=== PATIENT | male | born 1945 | race Caucasian/White ===

== ENCOUNTER 2017-02-20 13:55 | Inpatient (IN) | payer BC, OTHER ==
[2017-02-20] VITALS (11 sets, daily range): BP systolic 80–146; BP diastolic 59–88; PULSE 56–61; TEMP 36.8–37; O2SAT 94–99; Ht 177.8 cm; Wt 91.2 kg
[~2017-02-20] VITALS: Ht 177.8 cm; Wt 91.2 kg
[~2017-02-20 13:55] MED LIST: FISH OI1 OR; GLUC10007 PO; LISI-725 PO; METO25TA31 PO; MULT-506 PO; SIMV80TA5 OR
[2017-02-20] MEDS ORDERED: SODIUM CHLORIDE 0.9% 500ML 500 ML IV STA (14:03)
[2017-02-20] MEDS ORDERED: TICAGRELOR 90 MG TAB PO ONE (14:05)
[2017-02-20] MEDS ORDERED: FENTANYL CITRATE INJ 50 MCG/1 ML 2 ML VIAL ONE (14:07)
[2017-02-20] MEDS ORDERED: MIDAZOLAM HCL 1 MG/ML 2ML VIAL ONE (14:07)
[2017-02-20] MEDS ORDERED: HEPARIN SOD (PORCINE) 1000 UNIT/ML 10 ML VIAL ONE (14:08)
[2017-02-20] MEDS ORDERED: NURSING VERBAL MED ORDER STA (14:09)
[2017-02-20 14:17] LABS: BASO % 0.2 %; BASO ABS # 0.02 K/uL (0-0.2); COMPLETE YES; EOS % 0.9 %; HEMATOCRIT 49.4 % (42-52); IG% 0.1 %; LYMPH % 28.4 %; LYMPH ABS # 2.87 K/uL (1.2-3.4); MEAN CELL VOLUME 97.2 fL (80-100); MEAN CORPUSCULAR HEMOGLOBIN 34.1 pg (25-34); MEAN PLATELET VOLUME 10.9 fL (7.4-10.4); MONO % 9.7 %; NEUT % 60.7 %; PLATELET COUNT 201 K/uL (130-400); RED BLOOD COUNT 5.08 M/uL (4.7-6.1)
[2017-02-20 14:41] LABS: BLOOD UREA NITROGEN 15 mg/dl (7-18); BUN/CREATININE RATIO 13.3 (10-20); CALCIUM 8.9 mg/dl (8.5-10.1); CARBON DIOXIDE 29 mmol/L (21-32); CHLORIDE 105 mmol/L (98-107); GLUCOSE 220 mg/dl (70-99); POTASSIUM 3.8 mmol/L (3.5-5.1); SODIUM 139 mmol/L (136-145)
--- NOTE | 2017-02-20 14:41 | DIAGNOSTIC IMAGING REPORT ---
CHEST ONE VIEW PORTABLE CLINICAL HISTORY: Chest Pain COMPARISON STUDY: 12/28/2009 FINDINGS: There are postsurgical changes of midline sternotomy. Heart is mildly enlarged. There is mild central pulmonary vascular congestion. There is no focal pulmonary consolidation. There are no pleural effusions.[ IMPRESSION: Cardiomegaly and mild central pulmonary vascular congestion. No evidence of focal pulmonary consolidation Electronically signed by: Satish Newton M.D. 02/20/2017 2:39 PM Dictated Date/Time: 02/20/2017 2:39 PM
[2017-02-20] MEDS ORDERED: NiCARDipine HCL INJ 2.5 MG/ML 10 ML AMP ONE (14:51)
[2017-02-20] MEDS ORDERED: NITROGLYCERIN/D5W 100MCG/ML 20ML SYR ONE (14:52)
[2017-02-20 15:02] LABS: CKMB/CK RATIO 12.4 (0-3.0)
[2017-02-20] MEDS ORDERED: EPTIFIBATIDE 2 MG/ML 10 ML VIAL IV ONE (15:13)
[2017-02-20] MEDS ORDERED: EPTIFIBATIDE 0.75 MG/ML 75MG VIAL IV ONE (15:48)
[2017-02-20] MEDS ORDERED: NITROGLYCERIN OINT 2% 1GM PACKET ONE (15:58)
--- NOTE | 2017-02-20 16:01 | EMERGENCY ROOM VISIT NOTE ---
History Report prepared by Maggie: Jolynn Sosa Under the Supervision of: Tammy ToO. First contact with patient: 13:56 Chief Complaint: HEART ALERT Stated Complaint: HEART ALERT History of Present Illness The patient is a 71 year old male who presents to the Emergency Room with complaints of persistent left shoulder pain that began around 0400 this morning. The patient states that he has a history of a CABG 11 years ago. He states that over the last several days he has been doing increased strenuous work outside. The patient states that this morning at 0400 he developed left shoulder and left arm pain. He states that he went to the walk-in clinic for what he described as a muscle ache. The patient states that his muscle felt tight. He denies any nausea, shortness of breath, or vomiting. He denies being on any Plavix. The patient states that he takes Metoprolol daily. Source of History: patient Onset: 0400 this morning Position: shoulder (left) Quality: ache, other (tightness) Timing: other (persistent) Modifying Factors (Worsening): exertion Review of Systems See HPI for pertinent positives & negatives. A total of 10 systems reviewed and were otherwise negative. Past Medical & Surgical Medical Problems: (1) Heart disease (2) Hypertension Surgical Problems: (1) S/P CABG x 1 Family History Diabetes mellitus FH: heart disease Hypertension Social History Alcohol Use: none Marital Status: Housing Status: lives with significant other Occupation Status: employed Current/Historical Medications Scheduled , 1 OR DAILY Glucosamine Sulfate (Glucosamine), 1,000 MG PO DAILY Lisinopril (Zestril), 20 MG PO DAILY Metoprolol Tartrate (Metoprolol), 50 MG PO DAILY Multivitamin (Multivitamin), 1 TAB PO DAILY Simvastatin (Zocor), 80 MG OR HS Allergies Coded Allergies: Penicillins (Verified Allergy, Severe, ANAPHYLAXIS, 02/20/17) Physical Exam Vital Signs Date Time Temp Pulse Resp B/P Pulse Ox O2 Delivery O2 Flow Rate FiO2 02/20/17 14:01 95 Nasal Cannula 2.0 02/20/17 14:01 95 Nasal Cannula 2.0 02/20/17 14:01 93 18 173/96 95 Nasal Cannula 2.0 Physical Exam GENERAL: Sitting up in bed, alert, well appearing, well nourished, no distress, non-toxic EYE EXAM: normal conjunctiva. OROPHARYNX: no exudate, no erythema, lips, buccal mucosa, and tongue normal and mucous membranes are moist NECK: supple, no nuchal rigidity, no adenopathy, non-tender CHEST: Old midline incision in sternal region. LUNGS: Clear to auscultation. Normal chest wall mechanics HEART: no murmurs, S1 normal and S2 normal ABDOMEN: abdomen soft, non-tender, normo-active bowel sounds, no masses, no rebound or guarding. BACK: Back is symmetrical on inspection and there is no deformity, no midline tenderness, no CVA tenderness. SKIN: no rashes and no bruising UPPER EXTREMITIES: upper extremities are grossly normal. Radial pulses are equal bilaterally. LOWER EXTREMITIES: No pitting edema. Calves are equal bilaterally NEURO EXAM: Normal sensorium, cranial nerves II-XII grossly intact, normal speech, no gross weakness of arms, no gross weakness of legs. Medical Decision & Procedures ER Provider Diagnostic Interpretation: Radiology results as stated below per my review and the radiologist's interpretation: CHEST ONE VIEW PORTABLE CLINICAL HISTORY: Chest Pain COMPARISON STUDY: 12/28/2009 FINDINGS: There are postsurgical changes of midline sternotomy. Heart is mildly enlarged. There is mild central pulmonary vascular congestion. There is no focal pulmonary consolidation. There are no pleural effusions.[ IMPRESSION: Cardiomegaly and mild central pulmonary vascular congestion. No evidence of focal pulmonary consolidation Electronically signed by: Satish Newton M.D. 02/20/2017 2:39 PM Dictated Date/Time: 02/20/2017 2:39 PM Laboratory Results 02/20/17 14:05 Red Blood Count 5.08, Mean Corpuscular Volume 97.2, Mean Corpuscular Hemoglobin 34.1, Mean Corpuscular Hemoglobin Concent 35.0, Mean Platelet Volume 10.9, Neutrophils (%) (Auto) 60.7, Lymphocytes (%) (Auto) 28.4, Monocytes (%) (Auto) 9.7, Eosinophils (%) (Auto) 0.9, Basophils (%) (Auto) 0.2, Neutrophils # (Auto) 6.13, Lymphocytes # (Auto) 2.87, Monocytes # (Auto) 0.98, Eosinophils # (Auto) 0.09, Basophils # (Auto) 0.02 02/20/17 14:05 Test 02/20/17 14:05 White Blood Count 10.10 K/uL (4.8-10.8) Red Blood Count 5.08 M/uL (4.7-6.1) Hemoglobin 17.3 g/dL (14.0-18.0) Hematocrit 49.4 % (42-52) Mean Corpuscular Volume 97.2 fL (80-100) Mean Corpuscular Hemoglobin 34.1 pg (25-34) Mean Corpuscular Hemoglobin Concent 35.0 g/dl (32-36) Platelet Count 201 K/uL (130-400) Mean Platelet Volume 10.9 fL (7.4-10.4) Neutrophils (%) (Auto) 60.7 % Lymphocytes (%) (Auto) 28.4 % Monocytes (%) (Auto) 9.7 % Eosinophils (%) (Auto) 0.9 % Basophils (%) (Auto) 0.2 % Neutrophils # (Auto) 6.13 K/uL (1.4-6.5) Lymphocytes # (Auto) 2.87 K/uL (1.2-3.4) Monocytes # (Auto) 0.98 K/uL (0.11-0.59) Eosinophils # (Auto) 0.09 K/uL (0-0.5) Basophils # (Auto) 0.02 K/uL (0-0.2) RDW Standard Deviation 45.6 fL (36.4-46.3) RDW Coefficient of Variation 12.8 % (11.5-14.5) Immature Granulocyte % (Auto) 0.1 % Immature Granulocyte # (Auto) 0.01 K/uL (0.00-0.02) Anion Gap 5.0 mmol/L (3-11) Estimated GFR () 79.0 Estimated GFR (Non- 68.1 BUN/Creatinine Ratio 13.3 (10-20) Calcium Level 8.9 mg/dl (8.5-10.1) Total Creatine Kinase 401 U/L (39-308) Creatine Kinase MB 49.7 ng/ml (0.5-3.6) Creatine Kinase MB Ratio 12.4 (0-3.0) Troponin I 2.800 ng/ml (0-0.045) Laboratory results per my review. Medications Administered Medications (Trade) Dose Ordered Sig/Basia Route Start Time Stop Time Status Last Admin Dose Admin Sodium Chloride (Nss 500ml) 500 ml @ 999 mls/hr Q31M STAT IV 02/20/17 14:03 02/20/17 14:33 DC 02/20/17 14:03 999 MLS/HR Ticagrelor (Brilinta Cap) 180 mg STK-MED ONCE PO 02/20/17 14:05 02/20/17 14:06 DC 02/20/17 14:05 180 MG ECG Indication: chest pain, back/shoulder pain Rate (beats per minute): 91 Rhythm: sinus rhythm Findings: Q waves (Inferior), ST depression (Anterior), ST elevation (Inferior) , other (inferior STEMI) Comparison ECG Date: 12/28/09 Change: EKG Change: When compared to EKG on 12/28/09, ST elevations inferiorly are new, ST depressions anteriorly are new, Q waves inferiorly are old. ED Course ED COURSE: Vital signs were reviewed and showed hypertensive, tachycardic The patients medical record was reviewed The above diagnostic studies were performed and reviewed. ED treatments and interventions as stated above. 1356: The patient was evaluated in room B1. A complete history and physical examination was performed. 1357: Dr. Malave, Cardiology arrived at the patients bedside. 1403: Dr. Malave, Cardiology suggested to take the patient in for a cardiac catheterization. Ordered Sodium Chloride 500 ml @ 999 mls/hr IV. 1404: The patient has agreed to go to have a cardiac catheterization at this time. 1405: Ordered Ticagrelor 180 mg PO. 1407: Ordered Versed Inj 2 mg .route, Fentanyl Inj 100 mcg .route. 1408: Ordered Heparin Sod/Ns 2 units/DE 1000 unit .route, Heparin IV Bolus 10207 unit .route. 1415: The patient departed for the labor delivery specialist at this time. 1422: I discussed the patients case with Dr. Tam, [facility] [place]. He is going to evaluate the patient for further treatment after the cardiac catheterization. Medical Decision Differential diagnoses includes but is not limited to acute coronary syndrome, myocardial infarction, pericarditis, pulmonary embolus, aortic dissection, pneumonia, pneumothorax, musculoskeletal, shingles, esophageal. Patient is a 71-year-old male who presents to the ER transferred from the [facility] with midsternal chest tightness and arm tightness. This improved after a dose of aspirin. EMS was called and EKG was transmitted which showed an inferior STEMI with reciprocal changes. He does have a history of a previous CABG. Prior to presentation I activated a STEMI alert. EKG on presentation reconfirms an inferior STEMI. Patient was given antiplatelet along the ER by interventional cardiology. Patient was slightly tachycardic and hypertensive. He had are received aspirin. Blood work and IVs were obtained. He was placed on pacer pads. He was evaluated by interventional cardiology and taken directly to the Hospital Liaison for his inferior STEMI. Consults Time Called: 1420 Consulting Physician: LOUIS Calvillo Returned Call: 1422 I discussed the patients case with LOUIS Calvillo. He is going to evaluate the patient for further treatment after the cardiac catheterization. Impression Primary Impression: ST elevation myocardial infarction (STEMI) of inferior wall Critical Care I have personally spent 35 minutes of critical care time in the direct management of this patient. This includes bedside care, interpretation of diagnostic studies, and testing, discussion with consultants, patient, and family members, and other required patient management activities. This 35 minutes is in excess of all separately billable procedures. Scribe Attestation The scribe's documentation has been prepared under my direction and personally reviewed by me in its entirety. I confirm that the note above accurately reflects all work, treatment, procedures, and medical decision making performed by me. Departure Information Dispostion Being Evaluated By Hospitalist Ora Nicole M.D. (PCP)
[2017-02-20] MEDS ORDERED: LIDOCAINE/EPINEPHRINE 1% INJ 50 ML VIAL ONE (16:17)
[2017-02-20] MEDS ORDERED: ONDANSETRON INJ 2 MG/ML 2 ML VIAL IV PRN (17:00)
[2017-02-20] MEDS ORDERED: EPTIFIBATIDE BOLUS / DRIP IV ONE (17:00)
[2017-02-20] MEDS ORDERED: ACETAMINOPHEN 325 MG TAB PO PRN (17:00)
[2017-02-20] MEDS ORDERED: PATIENT'S HEIGHT AND/OR WEIGHT NEEDED SCH (17:30)
[2017-02-20] MEDS: SODIUM CHLORIDE 0.9% 1000ML 1,000 ML IV SCH ×2 (17:33→23:09)
--- NOTE | 2017-02-20 18:10 | History and Physical ---
History & Physical Date & Time of Service: February 20, 2017 at 17:56 Chief Complaint: St Elevation Myocardial Infarction Stemi Primary Care Physician: Ora Cabello M.D. History of Present Illness Source: patient, other 71 y/o M Hx CAD, HTN, HPL. Pt presented with CP - inferior elevations noted on initial EKG. Pt was transported directly to the manager lab and had a stent placed in an occluded OM graft. No complications were reported and he is CP- free, recovering in the ICU at the time of medical evaluation. He denies SOB, N /V or palpitations. 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 Smoking Status: Never Smoker Marital Status: Occupational Status: employed Multi-Drug Resistant Organisms History of MDRO: No Allergies Coded Allergies: Penicillins (Verified Allergy, Severe, ANAPHYLAXIS, 02/20/17) Home Medications Scheduled , 1 OR DAILY Glucosamine Sulfate (Glucosamine), 1,000 MG PO DAILY Lisinopril (Zestril), 20 MG PO DAILY Metoprolol Tartrate (Metoprolol), 50 MG PO DAILY Multivitamin (Multivitamin), 1 TAB PO DAILY Simvastatin (Zocor), 80 MG OR HS Review of Systems Constitutional: No chills, No fever, No sweats Eyes: No eye pain, No worsening of vision ENT: No hearing loss, No nasal symptoms, No unusual epistaxis Respiratory: + shortness of breath, No cough, No sputum, No wheezing Cardiovascular: + chest pain, No PND, No orthopnea Abdomen: No nausea, No pain, No vomiting Musculoskeletal: No joint pain, No muscle pain Genitourinary - Male: No dysuria, No hematuria, No urinary frequency, No urinary urgency Neurologic: No memory loss, No paralysis, No weakness Psychiatric: No depression symptoms Endocrine: No fatigue Hematologic / Lymphatic: No abnormal bleeding/bruising Integumentary: No rash Allergic / Immunologic: No environmental allergies Physical Exam Vital Signs Date Time Temp Pulse Resp B/P Pulse Ox O2 Delivery O2 Flow Rate FiO2 02/20/17 17:45 56 20 146/79 98 02/20/17 17:30 60 20 141/80 97 02/20/17 17:15 60 18 131/75 96 02/20/17 17:00 36.8 61 18 138/81 96 Room Air 02/20/17 17:00 36.8 61 18 138/81 96 Room Air 4.0 02/20/17 16:35 68 16 122/83 97 Room Air 02/20/17 16:20 73 16 144/88 99 Nasal Cannula 4 02/20/17 14:01 95 Nasal Cannula 2.0 02/20/17 14:01 95 Nasal Cannula 2.0 02/20/17 14:01 93 18 173/96 95 Nasal Cannula 2.0 General Appearance: WD/WN, no apparent distress Head: normocephalic, atraumatic Eyes: normal inspection, PERRL, EOMI ENT: normal ENT inspection, hearing grossly normal, TMs normal, pharynx normal Neck: supple, no JVD Respiratory/Chest: chest non-tender, lungs clear, normal breath sounds Cardiovascular: regular rate, rhythm, no edema, no gallop Abdomen/GI: normal bowel sounds, non tender, soft Back: normal inspection Extremities/Musculoskelatal: normal inspection, no calf tenderness, normal capillary refill Neurologic/Psych: enamel drier II-XII nml as tested, no motor/sensory deficits, alert, normal mood/affect, normal reflexes, oriented x 3 Skin: normal color, warm/dry, no rash Diagnostics Laboratory Results Results Past 24 Hours Test 02/20/17 14:05 02/20/17 15:17 02/20/17 15:40 Range/Units White Blood Count 10.10 4.8-10.8 K/uL Red Blood Count 5.08 4.7-6.1 M/uL Hemoglobin 17.3 14.0-18.0 g/dL Hematocrit 49.4 42-52 % Mean Corpuscular Volume 97.2 80-100 fL Mean Corpuscular Hemoglobin 34.1 25-34 pg Mean Corpuscular Hemoglobin Concent 35.0 32-36 g/dl Platelet Count 201 130-400 K/uL Mean Platelet Volume 10.9 7.4-10.4 fL Neutrophils (%) (Auto) 60.7 % Lymphocytes (%) (Auto) 28.4 % Monocytes (%) (Auto) 9.7 % Eosinophils (%) (Auto) 0.9 % Basophils (%) (Auto) 0.2 % Neutrophils # (Auto) 6.13 1.4-6.5 K/uL Lymphocytes # (Auto) 2.87 1.2-3.4 K/uL Monocytes # (Auto) 0.98 0.11-0.59 K/uL Eosinophils # (Auto) 0.09 0-0.5 K/uL Basophils # (Auto) 0.02 0-0.2 K/uL RDW Standard Deviation 45.6 36.4-46.3 fL RDW Coefficient of Variation 12.8 11.5-14.5 % Immature Granulocyte % (Auto) 0.1 % Immature Granulocyte # (Auto) 0.01 0.00-0.02 K/uL Sodium Level 139 136-145 mmol/L Potassium Level 3.8 3.5-5.1 mmol/L Chloride Level 105 98-107 mmol/L Carbon Dioxide Level 29 21-32 mmol/L Anion Gap 5.0 3-11 mmol/L Blood Urea Nitrogen 15 7-18 mg/dl Creatinine 1.10 0.60-1.40 mg/dl Estimated GFR () 79.0 Estimated GFR (Non- 68.1 BUN/Creatinine Ratio 13.3 10-20 Random Glucose 220 70-99 mg/dl Calcium Level 8.9 8.5-10.1 mg/dl Total Creatine Kinase 401 39-308 U/L Creatine Kinase MB 49.7 0.5-3.6 ng/ml Creatine Kinase MB Ratio 12.4 0-3.0 Troponin I 2.800 0-0.045 ng/ml Kaolin Activated Coagulation Time 183 255 94-140 SECONDS Microbiology Results 02/20/17 MRSA DNA Surveillance Screen, Received Pending EKG Initial EKG: Sinus rhythm - inferior segment ST elevations / STEMI Impression Assessment and Plan 71 y/o M Hx CAD, HTN, HPL. Pt presented with CP - inferior elevations noted on initial EKG. Pt was transported directly to the manager lab and had a stent placed in an occluded OM graft. No complications were reported and he is CP- free, recovering in the ICU at the time of medical evaluation. He denies SOB, N /V or palpitations. 1) CAD/HI - pt is post cath/stent as above - there was some concern of thrombus formation in the stented vessel so that per cardio he will remain on Integrilin overnight. Pt will continue his ASA, B sharmaine, Statin - likely will be D/Cd on Plavix as well. 2) HTN - Cont Toprol, Lisinopril 3) HPL - statin therapy continued - dose increased 4) Marginal EF on echo 2013 - no reported history of volume overload - monitor on telemetry - euvolemic at the time of evaluation Full code - Full dose Heparin Total time for this admit including review of labs, meds, EKG, records - discussion with pt and Optical Element Coater - including critical care time 37 min Level of Care Critical Care Advanced Directives Existing Living Will: Yes Existing Power of Molder Apprentice: Yes VTE Prophylaxis VTE Risk Assessment Done? Y/N: Yes Risk Level: Moderate Given or contraindicated: Other Anticoagulation
[2017-02-20] MEDS: EPTIFIBATIDE INJ 75 MG PREMIXED IV SCH ×2 (18:14→23:08)
--- NOTE | 2017-02-20 18:19 | Procedure Note ---
Pre-Mod Sedation Assessment General Date of Moderate Sedation: February 20, 2017. Vital Signs: Vital Signs Past 12 Hours Date Time Temp Pulse Resp B/P Pulse Ox O2 Delivery O2 Flow Rate FiO2 02/20/17 17:45 56 20 146/79 98 02/20/17 17:30 60 20 141/80 97 02/20/17 17:15 60 18 131/75 96 02/20/17 17:00 36.8 61 18 138/81 96 Room Air 02/20/17 17:00 36.8 61 18 138/81 96 Room Air 4.0 02/20/17 16:35 68 16 122/83 97 Room Air 02/20/17 16:20 73 16 144/88 99 Nasal Cannula 4 02/20/17 14:01 95 Nasal Cannula 2.0 02/20/17 14:01 95 Nasal Cannula 2.0 02/20/17 14:01 93 18 173/96 95 Nasal Cannula 2.0 Review Cardiovascular: regular rate, rhythm, no edema Abdomen: normal bowel sounds, non tender Lungs: chest non-tender, lungs clear Airway Class: II Pre-Sedation Airway Assessment Oral Cavity: Dental Abnormalities Able to Visualize Vocal Cords: No Short Thick Neck: Yes Hx of Sleep Apnea: No Smoking Status: Never Smoker Mallampati Classification: Class III ASA Classification: Class II Procedure Planning Contraindications-for Mod Sed: None Yes Notes The planned sedation has been discussed with the patient and consent obtained. I have identified the patient, determined the appropriateness of sedation and have assessed the patient immediately prior to the procedure. All medicine(s) and interventions are by my order.
--- NOTE | 2017-02-20 18:20 | Procedure Note ---
Post-Mod Sedation Assessment General Date of Moderate Sedation February 20, 2017. Vital Signs: Vital Signs Past 12 Hours Date Time Temp Pulse Resp B/P Pulse Ox O2 Delivery O2 Flow Rate FiO2 02/20/17 17:45 56 20 146/79 98 02/20/17 17:30 60 20 141/80 97 02/20/17 17:15 60 18 131/75 96 02/20/17 17:00 36.8 61 18 138/81 96 Room Air 02/20/17 17:00 36.8 61 18 138/81 96 Room Air 4.0 02/20/17 16:35 68 16 122/83 97 Room Air 02/20/17 16:20 73 16 144/88 99 Nasal Cannula 4 02/20/17 14:01 95 Nasal Cannula 2.0 02/20/17 14:01 95 Nasal Cannula 2.0 02/20/17 14:01 93 18 173/96 95 Nasal Cannula 2.0 Review - Discharge Criteria Vital Signs Stable: Yes Alert/Oriented/Conversant: Yes Returned to Baseline Mental St: Yes Nausea Absent/Minimal: Yes Pain/Discomfort/Absent/Minimal: Yes Normal/Baseline Respirations: Yes Active Bleeding?: N/A Pt Received D/C Instructions: N/A Prescriptions Given: None Specific Proced. D/C Criteria Distal Pulses Present (Cardiac: Yes Groin site assessed-Card Cath: N/A Voided Prior To Discharge: N/A Discharged Patients Adult Escort/Transportation: Yes
[2017-02-20] MEDS ORDERED: GLUCOSE 10 TABS/TUBE PO PRN (18:30)
[2017-02-20] MEDS ORDERED: GLUCOSE 40% GEL 15 GM TUBE PO PRN (18:30)
[2017-02-20] MEDS ORDERED: DEXTROSE 50% 50 ML SYR IV PRN (18:30)
[2017-02-20] MEDS ORDERED: GLUCAGON FOR INJ 1 MG VIAL SQ PRN (18:30)
--- NOTE | 2017-02-20 18:50 | Cardiac Catheterization ---
Procedure Note Procedure Date February 20, 2017. Pre-Procedure Diagnosis STEMI AUC Score 9 Post-Procedure Diagnosis Severe CAD, Successful PCI Procedure(s) Performed Coronary Angiography, Aspiration Thrombectomy, Drug Eluting Stent, Aortography, Femoral Artery Angiography Playground Supervisor Dr. Malave Mechanic/Welder(s) Estimated Blood Loss Medication(s) Fentanyl, Heparin, Integrilin, Nicardipine, Versed, Lidocaine 1% Ticagrelor Summary of Findings Indication: STEMI/Heart Alert Access: 6Fr Right Femoral Vein Catheters: JR4, JL4, PRESTON, LCB, pigtail, AR1; AR1 guide Findings: LM - Calcified, completely occluded proximally OLEARY - LAD - Widely patent, anastomosis with diagonal which retrofills small LAD. LAD and diagonal with luminal irregularities SVG - OM - Complete acute proximal occlusion with heavy thrombus burden RCA - Occluded in the mid segment. SVG - RCA - Widely patent to mid PDA. Distal PDA with mild to moderate diffuse disease. Flow from PDA retrofills PLBs with 90% ostial PDA stenosis. Aortography -- mild ascending aorta dilation. Unable to find reported SVG to diagonal -- suspect occluded. No AI. Suspect some degree of based on catheter whip. Patent CHAIRMAN CEO, high bifurcation, mild ostial SFA stenosis. Ok for external device closure. -- PCI -- Antithrombotic therapy: Heparin, Integrilin, Ticagrelor Procedure: SVG-OM cannulated with AR1 guide IC Integrilin administered down SVG Filter wire passed into distal vein graft but removed after aspiration catheter became stuck on kinked wire. Filter wire removed. BMW passed into OM 2 separate aspiration thrombectomy runs performed and 2nd bolus IC Integrilin administered to distal vein graft 4.0 x 28 Xience DESHAWN placed to mid vein graft. Stent post-dilated with 4.5 balloon. IC nicardipine administered for spasm. Post procedure MARIA D 3 flow, stent well expanded with minimal residual stenosis. Distal vein graft large, almost aneurysmal with questionable filling defect (? thrombus) vs poor filling. Started on IV integrilin drip. Arterial Closure: StarClose Summary: 1. Inferior STEMI/Acutely occluded SVG-OM 2. Severe chronic [place] coronary artery disease - Occluded left main - Occluded mid RCA 3. Patent OLEARY-LAD, SVG-PDA (90% ostial PDA stenosis prior to retrofilled PLBs) , suspected occlusion of SVG-diagonal 4. Successful PCI of SVG-OM with aspiration thrombectomy and 4.0 x 28 Xience stent placement to mid vein graft. Recommendations: Admit to ICU for continued monitoring Loaded with Ticagrelor in ED Continue dual-antiplatelet therapy with ASA/Ticagrelor; May switch to clopidogrel prior to discharge with plan for DAPT for 1 year Continue integrilin for 12 hrs IV fluids overnight Trend troponins until peak, Check Echo in AM Uptitrate beta-sharmaine/FELTON as BP allows High-dose statin Consult cardiac Rehab Medical management of ostial PDA disease unless significant symptoms as an outpatient Hemodynamics Rest Ao: 148/76/105 Final Ao: 130/67/92 LV: -- Recommendations PCI without planned CABG Specimens None Radiation Exposure (mGy) 5211 Contrast (mls) 335 Fluids (cc crystalloids) 240 Drains none Anesthesia moderate Procedural Complication(s) None Disposition ICU ACC Data Cardiac Status Clinical evaluation leading to the procedure CAD Presntation: STEMI STEMI or Non-STEMI: Symptom Onset Date/Time: 04:00 Thrombolytics: No Anginal Classification: CCS IV Heart Failure: No, NYHA Class: CCS I Cardiogenic Shock w/in 24Hrs: No Cardiac Arrest w/in 24Hrs: No Imaging studies past 6 months: No Stress studies past 6 months: No Standard Exercise Stress Test: No Stress Echocardiogram: No Stress Testing w/SPECT MPI: No Cardiac CTA: No Coronary Anatomy Dominant: Right Left Main (% Stenosis): Proximal (100) OM2 (% Stenosis): Normal (Distal to SVG anastomosis) R PDA (% Stenosis): Ostial (90), Distal (Distal to anastomosis) Grafts - LAD (%): Normal Grafts - Circumflex (%): Proximal (Acute) Grafts - RCA (%): Normal Diagnostic Physician's Name: Rojelio Malave MD Status: Emergency Closure Device Percutaneous Entry Location: Radial Closure Device: StarClose Recommendations: PCI without planned CABG PCI Indication: Immediate PCI for STEMI First Noted: First EKG Reason For Delay in PCI: Unkown graft anatomy. Difficulty finiding acutely occluded vein graft Lesion Segment Name: SVG-OM Culprit Artery: Yes Stenosis Prior to Rx (%): 100 Chronic Total Occlusion: No IVUS: No FFR: No Pre-Procedure MARIA D Flow: 0 Previously Treated Lesion: No Lesion Complexity: High/C Lesion Length (mm): 25 Thrombus Present: Yes Bifurcation Lesion: No Guidewire Across Lesion: Yes Guidewire: Stenosis Post-Procedure (%): 0 Post-Procedure MARIA D Flow: 3 Device(s) Deployed: Yes Intraprocedure Events Significant Dissection: No Perforation: No
[2017-02-20] MEDS: METOPROLOL TARTRATE 25 MG TAB PO SCH (20:54)
[2017-02-20] MEDS: INSULIN ASPART 100 UNITS/ML 3 ML PEN SC SCH (21:00)
--- NOTE | 2017-02-20 22:44 | CRITICAL CARE CONSULTATION ---
DATE OF CONSULTATION: 02/20/2017 CHIEF COMPLAINT: Shoulder pain. 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 He reports that he may have had pain around 4:00 a.m. when he thinks he woke up and his shoulders felt tight, but he went back to sleep. He believes it must have resolved, but when he was at his dentist's office today sitting in the chair, he felt tightness across his shoulder blades and down both arms. He denies chest pain, nausea or diaphoresis, but felt slightly short of breath. 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 He said he was not feeling very well and could not be more specific but decided to go to the walk-in clinic at [facility]. An EKG was done there and reportedly it showed inferior ST-segment elevations, so he was transported to [facility]. Somewhere along the line, he was given an aspirin and his EKG in the Emergency Department indeed revealed ST-segment elevations. He was also given ticagrelor 180 mg and normal saline 500 mL. He was bolused with heparin and was taken to the cardiac catheterization lab. I should note that he has a history of coronary artery disease and is status post coronary artery bypass grafting surgery x4 vessels 16 years ago. He reports that the pain he had today is not similar to what he had previously. In the cardiac catheterization lab, a right femoral approach was taken and he eventually received a drug-eluting stent to his SVG to OM graft. He is now in the intensive care unit and denies chest pain or shoulder pain. He also denies shortness of breath or nausea. PAST MEDICAL HISTORY: Coronary artery disease as previously described. His gaming manager is Dr. Matthew Crowell. Hypertension, now seeing Dr. Blevins. ALLERGIES: TO PENICILLIN. OUTPATIENT MEDICATIONS: Lisinopril, metoprolol, multivitamin, Zocor. All of these doses have been reviewed and are as documented on the chart. SOCIAL HISTORY: He is a lifelong nonsmoker and does not drink any alcohol. 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 FAMILY HISTORY: Significant for grandmother with diabetes mellitus, both parents dying from congestive heart failure, an uncle dying from heart failure at age 58 and hypertension. REVIEW OF SYSTEMS: He denies any recent chest pain, cough, fevers, chills, diarrhea, abdominal pain, weakness, numbness, tingling, falls, bleeding. He did have a crown break and he was at the dentist in order to have a temporary crown put back on after impressions were made. Additional review of systems are negative or noncontributory in 12-point system other than what are presented in the history of present illness. PHYSICAL EXAMINATION: VITAL SIGNS: Temperature 36.8, heart rate 60, respiratory rate 20, blood pressure 141/80, oxygen saturation 97% on room air. HEENT: Pupils are equally round and reactive to light. He wears glasses. Oral mucosa is slightly dry. There is a temporary crown on the left first molar and an area around the gum that may have a little bit of clot, but there is no bleeding. Posterior pharynx is clear. NECK: Veins are flat. LUNGS: Clear to auscultation bilaterally. No rales, rhonchi or wheezes. HEART: Regular rate and rhythm with a 2/6 murmur heard best at the left sternal border. ABDOMEN: Obese, soft, nondistended, nontender. Active bowel sounds. EXTREMITIES: Warm. No edema. The right groin dressing is clean, dry and intact. The thigh is soft. Dorsalis pedis pulse on the right is 2+. NEUROLOGIC: He is awake, alert, and easily able to carry on a conversation. LABORATORY DATA: White blood cell count 10, hemoglobin 17.3, hematocrit 49.4, platelets 201. Sodium 139, potassium 3.8, chloride 105, CO2 29, BUN 15, creatinine 1.1. Blood sugar 220. Troponin 2.8, total CPK 401. ACT at 1540 is 255. Portable chest x-ray was reviewed and shows cardiomegaly with mild central pulmonary vascular congestion. Post-cardiac catheterization EKG shows sinus bradycardia with inferior ST-segment elevations. IMPRESSION: 1. Status post acute inferior wall myocardial infarction. 2. Status post drug-eluting stent to the saphenous vein graft to obtuse marginal. Presently on Integrilin and he received heparin boluses before and during his cardiac catheterization. 3. History of coronary artery disease, status post coronary artery bypass grafting surgery x4 vessels in 2005. 4. Status post removal of broken crown on the left upper molar today. 5. History of hypertension. 6. Hyperglycemia, no history of diabetes mellitus. 7. Probable hypercholesterolemia. PLAN: 1. Continue aspirin, Integrilin, FELTON inhibitor. He is now on Brilinta as well. Metoprolol has been ordered but he is bordering on bradycardic presently. 2. Check a hemoglobin A1c and consider sliding scale insulin. 3. Trend troponins and await echocardiogram. 4. Allow a cardiac diet. 5. Continue normal saline at 100 mL per hour and check creatinine tomorrow given his above average dye load today. Thank you for asking me to see this nice gentleman. Please call me with any questions or concerns.
[2017-02-21] VITALS (11 sets, daily range): BP systolic 97–126; BP diastolic 58–77; PULSE 53–73; TEMP 36.9–37.3; O2SAT 92–97
[2017-02-21 06:28] LABS: BASO % 0.1 %; BASO ABS # 0.01 K/uL (0-0.2); COMPLETE YES; EOS % 0.8 %; HEMATOCRIT 44.8 % (42-52); IG% 0.2 %; LYMPH % 22.6 %; LYMPH ABS # 2.11 K/uL (1.2-3.4); MEAN CORPUSCULAR HEMOGLOBIN 33.3 pg (25-34); MEAN CORPUSCULAR HGB CONC 34.4 g/dl (32-36); MONO % 12.1 %; NEUT % 64.2 %; PLATELET COUNT 163 K/uL (130-400); RED BLOOD COUNT 4.62 M/uL (4.7-6.1); WHITE BLOOD COUNT 9.32 K/uL (4.8-10.8)
[2017-02-21] MEDS: INSULIN ASPART 100 UNITS/ML 3 ML PEN SC SCH ×4 (06:45→20:42)
[2017-02-21] MEDS ORDERED: Integrelin infusion --> STOP ORDER ONE (07:00)
[2017-02-21 07:03] LABS: ESTIMATED AVERAGE GLUCOSE 126 mg/dl; HA1C FLAG Normal (Normal)
[2017-02-21 07:12] LABS: BUN/CREATININE RATIO 13.2 (10-20); CREATININE 0.97 mg/dl (0.60-1.40); MAGNESIUM 2.1 mg/dl (1.8-2.4); POTASSIUM 4.4 mmol/L (3.5-5.1)
--- NOTE | 2017-02-21 07:46 | HISTORY & PHYSICAL EXAMINATION ---
DATE OF ADMISSION: 02/20/2017 CHIEF COMPLAINT: Chest tightness/heart alert. PRIMARY CARE PHYSICIAN: Ora Cabello MD HISTORY OF PRESENT ILLNESS: Mr. Costa is a 71-year-old male with a history of coronary artery disease status post 4-vessel CABG at [facility] by Dr. Alonzo in 2005, who presented today with acute onset of chest tightness and was found to have inferior ST elevation MO. The patient states that he had been doing well following his prior bypass surgery. Bypass surgery was done in the setting of inferior STEMI for which he initially presented to [facility] before being transferred to [facility] where he underwent urgent bypass after found to have significant multivessel ute mountain disease. 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 He has not seen a logging shovel operator though in more than 5 years. Today, he had been driving to [employer] to see his dentist and states that early this morning around 4:00 a.m. he noticed some initial chest tightness and then states that he was driving around town, he just felt like "crap". He states this exactly how he felt though when he has prior MO and as a result presented to urgent care with the [facility]. There, he had an EKG done which showed inferior ST elevations and as a result was transferred via EMS to the [facility] ED. In the ED, he was hemodynamically stable and was having minimal chest discomfort, but his EKG did again showed inferior ST elevations with some lateral ST depressions. A heart alert was activated and the patient was taken emergently to the cardiac catheterization lab. Cath revealed severe ute mountain disease with an occluded left main and occluded mid RCA with some difficulty, identified a vein graft to his PDA which was largely patent and OLEARY to the LAD and first diagonal which was also patent. Eventually, I was able to find a vein graft to OM which was acutely occluded. This vein graft was treated with IC Integrilin use of the filter wire and aspiration thrombectomy and eventually was stented with a 4.0 x 28 Xience drug-eluting stent. This was postdilated to 4.5 cm. Post-procedure, he had good distal flow, MARIA D 3. He was chest pain free. There was questionable thrombus in the most distal part of the vein graft. This also could though represent poor vessel filling as segment is aneurysmal enlarged that area. Regardless, the patient was started on Integrilin infusion to run overnight. PAST MEDICAL HISTORY: 1. Coronary artery disease status post 4-vessel CABG by Dr. Cheri vasquez at [facility] in February of 2006. 2. Hypertension. FAMILY HISTORY: Denies significant family history of premature coronary disease or sudden cardiac . SOCIAL HISTORY: Lifelong nonsmoker. Denies significant alcohol use. Lives with his , has 2 grown sons. MEDICATIONS: Include fish oil, glucosamine, lisinopril 20, metoprolol tartrate 50 mg daily, multivitamin, and simvastatin 80. ALLERGIES: PENICILLINS. REVIEW OF SYSTEMS: Not completed due to urgent emergent care. PHYSICAL EXAMINATION: VITAL SIGNS: Temperature 36.8, pulse 61, blood pressure 138/81, satting 96% on room air. GENERAL: The patient appears comfortable, no acute distress. HEENT: Sclerae are anicteric. Oropharynx is clear. NECK: Supple, no lymphadenopathy. LUNGS: Clear to auscultation bilaterally. HEART: Irregular rhythm with no murmurs, rubs, or gallops. ABDOMEN: Soft, nontender, nondistended with positive bowel sounds. EXTREMITIES: Warm with no significant lower extremity edema. He has intact 2+ radial pulses. Right femoral artery access site shows no significant ecchymosis or evidence of hematoma. LABORATORY DATA: White blood cell count 10.1, hemoglobin 17.3, platelets of 201. Chemistry: Sodium 139, potassium 3.8, BUN 15, creatinine of 1.1. Initial CK-MB of 49 and troponin of 2.8. IMAGING DATA: Chest x-ray showed no acute cardiopulmonary process. Initial EKG showed sinus rhythm at a ventricular rate of 91. There were inferior Q-waves as well as inferior ST elevations. There were lateral ST depressions in I, aVL, and V2 through V6. IMPRESSION AND PLAN: Mr. Costa is a 71-year-old male with a history of coronary artery disease status post 4-vessel coronary artery bypass grafting here with an inferior ST elevation myocardial infarction and anterolateral ST depressions on EKG found to have an occluded vein graft to obtuse marginal which was treated with primary percutaneous coronary intervention with aspiration thrombectomy and 1 drug-eluting stent to his vein graft. 1. Inferior ST elevation myocardial infarction: The patient is status post successful primary percutaneous coronary intervention with drug-eluting stent. We will plan to admit to ICU for monitoring overnight. In the setting of questionable thrombus in his distal vein graft, we will continue on Integrilin infusion. Was loaded with ticagrelor in the Emergency Department and we will continue on ticagrelor b.i.d. We will consider transition to clopidogrel on discharge. Continue aspirin. Continue high intensity statin and we will start on metoprolol and lisinopril. 2. Hypertension: As above, we will continue on metoprolol and lisinopril and titrate as needed. 3. Risk for contrast nephropathy: The patient received a significant amount of contrast for procedure. We will hydrate overnight and continue to monitor GFR. 4. Prophylaxis: On Integrilin, has received recent heparin. We will consider starting a pharmacologic deep venous thrombosis prophylaxis tomorrow post-completion of Integrilin. DISPOSITION: The patient to be discharged to home when chest pain free and tolerating a new drug regimen. Suspect 2-3 days. MTDD
[2017-02-21] MEDS: ATORVASTATIN 40 MG TAB PO SCH (08:31)
[2017-02-21] MEDS: ASPIRIN 81 MG ECTAB PO SCH (08:31)
[2017-02-21] MEDS: GLUCOSAMINE SULFATE 500 MG CAP PO SCH (08:32)
[2017-02-21] MEDS: METOPROLOL TARTRATE 25 MG TAB PO SCH ×3 (09:00→20:48)
[2017-02-21] MEDS: TICAGRELOR 90 MG TAB PO SCH ×2 (09:43→20:48)
[2017-02-21] MEDS: LISINOPRIL 20 MG TAB PO SCH (09:43)
--- NOTE | 2017-02-21 14:45 | ECHOCARDIOGRAM REPORT ---
*NOTICE TO RECEIVING [employer] This information is strictly Confidential and protected under [place] law. [place] law prohibits you from making any further disclosure of this information unless further disclosure is expressly permitted by the written consent of the person to whom it pertains or is authorized by law. A general authorization for the release of medical or other information is not sufficient for this purpose. Hospital accepts no responsibility if the information is made available to any other person, INCLUDING THE PATIENT. Interpretation Summary * Name: RADHA GONZALEZ Study Date: 02/21/2017 06:28 AM BP: 115/77 mmHg * [facility]1 HR: 67 * : 1945 (M/d/yyy) Gender: Male Height: 69 in * Age: 71 yrs Ethnicity: CA Weight: 214 lb * Ordering Physician: Rojelio Malave * Referring Physician: No Doctor, Assigned * Performed By: Jolynn Mcdowell RDCS * * Reason For Study: AMI * BSA: 2.1 m2 * -- Conclusions -- * The left ventricle is mildly dilated. * There is moderate concentric left ventricular hypertrophy. * Left ventricular systolic function is mildly reduced. * Diastolic dysfunction, Grade II, consistent with elevated left atrial pressure. * There are regional wall motion abnormalities as specified. * The left atrium is moderately dilated. * When compared directly to a study from 2013, the diastolic function is worse, but no other significant changes. Procedure Details * A contrast injection of Definity was performed to improve assessment of LV function. * Contrast was injected into an intravenous site in the left arm. * One vial of Definity ultrasound contrast was diluted in normal saline to a total volume of 10 ml. A total of '2' ml of solution was administered during imaging. * Lot # [id number] of Definity utilized for procedure. * Expiration date MAR 23. * The attending nurse who injected the contrast agent was KELLY TORRES. Left Ventricle * The left ventricle is mildly dilated. * There is moderate concentric left ventricular hypertrophy. * Ejection Fraction = 40-45%. * Left ventricular systolic function is mildly reduced. * Diastolic dysfunction, Grade II, consistent with elevated left atrial pressure. * There are regional wall motion abnormalities as specified. * Inferior basal hypokinesis is moderate with mild inferior apical hypokinesis Right Ventricle * The right ventricle is normal in size and function. Atria * The left atrium is moderately dilated. * Right atrial size is normal. Mitral Valve * The mitral valve is grossly normal. * Significant mitral regurgitation is absent. Tricuspid Valve * The tricuspid valve is not well visualized, but is grossly normal. Aortic Valve * Calcified aortic valve with reduced excursion * Transaortic velocity suggests no significant , however, 2-D images suggest at least mild * There is no significant aortic regurgitation. Great Vessels * The aortic root is normal size. Pericardium/Pleural * There is no pericardial effusion. Great Vessels * Normal inferior vena cava size and collapsability with sniff indicates a normal right atrial pressure of 3 mmHg MMode 2D Measurements and Calculations IVSd 1.7 cm IVSs 2.2 cm LVIDd 5.4 cm LVIDs 4.3 cm LVPWd 1.6 cm LVPWs 1.6 cm IVS/LVPW 1.1 FS 19.9 % EDV(Teich) 139.9 ml ESV(Teich) 83.3 ml EF(Teich) 40.5 % EDV(cubed) 155.5 ml ESV(cubed) 79.8 ml EF(cubed) 48.7 % % IVS thick 27.6 % % LVPW thick 2.2 % LV mass(C)d 424.2 grams LV mass(C)dI 199.5 grams/m\S\2 LV mass(C)s 388.4 grams LV mass(C)sI 182.7 grams/m\S\2 SV(Teich) 56.6 ml SI(Teich) 26.6 ml/m\S\2 SV(cubed) 75.6 ml SI(cubed) 35.6 ml/m\S\2 Ao root diam 3.3 cm Ao root area 8.6 cm\S\2 LA dimension 4.6 cm LA/Ao 1.4 LVAd ap4 48.6 cm\S\2 LVLd ap4 10.1 cm EDV(MOD-sp4) 188.0 ml EDV(sp4-el) 198.7 ml LVAs ap4 35.6 cm\S\2 LVLs ap4 8.8 cm ESV(MOD-sp4) 116.6 ml ESV(sp4-el) 121.8 ml EF(MOD-sp4) 38.0 % EF(sp4-el) 38.7 % LVAd ap2 45.5 cm\S\2 LVLd ap2 9.8 cm EDV(MOD-sp2) 174.4 ml EDV(sp2-el) 179.0 ml LVAs ap2 32.5 cm\S\2 LVLs ap2 9.0 cm ESV(MOD-sp2) 98.0 ml ESV(sp2-el) 99.0 ml EF(MOD-sp2) 43.8 % EF(sp2-el) 44.7 % LVLd %diff -2.55 % EDV(MOD-bp) 183.2 ml LVLs %diff 2.1 % ESV(MOD-bp) 106.9 ml EF(MOD-bp) 41.7 % SV(MOD-sp4) 71.4 ml SI(MOD-sp4) 33.6 ml/m\S\2 SV(MOD-sp2) 76.4 ml SI(MOD-sp2) 35.9 ml/m\S\2 SV(MOD-bp) 76.3 ml SI(MOD-bp) 35.9 ml/m\S\2 SV(sp4-el) 76.9 ml SI(sp4-el) 36.1 ml/m\S\2 SV(sp2-el) 80.0 ml SI(sp2-el) 37.6 ml/m\S\2 Doppler Measurements and Calculations MV E max qiana 96.0 cm/sec MV A max qiana 77.6 cm/sec MV E/A 1.2 MV dec time 0.21 sec Ao V2 max 205.1 cm/sec Ao max PG 16.8 mmHg Ao max PG (full) 14.2 mmHg LV V1 max PG 2.6 mmHg LV V1 max 81.0 cm/sec
--- NOTE | 2017-02-21 15:17 | CRITICAL CARE PROGRESS NOTE ---
DATE: 02/21/2017 SUBJECTIVE: There were no acute events overnight. The patient's care was discussed in detail on multidisciplinary rounds today. He denies chest pain and is eating well. He was out of bed to a chair when I was talking to him. He had one 13-beat run of ventricular tachycardia which was asymptomatic. He is off the Integrilin. OBJECTIVE: VITAL SIGNS: Temperature 37.2, heart rate 50s, respiratory rate 13-19, blood pressure 97-122/60-70s and oxygen saturation 96% on room air. GENERAL: He is awake, alert and in no distress. LUNGS: Clear to auscultation bilaterally. HEART: Bradycardic, regular. No murmurs. ABDOMEN: Deferred due to his seated position. EXTREMITIES: No edema. Right dorsalis pedis pulse 1+, good capillary refill. LABORATORY DATA: Sodium 142, potassium 4.4, chloride 110, CO2 25, BUN 13, creatinine 0.97. Peak troponin 84, most recent troponin 77.5. White blood cell count 9.32, hemoglobin 15.4, hematocrit 44.8 and platelets 163. MEDICATIONS: Acetaminophen, aspirin, Lipitor, insulin sliding scale, lisinopril, Lopressor, Zofran and Brilinta. IMPRESSION: 1. Status post acute inferior wall myocardial infarction and drug-eluting stent to his obtuse marginal graft yesterday. He is doing well and is off his Integrilin. He is on Brilinta, aspirin, statin and FELTON inhibitor. His metoprolol may be held secondary to bradycardia. 2. Sinus bradycardia. 3. Elevated blood sugar, resolved. Hemoglobin A1c of 6. 4. History of coronary artery disease status post coronary artery bypass grafting surgery x4 in 2005. PLAN: 1. Continue aspirin, FELTON inhibitor, Brilinta and metoprolol as he can tolerate it. 2. Continue sliding scale insulin. 3. Await the echocardiogram report. 4. His saline has been discontinued. 5. He is stable for transfer to the PCU. DYLAN
--- NOTE | 2017-02-21 15:18 | Cardiology Follow-Up ---
Subjective Subjective Date of Service: February 21, 2017. Pt evaluation today including: conversation w/ patient, physical exam, chart review, lab review, review of studies, review of inpatient medication list Additional Details: Feeling well. No chest pain overnight. No pain at right femoral access site. No other new complaints. Problem List Medical Problems: (1) ST elevation myocardial infarction (STEMI) of inferior wall Status: Acute Review of Systems Constitutional: No fever ENT: No hearing loss Respiratory: No cough Cardiac: No chest pain Abdomen: No pain Neurologic: No memory loss Heme: No abnormal bleeding/bruising Endo: No fatigue Skin: No rash Objective Vital Signs Last Vital Signs Documentation Date Time Temp Pulse Resp B/P Pulse Ox O2 Delivery O2 Flow Rate FiO2 02/21/17 12:00 Room Air 02/21/17 12:00 36.9 63 24 105/64 96 02/20/17 17:00 4.0 Physical Exam: General Appearance: no apparent distress ENT: hearing grossly normal Neck: no JVD Respiratory/Chest: chest non-tender, lungs clear Cardiovascular: regular rate, rhythm, no edema Abdomen: normal bowel sounds, non tender, soft Extremities: normal range of motion, non-tender, + pertinent finding (no ecchymosis, bruits at right femoral artery access site. ) Neurologic/Psychiatric: no motor/sensory deficits, alert Skin: normal color, warm/dry Assessment and Plan 1. Inferior STEMI/Acute SVG-OM occlusion -- s/p PCI with DESHAWN to mid SVG graft 2. Mild ischemic cardiomyopathy 3. Hypertension -- reasonably controlled 4. Mild-moderate -- unchanged on repeat echo Chest pain free. Troponin peaked. Hemodynamically stable. LV function unchanged on repeat echo. OK for transfer to telemetry today. Continue DAPT with ASA/plavix Continue current metoprolol, lisinopril and high-intensity statin. If stable, likely discharge to home tomorrow. Medications: Current Inpatient Medications Medications (Trade) Dose Ordered Sig/Basia Route Start Time Stop Time Status Last Admin Dose Admin Ondansetron HCl (Zofran Inj) 4 mg Q6H PRN IV 02/20/17 17:00 03/22/17 16:59 Aspirin (Ecotrin Tab) 81 mg QAM PO 02/21/17 09:00 03/23/17 08:59 02/21/17 08:31 81 MG Atorvastatin Calcium (Lipitor Tab) 80 mg QAM PO 02/21/17 09:00 03/23/17 08:59 02/21/17 08:31 80 MG Metoprolol Tartrate (Lopressor Tab) 25 mg Q12 PO 02/20/17 21:00 03/22/17 20:59 02/21/17 09:58 25 MG Acetaminophen (Tylenol Tab) 650 mg Q4H PRN PO 02/20/17 17:00 03/22/17 16:59 Lisinopril (Zestril Tab) 20 mg DAILY PO 02/21/17 09:00 03/23/17 08:59 02/21/17 09:43 20 MG Glucosamine Sulfate (Glucosamine Cap) 1,000 mg DAILY PO 02/21/17 09:00 03/23/17 08:59 02/21/17 08:32 1,000 MG Ticagrelor (Brilinta Cap) 90 mg BID PO 02/21/17 07:00 03/23/17 06:59 02/21/17 09:43 90 MG Insulin Aspart (novoLOG ASPART) SLIDING SCALE If C... ACHS SC 02/20/17 21:00 03/22/17 20:59 Glucose (Glucose 40% Gel) 15-30 GRAMS 15 GRAMS... UD PRN PO 02/20/17 18:30 03/22/17 18:29 Glucose (Glucose Chew Tab) 4-8 Tablets 4 Tabl... UD PRN PO 02/20/17 18:30 03/22/17 18:29 Dextrose (Dextrose 50% 50ML Syringe) 25-50ML OF 50% DW IV FOR... UD PRN IV 02/20/17 18:30 03/22/17 18:29 Glucagon (Glucagon Inj) 1 mg UD PRN SQ 02/20/17 18:30 03/22/17 18:29 Lab Results: 02/21/17 06:03 Red Blood Count 4.62, Mean Corpuscular Volume 97.0, Mean Corpuscular Hemoglobin 33.3, Mean Corpuscular Hemoglobin Concent 34.4, Mean Platelet Volume 11.0, Neutrophils (%) (Auto) 64.2, Lymphocytes (%) (Auto) 22.6, Monocytes (%) (Auto) 12.1, Eosinophils (%) (Auto) 0.8, Basophils (%) (Auto) 0.1, Neutrophils # (Auto ) 5.98, Lymphocytes # (Auto) 2.11, Monocytes # (Auto) 1.13, Eosinophils # (Auto ) 0.07, Basophils # (Auto) 0.01 02/21/17 06:03 Test 02/20/17 15:40 02/20/17 20:57 02/21/17 06:03 02/21/17 14:02 Kaolin Activated Coagulation Time 255 SECONDS (94-140) Bedside Glucose 123 mg/dl (70-99) White Blood Count 9.32 K/uL (4.8-10.8) Red Blood Count 4.62 M/uL (4.7-6.1) Hemoglobin 15.4 g/dL (14.0-18.0) Hematocrit 44.8 % (42-52) Mean Corpuscular Volume 97.0 fL (80-100) Mean Corpuscular Hemoglobin 33.3 pg (25-34) Mean Corpuscular Hemoglobin Concent 34.4 g/dl (32-36) Platelet Count 163 K/uL (130-400) Mean Platelet Volume 11.0 fL (7.4-10.4) Neutrophils (%) (Auto) 64.2 % Lymphocytes (%) (Auto) 22.6 % Monocytes (%) (Auto) 12.1 % Eosinophils (%) (Auto) 0.8 % Basophils (%) (Auto) 0.1 % Neutrophils # (Auto) 5.98 K/uL (1.4-6.5) Lymphocytes # (Auto) 2.11 K/uL (1.2-3.4) Monocytes # (Auto) 1.13 K/uL (0.11-0.59) Eosinophils # (Auto) 0.07 K/uL (0-0.5) Basophils # (Auto) 0.01 K/uL (0-0.2) RDW Standard Deviation 45.2 fL (36.4-46.3) RDW Coefficient of Variation 12.8 % (11.5-14.5) Immature Granulocyte % (Auto) 0.2 % Immature Granulocyte # (Auto) 0.02 K/uL (0.00-0.02) Anion Gap 7.0 mmol/L (3-11) Est Creatinine Clear Calc Drug Dose 82.5 ml/min Estimated GFR () 91.9 Estimated GFR (Non- 79.3 BUN/Creatinine Ratio 13.2 (10-20) Estimated Average Glucose 126 mg/dl Hemoglobin A1c 6.0 % (4.5-5.6) Calcium Level 8.0 mg/dl (8.5-10.1) Magnesium Level 2.1 mg/dl (1.8-2.4) Date/Time Source Procedure Growth Status 02/20/17 16:55 Nasal MRSA DNA Surveillance Screen - Final Specimen Negative for MRSA by DNA Probe Complete
[2017-02-22 03:52] VITALS: BP 128/74; PULSE 65; TEMP 36.9; O2SAT 97
[2017-02-22 06:55] LABS: BASO % 0.3 %; BASO ABS # 0.02 K/uL (0-0.2); COMPLETE YES; EOS % 3.3 %; HEMATOCRIT 48.2 % (42-52); IG% 0.3 %; LYMPH % 27.2 %; LYMPH ABS # 2.12 K/uL (1.2-3.4); MEAN CELL VOLUME 97.8 fL (80-100); MEAN CORPUSCULAR HEMOGLOBIN 33.7 pg (25-34); MEAN CORPUSCULAR HGB CONC 34.4 g/dl (32-36); MEAN PLATELET VOLUME 11.3 fL (7.4-10.4); MONO % 13.2 %; NEUT % 55.7 %; PLATELET COUNT 159 K/uL (130-400); RED BLOOD COUNT 4.93 M/uL (4.7-6.1)
[2017-02-22 07:28] LABS: BUN/CREATININE RATIO 14.8 (10-20); CALCIUM 8.3 mg/dl (8.5-10.1); POTASSIUM 4.2 mmol/L (3.5-5.1)
[2017-02-22 07:32] VITALS: BP 124/74; PULSE 63; TEMP 37; O2SAT 94
[2017-02-22] MEDS: INSULIN ASPART 100 UNITS/ML 3 ML PEN SC SCH (07:54)
[2017-02-22] MEDS ORDERED: PLV75 PO (08:14)
[2017-02-22] MEDS ORDERED: LPT40 PO (08:14)
[2017-02-22] MEDS ORDERED: METO-452 PO (08:14)
[2017-02-22] MEDS ORDERED: ASPEC81 PO (08:14)
--- NOTE | 2017-02-22 08:18 | Discharge Instructions ---
Discharge Instructions Date of Service February 22, 2017. Admission Reason for Admission: St Elevation Myocardial Infarction Stemi Discharge Discharge Diagnosis / Problem: Coronary artery disease post vein graft stenting Discharge Goals Goal(s): Decrease discomfort, Improve function Activity Recommendations Activity Limitations: per Instructions/Follow-up section Lifting Limitations: no more than 25 pounds Exercise/Sports Limitations: gradually increase as tolerated May Resume Sexual Activity: after one week Shower/Bathe: no limitations Driving or Machine Use: no limitations . Instructions / Follow-Up Instructions / Follow-Up Home Care: * Take your medications exactly as directed. Don't skip doses. * Remember that recovery after a heart attack takes time. Plan to rest for at lease 4-8 weeks while you recover. Then return to normal activity when your doctor says it's okay. * Ask your doctor about joining a heart rehabilitation program. * Tell your doctor if you are feeling depressed. Feelings of sadness are common after a heart attack, but it is important that you speak to someone if you are feeling overwhelmed by these feelings. * If you are having chest pain, call 911 for an ambulance. Do NOT drive yourself to the hospital. * Ask your family members to learn CPR. * Learn to take your own blood pressure and pulse. Keep a record of your results. Ask your doctor when you should seek emergency medical attention. He or she will tell you which blood pressure reading is dangerous. Lifestyle Changes: * Maintain a healthy weight. Get help to lose any extra pounds. * Cut back on salt. * Limit canned, dried, packaged, and fast foods. * Don't add salt to your food. * Season foods with herbs instead of salt when you cook. * Break the smoking habit. Enroll in a stop-smoking program to improve your chances of success. * Limit fatty foods. * Check your lipid levels regularly. (Your doctor can show you how to do this.) * Build up your activity according to your doctor's recommendation. * Ask your doctor when it's okay to resume sexual activity. * Tell your doctor about any erectile dysfunction (ED) medication you are taking. Some ED medications are not safe if you take certain heart medications. * Try to manage stress. ACTIVITY RECOMMENDATIONS: It is common to feel weak and fatigue for a few days. * Limit stair usage (2 or 3 trips a day only) for the next 2 days. * Do not lift anything heavier than 10 pounds for the next three days. * Do not engage in vigorous exercise or any sports for the next five days. * You may shower the day after your procedure, but do not immerse the area for three days. Cleanse the site gently with soap and water. SPECIAL CARE INSTRUCTIONS: * You may replace the pressure dressing or band-aid the morning after the procedure. * After your procedure, it is normal to have a small bruise or small lump at the site. Examine your site daily for any change in the bruise or lump, redness, swelling, drainage or numbness. Notify your doctor if any change. BLEEDING: * If there is a small amount of bleeding at the site, lie down and apply firm pressure with a clean cloth for ten minutes. When the bleeding stops, lie quietly keeping the procedure limb straight for six hours. Notify your doctor as soon as possible. * If the bleeding does not stop after ten minutes or if there is a large amount of bleeding or spurting, call 911 immediately. Continue to lie down and hold firm pressure until help arrives. SKIN IRRITATION: * You may experience some redness and/or swelling in the area where radiation was administered. If any skin irritation occurs, please contact your family physician. FOLLOW UP VISIT: Keep any scheduled doctor appointments. Current Hospital Diet Patient's current hospital diet: AHA Diet (Heart Healthy) Discharge Diet Recommended Diet: AHA Diet (Heart Healthy) Pending Studies Studies pending at discharge: no Laboratory Results Hemoglobin A1c Test 02/21/17 06:03 Range/Units Estimated Average Glucose 126 mg/dl Hemoglobin A1c 6.0 H 4.5-5.6 % Medical Emergencies . Who to Call and When: Medical Emergencies: If at any time you feel your situation is an emergency, please call 911 immediately. Call 911 immediately or go to your nearest Emergency Room if you experience any of the following: Warning Signs and Symptoms of a Heart Attack * Chest pain that is not relieved by medication * Shortness of breath . Non-Emergent Contact Non-Emergency issues call your: Primary Care Provider, [facility] . . "Provider Documentation" section prepared by Ryder Malave. . AMI Core Measures Reason no ASA as I/P: Treatment provided - N/A Reason no ASA at D/C: Treatment provided - N/A Reason no statin as I/P: Treatment provided - N/A Reason no statin at D/C: Treatment provided - N/A VTE Core Measure Inpt VTE Proph given/why not?: Other Anticoagulation
[2017-02-22] MEDS ORDERED: CLOPIDOGREL BISULFATE 300 MG TAB PO STA (08:19)
--- NOTE | 2017-02-22 09:11 | DISCHARGE SUMMARY ---
DATE OF DISCHARGE: 02/22/2017. ADMISSION PRINCIPAL DIAGNOSES: 1. Inferior ST elevation myocardial infarction. 2. Coronary artery disease status post 4-vessel coronary artery bypass graft. 3. Hypertension. 4. Mild to moderate aortic stenosis. PROCEDURES: Primary PCI to vein graft to OM with a single drug-eluting stent. HISTORY OF PRESENT ILLNESS: Mr. Costa is a very pleasant 71-year-old man with a history of coronary artery disease status post 4-vessel CABG in [address] [facility], hypertension previously followed by Dr. Crowell of cardiology who presented to acute care on the day of admission with chest tightness and general feeling unwell reminiscent of prior symptoms when he had his heart attack. At outpatient office he was noted to have inferior ST elevations and was taken emergently to the ED by EMS. Upon arrival, the patient had minimal chest discomfort but persistent ST elevations on presenting EKG inferiorly and ST depressions laterally. Decision was made to take the patient to the cardiac catheterization lab for urgent angiography. HOSPITAL COURSE: Cardiac catheterization showed severe quechan artery disease with occluded left main and occluded mid RCA. He had a patent vein graft to his PDA which back filled distal PLBs. Prior to back filling there was 90% ostial PDA stenosis. Other findings included a patent OLEARY to LAD and first diagonal and an acute occlusion of his vein graft to OM. PCI was undertaken to this vessel with aspiration thrombectomy and eventual stent placement to the mid graft with a 4.0 x 28 Xience postdilated to 4.5 mm. Post-procedure, the patient had MARIA D 3 flow. There was some question of possible residual thrombus in the dilated/aneurysmal part of the distal graft. As a result, the patient was kept on Integrilin overnight. He was admitted to the intensive care unit where he did well. He had no recurrent chest pain. His troponin peaked at 84. Followup echocardiogram showed mild LV dysfunction with moderate concentric LVH, EF was 40-45%. There was inferior basal hypokinesis and mid inferior hypokinesis largely unchanged from prior echo in 2014. He ws also noted to have mild to moderate aortic stenosis not significantly changed again from 2014. On hospital day 2, he was transferred out of the intensive care unit to telemetry, he had no further events, no recurrent chest pain. His right femoral artery access site was well healed. On hospital day 3, the patient was thought safe for discharge. He was discharged on aspirin and Plavix as well as high intensity statin, beta sharmaine and FELTON inhibitor. He will follow up with Dr. Crowell in 2-3 weeks. DISCHARGE MEDICATIONS: Aspirin 81 mg daily, atorvastatin 80 mg at bedtime, clopidogrel 75 mg daily, metoprolol succinate 50 mg daily, fish oil 1 tab daily, glucosamine 1000 mg p.o. daily, lisinopril 20 mg p.o. daily, multivitamin 1 tab daily. MTDD
[2017-02-22] MEDS: GLUCOSAMINE SULFATE 500 MG CAP PO SCH (09:33)
[2017-02-22] MEDS: ASPIRIN 81 MG ECTAB PO SCH (09:34)
[2017-02-22] MEDS: METOPROLOL TARTRATE 25 MG TAB PO SCH (09:34)
[2017-02-22] MEDS: ATORVASTATIN 40 MG TAB PO SCH (09:34)
[2017-02-22] MEDS: LISINOPRIL 20 MG TAB PO SCH (09:34)
== END 2017-02-22 11:30 | disposition home or self-care (01) | DRG 247 ==
LOC: ENRESERVTM → ENRESERVDT → EDBD 13:55 → C.EDB 13:56 → C.MSICU 17:02 → C.2T 02-21 18:33
PROVIDERS: ADMIT Internal Medicine Interventional Cardiology; ATTEND Internal Medicine Interventional Cardiology
PROC: 4A023N6 Measurement of Cardiac Sampling and Pressure, Right Heart, Percutaneous Approach (ICD-10-PCS; principal; 2017-02-20 14:40)
PROC: 02C03ZZ Extirpation of Matter from Coronary Artery, One Artery, Percutaneous Approach (ICD-10-PCS; principal; 2017-02-20 14:40)
PROC: 027034Z Dilation of Coronary Artery, One Artery with Drug-eluting Intraluminal Device, Percutaneous Approach (ICD-10-PCS; principal; 2017-02-20 14:40)
DX: I21.19 ST elevation (STEMI) myocardial infarction involving other coronary artery of inferior wall (principal); I25.10 Atherosclerotic heart disease of native coronary artery without angina pectoris; Z82.49 Family history of ischemic heart disease and other diseases of the circulatory system; Z83.3 Family history of diabetes mellitus; I10 Essential (primary) hypertension; E78.5 Hyperlipidemia, unspecified; Z95.1 Presence of aortocoronary bypass graft; I35.0 Nonrheumatic aortic (valve) stenosis; R00.1 Bradycardia, unspecified; R73.9 Hyperglycemia, unspecified; Z79.82 Long term (current) use of aspirin

== ENCOUNTER 2017-03-18 22:03 | Observation (INO) | payer BC, OTHER ==
[~2017-03-18] VITALS: Ht 177.8 cm; Wt 90.1 kg
[~2017-03-18 22:03] MED LIST changes: +ASPEC81 PO; +LPT40 PO; +METO-452 PO; -METO25TA31 PO; +PLV75 PO; -SIMV80TA5 OR
[2017-03-18] MEDS ORDERED: ACETAMINOPHEN 500 MG TAB PO STA (22:25)
[2017-03-18] MEDS ORDERED: SODIUM CHLORIDE 0.9% 1000ML 500 ML IV ONE (22:25)
[2017-03-18] MEDS ORDERED: CEFTRIAXONE SOD INJ 1 GM ADDVIAL IV STA (22:25)
--- NOTE | 2017-03-18 22:39 | EMERGENCY ROOM VISIT NOTE ---
History Report prepared by Maggie: Jolynn Sosa Under the Supervision of: Dr. Myles Molina M.D. First contact with patient: 22:19 Chief Complaint: SYNCOPE (NEAR SYNCOPE) Stated Complaint: ILLNESS Nursing Triage Summary: Syncopal episode per son. Patient states he has not been feeling well for two day and has not eaten anything and only drank three cans of aundrea cate in that time. Patient stated he did not pass out but son at bedside states patient passed out in his chair. History of Present Illness The patient is a 71 year old male who presents to the Emergency Room with complaints of a persistent illness that began two days ago. The patient reports over the last two days he has noticed general malaise and fatigue. He additionally notes a fever over the last two days of 102 degrees Fahrenheit. The patient states that he has taken Tylenol for his symptoms around 1600 today. He reports that over the last hour he developed rigors. The patient states that he has had a decrease in appetite and decrease in fluid intake, reporting 4 cans of aundrea-cate over the past two days. The patient's family reports that this evening he had a syncopal episode. They report that the patient said "I'm going down" and they lowered him to the ground. The family reports that the patient fully lost consciousness for a period of time. They note that the patient has a history of a vagal response. They report that the patient was diaphoretic. The patient states that on his way to the emergency department this evening he began vomiting. Today, he denies any shortness of breath, chest pain, dizziness, lightheadedness, abdominal pain, nausea, diarrhea , urinary symptoms, or recent sick contacts. The patient reports that he had a recent OH three weeks ago. He states that he noticed the top of his shoulders were sore after exertion and states that after evaluation at the walk-in clinic he was transferred to the emergency department via ALS. The patient states that he had 1 stent placed after his most recent OH. He states that 11 years ago he had a quadruple bypass, noting that the smallest bypass occluded and that is where the stent was placed. The patient reports a history of [place] Spotted Fever 20 years ago and Lyme Disease 5 years ago. He states that his symptoms today feel similar to symptoms he experienced with Lyme Disease. While in the emergency department his son noticed a tick to his left earlobe. Source of History: patient, family Onset: two days ago Position: other (global) Quality: other (illness ) Timing: other (persistent) Associated Symptoms: + LOC (syncope), + fevers, + chills (rigors), + diaphoresis, + vomiting, + fatigue (malaise), No chest pain, No SOB, No nausea, No abdominal pain, No diarrhea, No urinary symptoms Review of Systems See HPI for pertinent positives & negatives. A total of 10 systems reviewed and were otherwise negative. Past Medical & Surgical Medical Problems: (1) Heart disease (2) Hypertension Surgical Problems: (1) S/P CABG x 1 Family History Diabetes mellitus FH: heart disease Hypertension Social History Smoking Status: Never Smoker Alcohol Use: none Marital Status: Housing Status: lives with significant other Occupation Status: employed Current/Historical Medications Scheduled Aspirin (Aspirin EC Low Dose), 81 MG PO QAM Atorvastatin (Lipitor), 80 MG PO QPM Clopidogrel (Plavix), 75 MG PO QAM Glucosamine Sulfate (Glucosamine), 1,000 MG PO QAM Lisinopril (Zestril), 30 MG PO QAM Metoprolol Succinate (Toprol Xl), 50 MG PO DAILY Multivitamin (Multivitamin), 1 TAB PO DAILY [place]-3 Fatty Acids (Fish Oil), 1 CAP PO QAM Scheduled PRN Acetaminophen (Tylenol), 325 MG PO Q4 PRN for Pain Allergies Coded Allergies: Penicillins (Verified Allergy, Severe, ANAPHYLAXIS, 03/18/17) Physical Exam Vital Signs Date Time Temp Pulse Resp B/P (MAP) Pulse Ox O2 Delivery O2 Flow Rate FiO2 03/18/17 23:41 88 18 136/77 95 Room Air 03/18/17 22:19 92 Room Air 03/18/17 22:16 86 137/73 94 129/71 91 113/73 03/18/17 22:15 83 03/18/17 22:10 37.9 87 21 111/77 94 Room Air Physical Exam GENERAL: Patient is in no acute distress. HEENT: No acute trauma, normocephalic atraumatic, mucous membranes moist, no nasal congestion, no scleral icterus. NECK: No stridor, no adenopathy, no meningismus, trachea is midline. LUNGS: Clear to auscultation bilaterally, no wheeze, no rhonchi, breath sounds equal. HEART: 3/6 systolic murmur with a regular rate and rhythm. ABDOMEN: Soft, nontender, bowel sounds positive, no hernias, no peritonitis. EXTREMITIES: No cyanosis or edema, full range of motion of all the joints without pain or difficulty, no signs for acute trauma. NEUROLOGIC: Oriented x 3, no acute motor or sensory deficits, no focal weakness. SKIN: Small tick noted in the left pinna, no surrounding cellulitis or rash, removed with forceps without complication. Medical Decision & Procedures ER Provider Diagnostic Interpretation: Chest x-ray per my interpretation, pending radiology review: Hazy left base, but similar to previous x-rays, no obvious pneumonia, no CHF, no mediastinal widening. Laboratory Results 03/18/17 22:52 Red Blood Count 5.10, Mean Corpuscular Volume 96.5, Mean Corpuscular Hemoglobin 34.7, Mean Corpuscular Hemoglobin Concent 36.0, Mean Platelet Volume 11.9, Neutrophils (%) (Auto) 82.2, Lymphocytes (%) (Auto) 10.7, Monocytes (%) (Auto) 6.9, Eosinophils (%) (Auto) 0.0, Basophils (%) (Auto) 0.2, Neutrophils # (Auto) 3.83, Lymphocytes # (Auto) 0.50, Monocytes # (Auto) 0.32, Eosinophils # (Auto) 0.00, Basophils # (Auto) 0.01 03/18/17 22:52 Test 03/18/17 22:52 03/18/17 23:04 03/18/17 23:34 White Blood Count 4.66 K/uL (4.8-10.8) Red Blood Count 5.10 M/uL (4.7-6.1) Hemoglobin 17.7 g/dL (14.0-18.0) Hematocrit 49.2 % (42-52) Mean Corpuscular Volume 96.5 fL (80-100) Mean Corpuscular Hemoglobin 34.7 pg (25-34) Mean Corpuscular Hemoglobin Concent 36.0 g/dl (32-36) Platelet Count 116 K/uL (130-400) Mean Platelet Volume 11.9 fL (7.4-10.4) Neutrophils (%) (Auto) 82.2 % Lymphocytes (%) (Auto) 10.7 % Monocytes (%) (Auto) 6.9 % Eosinophils (%) (Auto) 0.0 % Basophils (%) (Auto) 0.2 % Neutrophils # (Auto) 3.83 K/uL (1.4-6.5) Lymphocytes # (Auto) 0.50 K/uL (1.2-3.4) Monocytes # (Auto) 0.32 K/uL (0.11-0.59) Eosinophils # (Auto) 0.00 K/uL (0-0.5) Basophils # (Auto) 0.01 K/uL (0-0.2) RDW Standard Deviation 45.0 fL (36.4-46.3) RDW Coefficient of Variation 12.7 % (11.5-14.5) Immature Granulocyte % (Auto) 0.0 % Immature Granulocyte # (Auto) 0.00 K/uL (0.00-0.02) Prothrombin Time 12.4 SECONDS (9.0-12.0) Prothromb Time International Ratio 1.2 (0.9-1.1) Activated Partial Thromboplast Time 28.0 SECONDS (21.0-31.0) Partial Thromboplastin Ratio 1.1 Anion Gap 14.0 mmol/L (3-11) Est Creatinine Clear Calc Drug Dose 64.5 ml/min Estimated GFR () 71.1 Estimated GFR (Non- 61.3 BUN/Creatinine Ratio 14.6 (10-20) Calcium Level 8.5 mg/dl (8.5-10.1) Total Bilirubin 1.3 mg/dl (0.2-1) Aspartate Amino Transf (AST/SGOT) 48 U/L (15-37) Alanine Aminotransferase (ALT/SGPT) 49 U/L (12-78) Alkaline Phosphatase 48 U/L (45-117) Troponin I 0.127 ng/ml (0-0.045) Total Protein 7.3 gm/dl (6.4-8.2) Albumin 3.5 gm/dl (3.4-5.0) Globulin 3.8 gm/dl (2.5-4.0) Albumin/Globulin Ratio 0.9 (0.9-2) Chemistry Specimen Hemolysis Lyme Disease IgG Antibody POS (NEG) Bedside Lactic Acid Venous 1.62 mmol/L (0.90-1.70) Urine Color DK YELLOW Urine Appearance CLEAR (CLEAR) Urine pH 5.0 (4.5-7.5) Urine Specific [place] 1.027 (1.000-1.030) Urine Protein 1+ (NEG) Urine Glucose (UA) NEG (NEG) Urine Ketones 3+ (NEG) Urine Occult Blood 1+ (NEG) Urine Nitrite NEG (NEG) Urine Bilirubin NEG (NEG) Urine Urobilinogen NEG (NEG) Urine Leukocyte Esterase NEG (NEG) Urine WBC (Auto) 1-5 /hpf (0-5) Urine RBC (Auto) 0-4 /hpf (0-4) Urine Hyaline Casts (Auto) 1-5 /lpf (0-5) Urine Epithelial Cells (Auto) 20-30 /lpf (0-5) Urine Bacteria (Auto) NEG (NEG) Urine Pathogenic Casts /lpf (0) Urine Mucus PRESENT (NONE PRSENT) Laboratory results reviewed by me. Medications Administered Medications (Trade) Dose Ordered Sig/Basia Route Start Time Stop Time Status Last Admin Dose Admin Sodium Chloride 500 ml @ 999 mls/hr Q31M ONCE IV 03/18/17 22:25 03/18/17 22:55 DC 03/18/17 23:20 999 MLS/HR Acetaminophen (Tylenol Tab) 1,000 mg NOW STAT PO 03/18/17 22:25 03/18/17 22:30 DC 03/18/17 23:20 1,000 MG Ceftriaxone Sodium (Rocephin Inj) 1 gm NOW STAT IV 03/18/17 22:25 03/18/17 22:30 DC 03/18/17 23:20 1 GM ECG Indication: syncope Rate (beats per minute): 81 Rhythm: sinus rhythm Findings: RBBB (incomplete), other (old inferior infarct, nonspecific T wave change) Comparison ECG Date: 02/20/17 Change: EKG Change: When compared to EKG done no 02/20/17, Incomplete right bundle block is new, otherwise EKG has improved from previous. ED Course 2219: The patient was evaluated in room B5. A complete history and physical exam was performed. 2224: Ordered Rocephin Inj 1 gm IV, Tylenol Tab 1000 mg PO, Sodium Chloride 500 ml @ 999 mls/hr IV. 0020: I did speak with the on-call hospitalist, the patient will be brought in under the [facility] medical group. Medical Decision The patient is a 71 year old male who presents to the ED with complaints of an illness. Differential diagnoses considered include lyme disease, viral illness , pneumonia, bacteremia, sepsis, dehydration UTI, dysrhythmia, OH. There is no leukocytosis or concerning the anemia. No significant electrolyte abnormality or kidney failure. There was no hepatitis. EKG shows a sinus rhythm with some chronic findings, no acute ischemic changes noted. Cardiac troponin was somewhat elevated although, the value is far less than the value recorded a few weeks ago with his OH. Chest x-ray shows some cardiomegaly, there is apparent chronic congestion in the left lower lung. There was no obvious pneumonia, no CHF or pneumothorax. Blood cultures are pending. Urinalysis does not show infection but dehydration was suggested. The patient was orthostatic by our testing, his blood pressure dropped with standing. Lyme disease testing is presently pending. Lactic acid level is not elevated making severe sepsis less likely. The patient received IV saline, oral Tylenol and IV ceftriaxone, he is resting comfortably. Given the syncope, given the troponin elevation, given his orthostasis and dehydration, admission/observation is warranted. The cause for the fever is unclear, certainly, he may have Lyme disease as he did have a tick on the left earlobe that was removed by me during his ER visit. I did speak to the patient and to case management. The on-call hospitalist was consulted. Medication Reconciliation: I attest that I have personally reviewed the patient' s current medication list. Blood Pressure Screening: Patient was found to have normal blood pressure on screening and does not require follow-up. Impression Primary Impression: Syncope Additional Impressions: Orthostasis Fever Elevated troponin Scribe Attestation The scribe's documentation has been prepared under my direction and personally reviewed by me in its entirety. I confirm that the note above accurately reflects all work, treatment, procedures, and medical decision making performed by me. Departure Information Dispostion Being Evaluated By Hospitalist Referrals Ora Cabello M.D. (PCP) Patient Instructions My [facility] Problem Qualifiers
[2017-03-18] MEDS ORDERED: ATOR-26 PO (22:54)
[2017-03-18] MEDS ORDERED: CLOP1TAB15 PO (22:54)
[2017-03-18] MEDS ORDERED: OMEG1CAP81 PO (22:54)
[2017-03-18] MEDS ORDERED: LSNP/30 PO (22:54)
[2017-03-18] MEDS ORDERED: ACET-1311 PO (22:54)
[2017-03-18 23:15] LABS: BASO % 0.2 %; BASO ABS # 0.01 K/uL (0-0.2); COMPLETE YES; HEMATOCRIT 49.2 % (42-52); LYMPH % 10.7 %; MEAN CELL VOLUME 96.5 fL (80-100); MEAN CORPUSCULAR HEMOGLOBIN 34.7 pg (25-34); MEAN PLATELET VOLUME 11.9 fL (7.4-10.4); MONO % 6.9 %; NEUT % 82.2 %; PLATELET COUNT 116 K/uL (130-400); WHITE BLOOD COUNT 4.66 K/uL (4.8-10.8)
[2017-03-18 23:31] LABS: INR 1.2 (0.9-1.1); PARTIAL THROMBOPLASTIN RATIO 1.1; PROTHROMBIN TIME (PATIENT) 12.4 SECONDS (9.0-12.0)
[2017-03-18 23:49] LABS: ALB/GLOB RATIO 0.9 (0.9-2); BUN/CREATININE RATIO 14.6 (10-20); CALCIUM 8.5 mg/dl (8.5-10.1); CREATININE 1.2 mg/dl (0.60-1.40); POTASSIUM 4.1 mmol/L (3.5-5.1)
[2017-03-18 23:52] LABS: URINE APPEARANCE CLEAR (CLEAR); URINE COLOR DK YELLOW; URINE EPITHELIAL CELL AUTO 20-30 /lpf (0-5); URINE NITRITE NEG (NEG); URINE SPECIFIC GRAVITY 1.027 (1.000-1.030); UROBILINOGEN NEG (NEG); ZZUR CULT IF INDIC CLEAN CATCH NO
[2017-03-19] LABS: MANUAL MICROSCOPIC REQUIRED? NO; REVIEW REQ? YES; URINE BILIRUBIN NEG (NEG)
[2017-03-19 00:01] LABS: URINE MUCUS PRESENT (NONE PRSENT)
[2017-03-19 00:16] LABS: LYME DISEASE AB IGG POS (NEG); LYME DISEASE AB IGM POS (NEG)
[2017-03-19] MEDS ORDERED: POLYETHYLENE (MIRALAX) 17 GM PACK PO PRN (01:15)
[2017-03-19] MEDS ORDERED: ACETAMINOPHEN 325 MG TAB PO PRN (01:15)
[2017-03-19] MEDS ORDERED: ONDANSETRON INJ 2 MG/ML 2 ML VIAL IV PRN (01:15)
--- NOTE | 2017-03-19 01:58 | History and Physical ---
History & Physical Date & Time of Service: Mar 19, 2017 at 01:58 Chief Complaint: Illness Primary Care Physician: Ora Cabello M.D. History of Present Illness Source: patient, spouse 71-year-old male with past medical history of hypertension, coronary artery disease status post cardiac catheterization 3 weeks ago presented to the ER with complaints of fever/chills, fatigue which started about 2 days ago. He recorded a temperature of 102 Fahrenheit. He also complains of sore joints diffusely in his knees, elbows and hip, complains of decreased by mouth intake and had only been consuming aundrea cate over the last 2 days. This evening he had a syncopal episode and was unconscious for a brief period of time. Denies any chest pain, shortness of breath, palpitations. Denies any dysuria, frequency, hematuria. Denies any coughing. Denies any headache, nausea, vomiting, diarrhea. Denies any recent tick bites or rashes but has a history of Lyme disease and [place] spotted fever. While in the ER, he had a tick removed from his left earlobe. Past Medical/Surgical History Medical Problems: (1) Heart disease Status: Chronic (2) Hypertension Status: Chronic Surgical Problems: (1) S/P CABG x 1 Status: Resolved Family History Diabetes mellitus FH: heart disease Hypertension Social History Smoking Status: Never Smoker Marital Status: Occupational Status: employed Multi-Drug Resistant Organisms History of MDRO: No Allergies Coded Allergies: Penicillins (Verified Allergy, Severe, ANAPHYLAXIS, 03/18/17) Home Medications Scheduled Aspirin (Aspirin EC Low Dose), 81 MG PO QAM Atorvastatin (Lipitor), 80 MG PO QPM Clopidogrel (Plavix), 75 MG PO QAM Doxycycline Monohydrate (Monodox), 100 MG PO BID Glucosamine Sulfate (Glucosamine), 1,000 MG PO QAM Lisinopril (Zestril), 30 MG PO QAM Metoprolol Succinate (Toprol Xl), 50 MG PO DAILY Multivitamin (Multivitamin), 1 TAB PO DAILY [place]-3 Fatty Acids (Fish Oil), 1 CAP PO QAM Scheduled PRN Acetaminophen (Tylenol), 325 MG PO Q4 PRN for Pain Review of Systems Constitutional: + fever, + chills, + sweats, + weakness Eyes: No worsening of vision ENT: No hearing loss Respiratory: No cough, No sputum, No shortness of breath Cardiovascular: + problem reported (syncopal episode), No chest pain, No orthopnea Musculoskeletal: + joint pain (diffuse) Genitourinary - Male: No hematuria, No dysuria Neurologic: No memory loss, No paralysis Psychiatric: No depression symptoms Endocrine: No fatigue Hematologic / Lymphatic: No abnormal bleeding/bruising Integumentary: No rash Allergic / Immunologic: No environmental allergies Physical Exam Vital Signs Date Time Temp Pulse Resp B/P (MAP) Pulse Ox O2 Delivery O2 Flow Rate FiO2 03/19/17 01:52 37.2 78 18 122/62 97 03/19/17 01:18 37.2 78 18 122/62 97 Room Air 03/18/17 23:41 88 18 136/77 95 Room Air 03/18/17 22:19 92 Room Air 03/18/17 22:16 86 137/73 94 129/71 91 113/73 03/18/17 22:15 83 03/18/17 22:10 37.9 87 21 111/77 94 Room Air General Appearance: WD/WN, no apparent distress Eyes: normal inspection ENT: normal ENT inspection, hearing grossly normal Neck: supple Respiratory/Chest: chest non-tender, lungs clear, normal breath sounds, no respiratory distress, no accessory muscle use Cardiovascular: regular rate, rhythm Abdomen/GI: normal bowel sounds, non tender, soft Extremities/Musculoskelatal: no pedal edema, normal range of motion Neurologic/Psych: alert, normal mood/affect, oriented x 3 Skin: normal color Diagnostics Laboratory Results Results Past 24 Hours Test 03/18/17 22:52 03/18/17 23:04 03/18/17 23:34 Range/Units White Blood Count 4.66 4.8-10.8 K/uL Red Blood Count 5.10 4.7-6.1 M/uL Hemoglobin 17.7 14.0-18.0 g/dL Hematocrit 49.2 42-52 % Mean Corpuscular Volume 96.5 80-100 fL Mean Corpuscular Hemoglobin 34.7 25-34 pg Mean Corpuscular Hemoglobin Concent 36.0 32-36 g/dl Platelet Count 116 130-400 K/uL Mean Platelet Volume 11.9 7.4-10.4 fL Neutrophils (%) (Auto) 82.2 % Lymphocytes (%) (Auto) 10.7 % Monocytes (%) (Auto) 6.9 % Eosinophils (%) (Auto) 0.0 % Basophils (%) (Auto) 0.2 % Neutrophils # (Auto) 3.83 1.4-6.5 K/uL Lymphocytes # (Auto) 0.50 1.2-3.4 K/uL Monocytes # (Auto) 0.32 0.11-0.59 K/uL Eosinophils # (Auto) 0.00 0-0.5 K/uL Basophils # (Auto) 0.01 0-0.2 K/uL RDW Standard Deviation 45.0 36.4-46.3 fL RDW Coefficient of Variation 12.7 11.5-14.5 % Immature Granulocyte % (Auto) 0.0 % Immature Granulocyte # (Auto) 0.00 0.00-0.02 K/uL Nucleated RBC Absolute Count (auto) 0.00 0-0 K/uL Nucleated Red Blood Cells % 0.0 % Prothrombin Time 12.4 9.0-12.0 SECONDS Prothromb Time International Ratio 1.2 0.9-1.1 Activated Partial Thromboplast Time 28.0 21.0-31.0 SECONDS Partial Thromboplastin Ratio 1.1 Sodium Level 138 136-145 mmol/L Potassium Level 4.1 3.5-5.1 mmol/L Chloride Level 102 98-107 mmol/L Carbon Dioxide Level 22 21-32 mmol/L Anion Gap 14.0 3-11 mmol/L Blood Urea Nitrogen 18 7-18 mg/dl Creatinine 1.20 0.60-1.40 mg/dl Est Creatinine Clear Calc Drug Dose 64.5 ml/min Estimated GFR () 71.1 Estimated GFR (Non- 61.3 BUN/Creatinine Ratio 14.6 10-20 Random Glucose 147 70-99 mg/dl Calcium Level 8.5 8.5-10.1 mg/dl Total Bilirubin 1.3 0.2-1 mg/dl Aspartate Amino Transf (AST/SGOT) 48 15-37 U/L Alanine Aminotransferase (ALT/SGPT) 49 12-78 U/L Alkaline Phosphatase 48 45-117 U/L Troponin I 0.127 0-0.045 ng/ml Total Protein 7.3 6.4-8.2 gm/dl Albumin 3.5 3.4-5.0 gm/dl Globulin 3.8 2.5-4.0 gm/dl Albumin/Globulin Ratio 0.9 0.9-2 Chemistry Specimen Hemolysis Lyme Disease IgG Antibody POS NEG Lyme Disease IgM Antibody POS NEG Bedside Lactic Acid Venous 1.62 0.90-1.70 mmol/L Urine Color DK YELLOW Urine Appearance CLEAR CLEAR Urine pH 5.0 4.5-7.5 Urine Specific Stacy 1.027 1.000-1.030 Urine Protein 1+ NEG Urine Glucose (UA) NEG NEG Urine Ketones 3+ NEG Urine Occult Blood 1+ NEG Urine Nitrite NEG NEG Urine Bilirubin NEG NEG Urine Urobilinogen NEG NEG Urine Leukocyte Esterase NEG NEG Urine WBC (Auto) 1-5 0-5 /hpf Urine RBC (Auto) 0-4 0-4 /hpf Urine Hyaline Casts (Auto) 1-5 0-5 /lpf Urine Epithelial Cells (Auto) 20-30 0-5 /lpf Urine Bacteria (Auto) NEG NEG Urine Pathogenic Casts 0 /lpf Urine Mucus PRESENT NONE PRSENT Microbiology Results 03/18/17 Blood Culture, Received Pending 03/18/17 Blood Culture, Marlin Batch Pending EKG EKG Change: When compared to EKG done no 02/20/17, Incomplete right bundle block is new, otherwise EKG has improved from previous. Impression Assessment and Plan 71-year-old male with past medical history of hypertension, coronary artery disease status post cardiac catheterization 3 weeks ago presented to the ER with complaints of fever/chills, fatigue which started about 2 days ago. Also had a syncopal episode this evening and decreased by mouth intake for the last 2 days. Fever: - Chest x-ray unremarkable - UA positive for ketones but otherwise negative - Lyme serology positive for IgM and IgG, Western blot for confirmation pending - Serology for ehrlichiosis sent - Blood cultures pending - Tylenol when necessary for fever - Continue Rocephin daily Thrombocytopenia: Platelets at 116, baseline more than 150 - Peripheral smear pending [place] artery disease: - Continue aspirin, Plavix, Zestril, Toprol, statin -Initial troponin 0.127 , troponins trended every 8 hours Full code DVT prophylaxis: SCDs Disposition: Admitted to telemetry Level of Care Telemetry Resuscitation Status FULL RESUSCITATION VTE Prophylaxis VTE Risk Assessment Done? Y/N: Yes Risk Level: Moderate Given or contraindicated: SCD's Resident Tracking Resident Involvement: Resident Care Provided Care Provided: [facility] Medicine Assessment and Plan Attending Addendum: I have physically seen and examined this patient, have directed their medical care, have supervised the medical residents activities, and agree with the H&P as noted above, with the following changes: NONE
[2017-03-19] MEDS ORDERED: IV FLUIDS COMPLETED PRN (02:30)
[2017-03-19 02:38] VITALS: BP 113/65; PULSE 71; TEMP 36.9; O2SAT 92; Ht 177.8 cm; Wt 90.1 kg
[2017-03-19 04:00] VITALS: O2SAT 97
--- NOTE | 2017-03-19 06:42 | DIAGNOSTIC IMAGING REPORT ---
CHEST ONE VIEW PORTABLE CLINICAL HISTORY: Sepsis COMPARISON STUDY: Chest radiograph February 20, 2017. FINDINGS: There are median sternotomy wires and clips from bypass grafting. There is no pneumothorax. There is no pleural effusion. Apparent hazy left basilar opacity is probably artifactual. Moderate cardiomegaly is unchanged. There is no evidence of pulmonary edema. IMPRESSION: No acute cardiopulmonary findings. Apparent hazy left basilar opacity is likely artifactual or reflects atelectasis. Electronically signed by: Anthony Capone M.D. 03/19/2017 6:40 AM Dictated Date/Time: 03/19/2017 6:39 AM
[2017-03-19] MEDS ORDERED: SODIUM CHLORIDE 0.9% 1000ML 1,000 ML IV SCH (06:45)
[2017-03-19 07:57] VITALS: BP 126/70; PULSE 62; TEMP 36.7; O2SAT 95
[2017-03-19 08:00] VITALS: O2SAT 95
[2017-03-19] MEDS ORDERED: LISINOPRIL 10 MG TAB PO SCH (09:00)
[2017-03-19] MEDS ORDERED: ASPIRIN 81 MG ECTAB PO SCH (09:00)
[2017-03-19] MEDS ORDERED: CLOPIDOGREL BISULFATE 75 MG TAB PO SCH (09:00)
[2017-03-19] MEDS ORDERED: METOPROLOL SUCC 50MG EXT REL TAB PO SCH (09:00)
[2017-03-19] MEDS ORDERED: DOXY100C76 PO (10:08)
--- NOTE | 2017-03-19 10:09 | Discharge Instructions ---
Discharge Instructions Date of Service Mar 19, 2017. Admission Reason for Admission: Fever,Orthostatic Hyoptension Discharge Discharge Diagnosis / Problem: Tick borne illness Discharge Goals Goal(s): Improve disease control Activity Recommendations Activity Limitations: as noted below Lifting Limitations: none Exercise/Sports Limitations: none May Resume Sexual Activity: when tolerated Shower/Bathe: no limitations Driving or Machine Use: no limitations Check yourself daily for tick bites - this will be the best prevention from this occurring again Take lots of water with the doxycycline - DO NOT stop the course until the 2 weeks is over If you notice your symptoms return, please see your PCP right away. . Instructions / Follow-Up Instructions / Follow-Up Follow up with PCP within 1 - 2 days. Current Hospital Diet Patient's current hospital diet: AHA Diet (Heart Healthy) Discharge Diet Recommended Diet: AHA Diet (Heart Healthy) Pending Studies Studies pending at discharge: no Laboratory Results Hemoglobin A1c Test 02/21/17 06:03 Range/Units Estimated Average Glucose 126 mg/dl Hemoglobin A1c 6.0 H 4.5-5.6 % Medical Emergencies . Who to Call and When: Medical Emergencies: If at any time you feel your situation is an emergency, please call 911 immediately. . Non-Emergent Contact Non-Emergency issues call your: Primary Care Provider . . "Provider Documentation" section prepared by Nadege Craft. . VTE Core Measure Inpt VTE Proph given/why not?: SCD's
--- NOTE | 2017-03-19 10:10 | Discharge Summary ---
Discharge Summary Date of Service Mar 19, 2017. (Nadege Craft MD) Discharge Summary Admission Date: Mar 19, 2017 at 01:19 Discharge Date: Mar 19, 2017 Discharge Disposition: Home Principal Diagnosis: Tick-borne illness Procedures: CXR FINDINGS: There are median sternotomy wires and clips from bypass grafting. There is no pneumothorax. There is no pleural effusion. Apparent hazy left basilar opacity is probably artifactual. Moderate cardiomegaly is unchanged. There is no evidence of pulmonary edema. IMPRESSION: No acute cardiopulmonary findings. Apparent hazy left basilar opacity is likely artifactual or reflects atelectasis. (Nadege Craft MD) Medication Reconciliation New Medications: Doxycycline Monohydrate (Monodox) 100 Mg Cap 100 MG PO BID for 14 Days, #28 CAP Take with large glass of water. Use sun protection while on doxycycline. Continued Medications: Acetaminophen (Tylenol) 325 Mg Tab 325 MG PO Q4 PRN for Pain, TAB Aspirin (Aspirin EC Low Dose) 81 Mg Ectab 81 MG PO QAM for 30 Days, #30 TAB 6 Refills Atorvastatin (Lipitor) 80 Mg Tab 80 MG PO QPM, TAB Clopidogrel (Plavix) 75 Mg Tab 75 MG PO QAM, TAB Glucosamine Sulfate (Glucosamine) 1,000 Mg Tab 1000 MG PO QAM Lisinopril (Zestril) 30 Mg Tab 30 MG PO QAM, TAB Metoprolol Succinate (Toprol Xl) 50 Mg Tab 50 MG PO DAILY, #30 TAB 6 Refills Multivitamin (Multivitamin) Tab 1 TAB PO DAILY, 0 Refills [place]-3 Fatty Acids (Fish Oil) 1 Cap Cap 1 CAP PO QAM Discharge Exam Review of Systems: Constitutional: No fever, No chills, No sweats, No weight loss Eyes: No worsening of vision ENT: No hearing loss Respiratory: No cough, No sputum, No wheezing, No shortness of breath Cardiovascular: No chest pain Abdomen: No pain, No nausea, No vomiting Musculoskeletal: No joint pain Genitourinary - Male: No hematuria, No dysuria Neurologic: No memory loss Psychiatric: No depression symptoms Endocrine: No fatigue Hematologic / Lymphatic: No abnormal bleeding/bruising Integumentary: No rash Physical Exam: General Appearance: WD/WN, no apparent distress Eyes: normal inspection, PERRL ENT: hearing grossly normal Neck: supple, no JVD Respiratory/Chest: chest non-tender, lungs clear, normal breath sounds, no respiratory distress Cardiovascular: regular rate, rhythm, no murmur, normal peripheral pulses Abdomen / GI: normal bowel sounds, non tender, soft Extremities: normal inspection, no pedal edema Neurologic/Psychiatric: alert, normal mood/affect, normal reflexes, oriented x 3 Skin: no rash (Nadege Craft MD) Hospital Course HPI: 71-year-old male with past medical history of hypertension, coronary artery disease status post cardiac catheterization 3 weeks ago presented to the ER with complaints of fever/chills, fatigue which started about 2 days ago. He recorded a temperature of 102 Fahrenheit. He also complains of sore joints diffusely in his knees, elbows and hip, complains of decreased by mouth intake and had only been consuming aundrea cate over the last 2 days. This evening he had a syncopal episode and was unconscious for a brief period of time. Denies any chest pain, shortness of breath, palpitations. Denies any dysuria, frequency, hematuria. Denies any coughing. Denies any headache, nausea, vomiting, diarrhea. Denies any recent tick bites or rashes but has a history of Lyme disease and [place] spotted fever. While in the ER, he had a tick removed from his left earlobe. ASSESSMENT: 71-year-old male with past medical history of hypertension, coronary artery disease status post cardiac catheterization 3 weeks ago presented to the ER with complaints of fever/chills, fatigue which started about 2 days ago. Also had a syncopal episode this evening and decreased by mouth intake for the last 2 days. HOSPITAL COURSE: - Has a positive Lyme IgG and IgM, Western Blot pending - Secretary remarkably better after dose of Rocephin Tick-borne illness Will start pt on doxycycline 100mg BID for 2 weeks Discussed extensively using GI protection and sunscreen Follow up Western Blot in clinic Fever Afebrile since dose of Rocephin Thrombocytopenia: Platelets at 116, baseline more than 150 - Peripheral smear pending - Could recheck as Outpatient Coronary artery disease: - Continue aspirin, Plavix, Zestril, Toprol, statin - Initial troponin 0.127 , then was 0.116 Full code DVT prophylaxis: SCDs Disposition: Admitted to telemetry Total Time Spent: Greater than 30 minutes This includes examination of the patient, discharge planning, medication reconciliation, and communication with other providers. (Nadege Craft MD) Resident Physician Supervision Note: I interviewed and examined the patient. Discussed with Dr. Craft and agree with findings and plan as documented in the note. Any exceptions or clarifications are listed here: None Documented By: Khanh Griffin feeling MUCH better. wants to go home. discussed high prob tick borne, discussed doxy as treatment of choice, discussed risks/sun protection/etc. discussed daily tick checks to cut down on probability of future events, and low index of suspicion given severely endemic area to suspect tick borne if febrile illness in spring/summer. ROS otherwise negative except for as above vitals noted nad breathing unlabored no pallor or icterus febrile illness - almost certainly tick borne, improving, safe/stable for home 2wks doxy, sun protection, tick checks, outpt f/u Total Time Spent: Less than 30 minutes (Khanh Griffin, D.O.) Discharge Instructions Please refer to the electronic Patient Visit Report (Discharge Instructions) for additional information. (Nadege Craft MD) Follow-Up Within 1-2 weeks (Nadeeg Craft MD) Additional Copies To Ora Cabello M.D. Resident Tracking Resident Involvement: Resident Care Provided Care Provided: Adult Hospital Medicine (Nadege Craft MD)
[2017-03-19 11:03] VITALS: BP 126/70; PULSE 62; O2SAT 95
[2017-03-19 12:39] VITALS: TEMP 37.5
[2017-03-19] MEDS ORDERED: ATORVASTATIN 40 MG TAB PO SCH (21:00)
[2017-03-19] MEDS ORDERED: CEFTRIAXONE SOD INJ 1 GM in DEXTROSE 5% ADD-VANTAGE 50ML 50 ML IV SCH (23:00)
[2017-03-22 03:29] LABS: 18KDIGG BAND REACTIVE (NONREACTIVE); 23KDIGG BAND NONREACTIVE (NONREACTIVE); 23KDIGM BAND REACTIVE (NONREACTIVE); 28KDIGG BAND REACTIVE (NONREACTIVE); 30KDIGG BAND NONREACTIVE (NONREACTIVE); 39KDIGG BAND REACTIVE (NONREACTIVE); 39KDIGM BAND NONREACTIVE (NONREACTIVE); 41KDIGG BAND REACTIVE (NONREACTIVE); 41KDIGM BAND REACTIVE (NONREACTIVE); 45KDIGG BAND REACTIVE (NONREACTIVE); 58KDIGG BAND REACTIVE (NONREACTIVE); 66KDIGG BAND REACTIVE (NONREACTIVE); 93KDIGG BAND NONREACTIVE (NONREACTIVE)
[2017-03-25 00:40] LABS: EHRLICHIA CHAFF IGG AB <1:64 (<1:64); EHRLICHIA CHAFF IGM AB <1:20 (<1:20)
== END 2017-03-19 13:07 | disposition home or self-care (01) ==
LOC: EDBD 22:03 → C.EDB 22:05 → C.2T 03-19 01:19 → ENRESERV 03-19 01:41
PROVIDERS: ADMIT Family Medicine; ATTEND Hospitalist
DX: A93.8 Other specified arthropod-borne viral fevers (principal); R55 Syncope and collapse; I95.1 Orthostatic hypotension; I10 Essential (primary) hypertension; I25.10 Atherosclerotic heart disease of native coronary artery without angina pectoris; Z95.1 Presence of aortocoronary bypass graft; Z83.3 Family history of diabetes mellitus; Z82.49 Family history of ischemic heart disease and other diseases of the circulatory system; Z79.82 Long term (current) use of aspirin; Z79.02 Long term (current) use of antithrombotics/antiplatelets; Z79.899 Other long term (current) drug therapy; R50.9 Fever, unspecified; D69.6 Thrombocytopenia, unspecified

== ENCOUNTER 2019-10-25 11:25 | Observation (INO) ==
--- OUTSIDE RECORDS SUMMARY | 2019-10-25 11:28 | External Medical Summary | Continuity of Care Document ---
:1945 Author Name Ad Jackson Address Unavailable Unavailable , Care Team Providers Name Role Phone Ananda Jackson Unavailable [email or web address], [email or web address] Unavailable Unavailable Problems Active medical history not documented Allergies and Adverse Reactions Allergy history not documented Medications Medications not documented Procedures Procedures not documented Immunizations Immunizations not documented Plan of Treatment Planned Observations Planned Goals not documented Results No Known Results Results not documented
--- OUTSIDE RECORDS SUMMARY | 2019-10-25 11:29 | External Medical Summary | Continuity of Care Document ---
:1945 Author Name Ad Jackson Address Unavailable Unavailable , Care Team Providers Name Role Phone Ananda Jackson Unavailable [email or web address] [email or web address], [email or web address] Unavailable Unavailable Problems Active medical history not documented Allergies and Adverse Reactions Allergy history not documented Medications Medications not documented Procedures Procedures not documented Immunizations Immunizations not documented Plan of Treatment Planned Observations Planned Goals not documented Results No Known Results Results not documented
--- NOTE | 2019-10-25 12:37 | Emergency Department Note ---
Entered by Hallie Salinas acting as a scribe for History of Present Illness General Chief complaint: Neuro Symptoms/Deficit Stated complaint: CANT WALK NORMAL Time Seen by Provider: 10/25/19 12:11 Source: patient Mode of arrival: ambulatory Limitations: no limitations History of Present Illness Provider complaint: Ambulatory dysfunction Onset (ago): day(s) 2 Location: upper extremity (bilteral legs) Pain Consistency: + constant Quality: + other (ambulatory dysfunction) Associated symptoms: + weakness and + other (Additional symptoms: dizziness (now resolved). Denies: vision problems) Treatments prior to arrival: none The patient is a 74 year old male with a history of a heart murmur, hypertension, Lyme disease, STEMI, subdural hematoma, multiple concussions, heart artery stent, and CABG x 1 who presents to the Emergency Room with complaints of constant ambulatory dysfunction starting 2 days ago. The patient reports that he walked outside 2 days ago and looked up at the top of the tree for a few minutes to determine if it was or not. He states that he then tilted his head down and could not seem to walk straight. He also complained of dizziness and weakness at this time. 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 When he got home, his family reports that they got the patient seated in a chair and assisted him to the recliner 10 minutes later. They state that the patient stayed in the recliner for most of the day and required assistance to ambulate to the bathroom. They note that the patient's dizziness resolved the next morning but explains that he was still unable to control his feet. The patient denies any vision problems. Per family, the patient was evaluated by Mariaa COFFMAN, [facility] at the [facility] office earlier today and was subsequently referred to the ED. The patient recalls that he had cut wood all day 3 and 4 days ago and likely became dehydrated from the physical work. He adds that he forgot to take his daily doses of 81 mg aspirin and 80 mg Lipitor for 2 consecutive nights. He states that his other regular medications include Met oprolol and Lisinopril. He notes that he is right handed and does not smoke. Home Medications Home Medications Medication Instructions Recorded Confirmed Type aspirin 81 mg PO HS 10/25/19 10/25/19 History atorvastatin 80 mg PO HS 10/25/19 10/25/19 History lisinopril 30 mg PO QAM 10/25/19 10/25/19 History metoprolol succinate 50 mg PO QAM 10/25/19 10/25/19 History multivitamin 1 tab PO QAM 10/25/19 10/25/19 History omega 7-vec-bew-fish oil [Pal[place]-3] 1 cap PO QAM 10/25/19 10/25/19 History Allergies Allergy/AdvReac Type Severity Reaction Status Date / Time Penicillins Allergy Severe ANAPHYLAXIS Verified 10/25/19 13:18 Past Med/Surg History Medical History H/O multiple concussions Heart disease (Chronic) Heart murmur Hypertension (Chronic) Lyme disease ST elevation myocardial infarction (STEMI) of inferior wall (Inactive) Subdural hematoma (Inactive) Surgical History History of heart artery stent (Resolved) S/P CABG x 1 (Resolved) Social History Preferred Language: Mexican marital status: Current Living Situation: Family current occupational status: retired 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 and A total of 10 systems reviewed and were otherwise negative Physical Exam Vital Signs Vital Signs - 24 hr 10/25/19 11:35 10/25/19 14:00 Temperature 36.9 C 37 C Temperature Source Oral Oral Pulse Rate 64 Pulse Rhythm Regular Pulse Strength Normal Respiratory Rate 16 18 Respiratory Effort / Characteristics Non-Labored Non-Labored Spontaneous Respiratory Depth Normal Normal Respiratory Pattern Regular Regular Blood Pressure 170/97 H Blood Pressure [Right Arm] 148/92 H Blood Pressure Mean 121 Blood Pressure Mean [Right Arm] 110 Blood Pressure Position Sitting Blood Pressure Position [Right Arm] Lying Pulse Oximetry 96 98 Oxygen Delivery Method Room Air Room Air Sepsis Recent Fever Within 48 Hours No Sepsis Action Taken by Nursing No Action Required VITAL SIGNS: were reviewed as above. GENERAL:Non-toxic in appearance. SKIN: Warm dry and pink. HEAD: Normocephalic and atraumatic. OROPHARYNX: Is clear and moist NECK: Supple without lymphadenopathy or meningismus. LUNGS: clear. HEART: Regular rate and rhythm. ABDOMEN: Soft and nontender. EXTREMITIES: Warm and well perfused. NEUROLOGICALLY: Awake alert and oriented without focal deficit. Cranial nerves 2-12 are intact. There is no pronator drift. There is no nystagmus. There is no facial droop. Speech is clear. Vision is grossly normal. Ejuynw-cr-zald testing on right arm was abnormal. Cerebellar testing is otherwise within normal limits MUSCULOSKELETAL: Good muscle tone. No evidence of trauma. Course Course 1214: The patient was evaluated in room A2, and a complete history and physical examination were performed. 1505: I reviewed the patient's case with Jazmin Rebolledo PA-C, Vascular Surgery. 1522: I reviewed the patient's case with Dr. Mack Talamantes. Dr. Giron will evaluate the patient for further management. Consultations Consultation #1: I reviewed the patient's case with Jazmin Rebolledo PA-C, Vascular Surgery. Time: 15:05 Consultation #2: I reviewed the patient's case with Dr. Mack Talamantes. Dr. Giron will evaluate the patient for further management. Time: 15:22 Administered Medications Ioversol (Optiray 320 125ml) 115 ml IV ONCE PRN PRN Reason: Interaction Checking Stop: 10/29/19 14:31 Last Admin: 10/25/19 14:35 Dose: 115 ml Documented by: [id number] Medical Decision Making Differential Diagnosis Differential includes acute coronary syndrome, myocardial infarction, CVA, TIA, anemia, infection, pneumonia, UTI, pyelonephritis, poor nutrition, dehydration, electrolyte disturbance,hypoglycemia. Medical Records Attestation: I reviewed the patient's medical records. Home Medications Current Medication List: was personally reviewed by me Laboratory Data Attestation: I reviewed the patient's lab results. Result diagrams: 10/25/19 12:47 10/25/19 12:47 Lab Results 10/25/19 10/25/19 10/25/19 Range/Units 12:47 12:47 12:47 WBC 6.93 (4.8-10.8) K/uL RBC 5.19 (4.7-6.1) M/uL Hgb 18.4 H (14.0-18.0) g/dL Hct 51.3 (42-52) % MCV 98.8 (80-100) fL MCH 35.5 H (25-34) pg MCHC 35.9 (32-36) g/dL RDW Std Deviation 45.1 (36.4-46.3) fL RDW Coeff of Jose Manuel 12.4 (11.5-14.5) % Plt Count 182 (130-400) K/uL MPV 10.8 H (7.4-10.4) fL Immature Gran % (Auto) 0.1 % Neut % (Auto) 55.5 % Lymph % (Auto) 31.6 % [place] % (Auto) 12.0 % Eos % (Auto) 0.7 % Baso % (Auto) 0.1 % Immature Gran # (Auto) 0.01 (0.00-0.02) K/uL Neut # (Auto) 3.84 (1.4-6.5) K/uL Lymph # (Auto) 2.19 (1.2-3.4) K/uL Hampton # (Auto) 0.83 H (0.11-0.59) K/uL Eos # (Auto) 0.05 (0-0.5) K/uL Baso # (Auto) 0.01 (0-0.2) K/uL PT 11.0 (9.0-12.0) Seconds INR 1.1 (0.9-1.1) Sodium 138 (136-145) mmol/L Potassium 4.1 (3.5-5.1) mmol/L Chloride 106 (98-107) mmol/L Carbon Dioxide 28 (21-32) mmol/L Anion Gap 4.0 (3-11) BUN 13 (7-18) mg/dl Creatinine 1.11 (0.6-1.4) mg/dl Est Cr Clr Drug Dosing 67.2 ml/min Est GFR ( Amer) 76.5 Est GFR (Non-Af Amer) 66.0 BUN/Creatinine Ratio 11.9 (10-20) Glucose 95 (70-99) mg/dl POC Glucose (70-99) mg/dl Calcium 9.3 (8.5-10.1) mg/dl Total Bilirubin 1.2 H (0.2-1) mg/dl AST 21 (15-37) U/L ALT 37 (12-78) U/L Alkaline Phosphatase 62 (45-117) U/L Troponin I < 0.015 (0-0.045) ng/ml Total Protein 7.6 (6.4-8.2) gm/dl Albumin 3.7 (3.4-5.0) gm/dl Globulin 3.9 (2.5-4.0) gm/dl Albumin/Globulin Ratio 0.9 (0.9-2) TSH 3.100 (0.300-4.500) uIu/ml 10/25/19 Range/Units 13:11 WBC (4.8-10.8) K/uL RBC (4.7-6.1) M/uL Hgb (14.0-18.0) g/dL Hct (42-52) % MCV (80-100) fL MCH (25-34) pg MCHC (32-36) g/dL RDW Std Deviation (36.4-46.3) fL RDW Coeff of Jose Manuel (11.5-14.5) % Plt Count (130-400) K/uL MPV (7.4-10.4) fL Immature Gran % (Auto) % Neut % (Auto) % Lymph % (Auto) % [place] % (Auto) % Eos % (Auto) % Baso % (Auto) % Immature Gran # (Auto) (0.00-0.02) K/uL Neut # (Auto) (1.4-6.5) K/uL Lymph # (Auto) (1.2-3.4) K/uL Hampton # (Auto) (0.11-0.59) K/uL Eos # (Auto) (0-0.5) K/uL Baso # (Auto) (0-0.2) K/uL PT (9.0-12.0) Seconds INR (0.9-1.1) Sodium (136-145) mmol/L Potassium (3.5-5.1) mmol/L Chloride (98-107) mmol/L Carbon Dioxide (21-32) mmol/L Anion Gap (3-11) BUN (7-18) mg/dl Creatinine (0.6-1.4) mg/dl Est Cr Clr Drug Dosing ml/min Est GFR ( Amer) Est GFR (Non-Af Amer) BUN/Creatinine Ratio (10-20) Glucose (70-99) mg/dl POC Glucose 85 (70-99) mg/dl Calcium (8.5-10.1) mg/dl Total Bilirubin (0.2-1) mg/dl AST (15-37) U/L ALT (12-78) U/L Alkaline Phosphatase (45-117) U/L Troponin I (0-0.045) ng/ml Total Protein (6.4-8.2) gm/dl Albumin (3.4-5.0) gm/dl Globulin (2.5-4.0) gm/dl Albumin/Globulin Ratio (0.9-2) TSH (0.300-4.500) uIu/ml Imaging Data Radiologist's Impression: Radiology results as stated below per my review and the radiologist's interpretation: XR chest 1V portable CLINICAL HISTORY: 74 years-old Male presenting with weakness. TECHNIQUE: Portable upright AP view of the chest was obtained. COMPARISON: 09/21/2019. FINDINGS: Median sternotomy wires and mediastinal surgical clips. Coronary artery stent suspected. Atherosclerosis of the aortic arch. Cardiac silhouette mildly enlarged. No focal opacity. No large effusion or pneumothorax. Degenerative changes of the thoracic spine. Upper abdomen normal. IMPRESSION: 1. Cardiomegaly. No other convincing evidence of acute cardiopulmonary disease. ACT 112: Negative or not required by law. Electronically signed by: Hammad Renee M.D. 10/25/2019 1:[address] angio head wo/w CLINICAL HISTORY: 74 years-old Male presenting with difficulty walking, history of subdural hematoma, subarachnoid hemorrhage, and bifrontal contusions. TECHNIQUE: Multidetector CT angiography of the head was performed before and after the administration of intravenous contrast. 3-D volumetric and/or maximum intensity projection (MIP) images were subsequently reconstructed for review. IV contrast: 115 mL of Optiray 320. One or more dose lowering techniques were used consistent with the principles of ALARA (as low as reasonably achievable), including automatic exposure control, mA or kV adjustment to individual patient size, and/or use of iterative reconstruction. COMPARISON: Noncontrast CT head from 09/21/2018. CT DOSE (mGy.cm): The estimated cumulative dose is 1215.48 mGy.cm. FINDINGS: Spiritual Minister topogram: Median sternotomy wires. Noncontrast CT head: Proportional ventricular and sulcal prominence, likely age-related parenchymal volume loss. No hemorrhage. Periventricular and subcortical white matter hypoattenuation, nonspecific but likely indicative of chronic small vessel ischemic change. No acute territorial infarct. No mass effect or midline shift. No extra-axial fluid collection. Resolution of the prior extra-axial hematoma. Possible arachnoid cyst at the vertex, unchanged. Paranasal sinuses and mastoid air cells clear. Calvarium intact. Intracranial atherosclerosis noted. CTA HEAD: Anterior circulation: Atherosclerosis of the cavernous segments of the internal carotid arteries. Intracranial portions of the internal carotid arteries patent to the level of the termini. Anterior cerebral arteries patent. Middle cerebral arteries patent though with atherosclerotic plaque. This does not result in significant stenosis.. Anterior communicating artery patent. Posterior circulation: Codominant vertebral arteries. Atherosclerosis of the intradural portions of the vertebral arteries. Posterior inferior cerebellar arteries patent. Basilar artery patent. Anterior inferior cerebellar arteries poorly visualized. Superior cerebellar arteries patent. Posterior cerebral arteries patent. Right posterior communicating artery (P-comm) patent. Left P- comm hypoplastic or aplastic. Dural venous sinuses: Patent. Other: Allowing for the phase of contrast, brain parenchyma within normal limits. Calvarium intact. IMPRESSION: 1. Chronic small vessel ischemic change. No acute intracranial abnormality. 2. Multifocal atherosclerotic plaque without significant stenosis. No evidence of aneurysm or focal vessel occlusion of the intracranial arteries. ACT 112: Negative or not required by law. Electronically signed by: Hammad Renee M.D. 10/25/2019 2:51 PM NECK CTA HISTORY: can't walk straight after looking up TECHNIQUE: Multiaxial CT images of the neck were performed following the intravenous administration of contrast to evaluate the major cervical vessels. Maximum intensity projection images were also obtained. All measurements were calculated based on NASCET criteria. A dose lowering technique was utilized adhering to the principles of ALARA. COMPARISON STUDY: None. FINDINGS: The aortic arch and proximal great vessels are widely patent. Moderate calcified plaque within the right carotid bifurcation mild calcified plaque within the left carotid bifurcation. Approximately 60-70% stenosis at the takeoff of the right internal carotid artery. The remaining segments of the right internal carotid artery are widely patent. No significant stenosis within the left internal carotid artery. Dense calcified plaque with occlusion of the origin of the left vertebral artery. No contrast identified within the left vertebral artery at the C2-C3 level which could represent an additional site of occlusion. Trace contrast identified within the residual portions of the mid to distal vertebral artery which could be due to collateral flow. Faint contrast within the distal left vertebral artery may be due to retrograde flow from the basilar artery. IMPRESSION: 1. Approximately 60-70% stenosis within the origin of the right internal carotid artery. 2. Dense calcified plaque with occlusion at the origin of the left vertebral artery. No contrast identified within the left vertebral artery at the C2-C3 level which could represent an additional site of occlusion. Trace contrast identified within the residual portions of the mid to distal vertebral artery which could be due to collateral flow. Faint contrast within the distal left vertebral artery may be due to retrograde flow from the basilar artery. 3. No significant stenosis within the left carotid arteries. ACT 112: Negative or not required by law. Electronically signed by: Camilo Pagan M.D. 10/25/2019 2:52 PM ECG Data Attestation: I personally reviewed and interpreted this ECG as follows: Indication: + other (neurological symptoms) Rate (beats per minute): 62 Rhythm: + sinus rhythm ECG Intervals/blocks: + Normal QT-c ECG ST segments: + ST elevation (J point elevation in anterior leads) ECG Findings: + PACs Blood Pressure Blood Pressure Findings: Elevated blood pressure Blood Pressure Disposition: further management by hospitalist ESTEVAN Macias This is a 74-year-old male who presents to the ED with a chief complaint of difficulty walking. The patient states that 3 and 4 days ago the patient was cutting wood for most of the day. He states that he did not take his aspirin or lisinopril those 2 nights. He states that he feels like he may have dehydrated himself at that time. 2 days ago, the patient reports that he was walking outside looking up with a tree for a minute or 2. He states that when he looked down, he felt like he could not walk straight. 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 He arrived in the h ouse and he could not navigate to his chair so he needed the assistance of his . He sat in the chair for most of the day on Friday. On Friday, he did not feel dizzy any longer but states that he could not walk straight still. His symptoms improved slightly today but he still cannot walk correctly. He was brought into the ED after being seen by the PCPs office. The patient is on blood pressure medication as well as cholesterol medication and aspirin daily. Denies any history of stroke. His initial blood pressure was 170/97. His physical exam was unremarkable with exception of a systolic ejection murmur. His neuro exam reveals some abnormalities with regards to cerebellar testing and yimrka-hb-oqzh touch on the right arm. His other cerebellar testing including the fpjn-uk-zkhu seem to be symmetric. There was no nystagmus and his exam was otherwise unremarkable. A CBC and chemistry panel was unremarkable. Troponin is negative, TSH was normal and a chest x-ray was negative for acute disease. CT scan of the brain as well as CT angiogram of the brain and neck reveals that there is a 60 to 70% stenosis of the right internal carotid artery and occlusion of the left vertebral artery. The vertebral artery occlusion is consistent with the patient's cerebellar symptoms. 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 The patient had the symptoms onset about 48 hours or so ago. For this reason, he was not a candidate for thrombolytics or stroke alert. I spoke with Dr. Patel's PA, Jazmin Sen, about the patient. She states that they would consult with the patient and did not see a reason for the patient be transferred at this time. I spoke with the hospitalist about the patient. She will see the patient in the ED for further evaluation and care. Impression & Plan Cerebellar ataxia, Dizziness, Internal carotid artery stenosis, Occlusion of left vertebral artery Discharge Plan Visit Data Chief Complaint: Neuro Symptoms/Deficit Stated Complaint: CANT WALK NORMAL ED Provider: Khoa Hopkins Discharge Problem: Cerebellar ataxia, Dizziness, Internal carotid artery stenosis, Occlusion of left vertebral artery Patient Disposition: Admitted As Inpatient Forms Stand Alone Forms: My [facility] Prescriptions Prescriptions: No Action multivitamin Tablet 1 tab PO QAM RF: 0 atorvastatin 80 mg tablet 80 mg PO HS RF: 0 metoprolol succinate 50 mg tablet extended release 24 hr 50 mg PO QAM RF: 0 aspirin 81 mg Tablet,Delayed Release (Dr/Ec) 81 mg PO HS RF: 0 lisinopril 30 mg tablet 30 mg PO QAM RF: 0 [place]-3 350 mg-235 mg- 90 mg-597 mg Capsule,Delayed Release(Dr/Ec) 1 cap PO QAM RF: 0 Referrals Referrals: Ora Cabello MD [Primary Care Provider] - Discharge Problem: Internal carotid artery stenosis Qualifiers: Laterality: right Qualified Code(s): I65.21 - Occlusion and stenosis of right carotid artery The scribe's documentation has been prepared under my direction and personally reviewed by me in its entirety. I confirm that the note above accurately reflects all work, treatment, procedures, and medical decision making performed by me.
[2019-10-25 13:02] LABS: Basophils # (auto) 0.01 K/uL (0-0.2); Basophils % (auto) 0.1 %; Eosinophils # (auto) 0.05 K/uL (0-0.5); Eosinophils % (auto) 0.7 %; Hematocrit (blood only) 51.3 % (42-52); Hemoglobin 18.4 g/dL (14.0-18.0); Immature Granulocytes # (auto) 0.01 K/uL (0.00-0.02); Immature Granulocytes % (auto) 0.1 %; Lymphocytes # (auto) 2.19 K/uL (1.2-3.4); Lymphocytes % (auto) 31.6 %; Mean Corpuscular Hemoglobin 35.5 pg (25-34); Mean Corpuscular Hgb Conc 35.9 g/dL (32-36); Mean Corpuscular Volume 98.8 fL (80-100); Mean Platelet Volume 10.8 fL (7.4-10.4); Monocytes # (auto) 0.83 K/uL (0.11-0.59); Neutrophils # (auto) 3.84 K/uL (1.4-6.5); Neutrophils % (auto) 55.5 %; Platelet Count 182 K/uL (130-400); RDW Coefficient of Variation 12.4 % (11.5-14.5); RDW Standard Deviation 45.1 fL (36.4-46.3); Red Blood Count 5.19 M/uL (4.7-6.1); White Blood Count 6.93 K/uL (4.8-10.8)
--- NOTE | 2019-10-25 13:14 | XRay Report ---
XR chest 1V portable CLINICAL HISTORY: 74 years-old Male presenting with weakness. TECHNIQUE: Portable upright AP view of the chest was obtained. COMPARISON: 09/21/2019. FINDINGS: Median sternotomy wires and mediastinal surgical clips. Coronary artery stent suspected. Atherosclero sis of the aortic arch. Cardiac silhouette mildly enlarged. No focal opacity. No large effusion or pn eumothorax. Degenerative changes of the thoracic spine. Upper abdomen normal. IMPRESSION: 1. Cardiomegaly. No other convincing evidence of acute cardiopulmonary disease. ACT 112: Negative or not required by law. Electronically signed by: Hammad Renee M.D. 10/25/2019 1:13 PM
[2019-10-25 13:19] LABS: Alanine Aminotransferase 37 U/L (12-78); Albumin Level 3.7 gm/dl (3.4-5.0); Aspartate Aminotransferase 21 U/L (15-37); BUN Creatinine Ratio 11.9 (10-20); Blood Urea Nitrogen 13 mg/dl (7-18); Calcium 9.3 mg/dl (8.5-10.1); Carbon Dioxide 28 mmol/L (21-32); Chloride 106 mmol/L (98-107); Creatinine Clr Calc Pharmacy 67.2 ml/min; Est GFR (African American) 76.5; Glucose 95 mg/dl (70-99); Potassium 4.1 mmol/L (3.5-5.1); Sodium 138 mmol/L (136-145)
[2019-10-25 13:26] LABS: INR 1.1 (0.9-1.1)
[2019-10-25 13:29] LABS: Albumin Globulin Ratio 0.9 (0.9-2); Alkaline Phosphatase 62 U/L (45-117); Bilirubin,Total 1.2 mg/dl (0.2-1); Globulin 3.9 gm/dl (2.5-4.0); Total Protein 7.6 gm/dl (6.4-8.2); Troponin I < 0.015 ng/ml (0-0.045)
[2019-10-25] MEDS ORDERED: OPTIRAY 320 125ml IV PRN (14:32)
--- NOTE | 2019-10-25 14:53 | CT Scan Report ---
CT angio head wo/w CLINICAL HISTORY: 74 years-old Male presenting with difficulty walking, history of subdural hematoma, subarachnoid hemorrhage, and bifrontal contusions. TECHNIQUE: Multidetector CT angiography of the head was performed before and after the administration of intravenous contrast. 3-D volumetric and/or maximum intensity projection (MIP) images were subseq uently reconstructed for review. IV contrast: 115 mL of Optiray 320. One or more dose lowering techni ques were used consistent with the principles of ALARA (as low as reasonably achievable), including a utomatic exposure control, mA or kV adjustment to individual patient size, and/or use of iterative re construction. COMPARISON: Noncontrast CT head from 09/21/2018. CT DOSE (mGy.cm): The estimated cumulative dose is 1215.48 mGy.cm. FINDINGS: Print Graphic Designer topogram: Median sternotomy wires. Noncontrast CT head: Proportional ventricular and sulcal prominence, likely age-related parenchymal volume loss. No hemorr cherrie. Periventricular and subcortical white matter hypoattenuation, nonspecific but likely indicative of chronic small vessel ischemic change. No acute territorial infarct. No mass effect or midline paul ft. No extra-axial fluid collection. Resolution of the prior extra-axial hematoma. Possible arachnoid cyst at the vertex, unchanged. Paranasal sinuses and mastoid air cells clear. Calvarium intact. Intr acranial atherosclerosis noted. CTA HEAD: Anterior circulation: Atherosclerosis of the cavernous segments of the internal carotid arteries. Int racranial portions of the internal carotid arteries patent to the level of the termini. Anterior cere bral arteries patent. Middle cerebral arteries patent though with atherosclerotic plaque. This does n ot result in significant stenosis.. Anterior communicating artery patent. Posterior circulation: Codominant vertebral arteries. Atherosclerosis of the intradural portions of t he vertebral arteries. Posterior inferior cerebellar arteries patent. Basilar artery patent. Anterior inferior cerebellar arteries poorly visualized. Superior cerebellar arteries patent. Posterior cereb ral arteries patent. Right posterior communicating artery (P-comm) patent. Left P-comm hypoplastic or aplastic. Dural venous sinuses: Patent. Other: Allowing for the phase of contrast, brain parenchyma within normal limits. Calvarium intact. IMPRESSION: 1. Chronic small vessel ischemic change. No acute intracranial abnormality. 2. Multifocal atherosclerotic plaque without significant stenosis. No evidence of aneurysm or focal vessel occlusion of the intracranial arteries. ACT 112: Negative or not required by law. Electronically signed by: Hammad Renee M.D. 10/25/2019 2:51 PM
--- NOTE | 2019-10-25 14:54 | CT Scan Report ---
NECK CTA HISTORY: can't walk straight after looking up TECHNIQUE: Multiaxial CT images of the neck were performed following the intravenous administration o f contrast to evaluate the major cervical vessels. Maximum intensity projection images were also obta ined. All measurements were calculated based on NASCET criteria. A dose lowering technique was utili zed adhering to the principles of ALARA. COMPARISON STUDY: None. FINDINGS: The aortic arch and proximal great vessels are widely patent. Moderate calcified plaque wi thin the right carotid bifurcation mild calcified plaque within the left carotid bifurcation. Approxi mately 60-70% stenosis at the takeoff of the right internal carotid artery. The remaining segments of the right internal carotid artery are widely patent. No significant stenosis within the left interna l carotid artery. Dense calcified plaque with occlusion of the origin of the left vertebral artery. N o contrast identified within the left vertebral artery at the C2-C3 level which could represent an ad ditional site of occlusion. Trace contrast identified within the residual portions of the mid to dist al vertebral artery which could be due to collateral flow. Faint contrast within the distal left ivan tebral artery may be due to retrograde flow from the basilar artery. IMPRESSION: 1. Approximately 60-70% stenosis within the origin of the right internal carotid artery. 2. Dense calcified plaque with occlusion at the origin of the left vertebral artery. No contrast iden tified within the left vertebral artery at the C2-C3 level which could represent an additional site o f occlusion. Trace contrast identified within the residual portions of the mid to distal vertebral ar benny which could be due to collateral flow. Faint contrast within the distal left vertebral artery m ay be due to retrograde flow from the basilar artery. 3. No significant stenosis within the left carotid arteries. ACT 112: Negative or not required by law. Electronically signed by: Camilo Pagan M.D. 10/25/2019 2:52 PM
--- NOTE | 2019-10-25 16:59 | History & Physical Report ---
Date of Service October 25, 2019 Assessment & Plan (1) Acute ischemic stroke: Admit to PCU on telemetry Vital signs every 4 hours Started stroke protocol without TPA since patient is outside of the window. The case discussed with neurologist from tele-stroke at [facility] who recommended to check fasting lipid panel, continue atorvastatin 80 mg nightly, continue aspirin 81 with a loading dose of Plavix 300 mg x 1 and 75 mg thereafter for 1 months. Continue blood pressure control with lisinopril 30 mg p.o. every morning, metoprolol 50 mg p.o. every morning. Continue omega 3 fish oils. TTE pending Consult neurology Consult vascular surgery for right carotid artery stenosis and left vertebral artery occlusion. DVT prophylaxis SCDs and teds Physical and Occupational Therapy for cerebellar ataxia. Full code Present on Admission?: Yes (2) Cerebellar ataxia: As the above Present on Admission?: Yes (3) Dizziness: As the above Present on Admission?: Yes (4) Internal carotid artery stenosis: Consult vascular surgery Dr. Patel. Present on Admission?: Yes (5) Occlusion of left vertebral artery: Consult vascular surgery Dr. Patel. Management as discussed above Present on Admission?: Yes (6) Hypertension: Blood pressure is mostly stable. Continue home medicine aspirin 81 mg p.o. nightly, lisinopril 30 mg p.o. every morning, metoprolol succinate 50 mg p.o. every morning. Present on Admission?: Yes (7) Coronary artery disease: Continue home medicine: Aspirin 81 mg p.o. nightly, atorvastatin 80 mg p.o. nightly, lisinopril 830 mg p.o. every morning, metoprolol succinate 50 mg p.o. every morning, Aztec 3 fish oil 1 capsule p.o. every morning. Present on Admission?: Yes (8) Hyperlipidemia: Fasting lipid panel pending. Continue atorvastatin 80 mg p.o. nightly. Present on Admission?: Yes History of Present Illness Chief Complaint: Ambulatory dysfunction, unsteady gait Primary Care Provider: Ora Cabello MD The patient is a 74 years old male with a history of hypertension, STEMI, subdural hematoma, multiple concussions, coronary artery disease, CABG in 2006 and cardiac stent placement in 2017, Lyme disease who presents to the emergency room with a complaint of ambulatory dysfunction for 2 days. Patient reports that he was walking outside 2 days ago and he looked up at the top of the tree for a few minutes , when he started to tilt his head down he could not seem to walk straight. Patient was also complaining of dizziness and weakness at that time. Patient said that condition improved in the past 24 hours. Patient reports that his gait is now improving. Patient reports that dizziness and weakness is somewhat still persistent. Patient denies fever, chills, vision problem, near syncope or syncope. Patient reports having an incident of injury resulting in subdural hematoma 13 months ago. Patient reports that he was on Plavix at that time and because of that injury he was taking off of it. Patient was first evaluated by Mariaa COFFMAN at [facility] at the [facility] office earlier today and subsequently referred to the emergency room. Patient reports that he forgot to take his daily dose of aspirin 81 and 80 mg of Lipitor for 2 consecutive nights. Patient regularly takes metoprolol and lisinopril. Patient reports that he does not have deficit in any of his extremities. His vision is normal. EKG shows normal sinus rhythm with a premature atrial complexes with aberrant conduction. Left ventricular hypertrophy with QRS wi dening and repolarization abnormalities. Possible inferior infarct. Labs WBC 6.93, hemoglobin 18.4, hematocrit 51.3, platelets 182. PT 11. INR 1.1. CT of the head: Chronic small vessel ischemic changes. No acute intracranial abnormality. Multifocal atherosclerotic plaque within a significant stenosis. No evidence of aneurysm focal vessel occlusion or intracranial arteries. Neck CTA shows approximately 60 to 70% stenosis within the origin of the right internal carotid artery. Dense calcified plaque with occlusion at the origin of the left vertebral artery. No contrast identified within the left cerebral artery at the C2-C3 level which could represent an additional side occlusion. Trace contrast identified within the residual portion of the mid to distal vertebral artery which could be due to collateral flow. Faint contrast within the distal left vertebral artery may be due to the retrograde flow from the basilar artery. No significant stenosis within the left carotid arteries. Brain MRI shows small acute focal infarct medial right cerebellum. Age-related atrophy and considerable chronic small vessel changes. No abnormal past contrast enhancement. Chest x-ray show cardiomegaly. No other convincing evidence of acute cardiopulmonary disease. Decision was made to admit patient to PCU on telemetry for evaluation of possible acute versus subacute stroke. Allergies Allergy/AdvReac Type Severity Reaction Status Date / Time Penicillins Allergy Severe ANAPHYLAXIS Verified 10/25/19 13:18 Home Medications Home Medications Medication Instructions Recorded Confirmed Type aspirin 81 mg PO HS 10/25/19 10/25/19 History atorvastatin 80 mg PO HS 10/25/19 10/25/19 History lisinopril 30 mg PO QAM 10/25/19 10/25/19 History metoprolol succinate 50 mg PO QAM 10/25/19 10/25/19 History multivitamin 1 tab PO QAM 10/25/19 10/25/19 History omega 3-omg-tbo-fish oil [Aztec-3] 1 cap PO QAM 10/25/19 10/25/19 History Past Med/Surg History Medical History H/O multiple concussions Heart disease (Chronic) Heart murmur Hypertension (Chronic) Lyme disease ST elevation myocardial infarction (STEMI) of inferior wall (Inactive) Subdural hematoma (Inactive) Surgical History History of heart artery stent (Resolved) S/P CABG x 1 (Resolved) Social History Preferred Language: Maori Communication Ability: Effective Beliefs That Will Affect Care: None marital status: Current Living Situation: Spouse current occupational status: retired 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 [employer] Other Information That Helps Us Care for You: No Feels Safe at Home: Yes Safety Concerns: Feels Safe At This Time Smoking Status: Never smoker Hx Alcohol Use: No Hx Substance Use: No Review of Systems Review of Systems: All systems reviewed & are unremarkable except as noted in HPI & below Physical Exam Constitutional: WD/WN, vitals as above well developed and + obese Eyes: PERRL, conjunctivae normal, anicteric sclerae ENMT: external ear and nose normal, oropharynx normal Neck: trachea midline, no thyromegaly Respiratory: normal respiratory effort, lungs clear to auscultation Cardiovascular: Heart Sounds: normal S1, normal S2 and + murmur Vessels: dorsalis pedis pulses present Gastrointestinal (Abdomen): normal bowel sounds, soft, nontender, no hepatosplenomegaly Musculoskeletal: no cyanosis or clubbing, extremities motor strength 5/5 Skin: no rashes, warm and dry Neurologic: patellar DTR's 2+ bilat, sensation intact and PERRL, EOMI, accommodation nl, no face palsy, no dysarthria plantar reflexes intact bilaterally, moves all extremities and awake Coordination: + abnormal [id number] test Cerebellar ataxia Psychiatric: A+Ox3, euthymic affect Lymphatic: no cervical or axillary lymphadenopathy Results & Data Vital Signs (Past 12 Hours) Vital Signs Temp Pulse Pulse Resp BP BP Pulse Ox 10/25/19 16:00 65 16 144/85 H 96 10/25/19 14:00 37 C 18 148/92 H 98 10/25/19 11:35 36.9 C 64 16 170/97 H 96 Code Status & VTE Plan Code Status Full code VTE Prophylaxis Plan VTE Prophylaxis will be ordered: Yes PG Care Time/CCT Total # of Minutes Spent Total Time Spent with Patient: Total time spent is greater than 50% in coordination of care (as documented) at patient's floor/unit and/or counseling patient: (1) Internal carotid artery stenosis Laterality: right Qualified Code(s): I65.21 - Occlusion and stenosis of right carotid artery
[2019-10-25] MEDS ORDERED: ACETAMINOPHEN 325 MG TAB PO PRN (19:06)
[2019-10-25] MEDS ORDERED: MAGNESIUM HYDROXIDE SUSP 30 ML UDC PO PRN (19:06)
[2019-10-25] MEDS ORDERED: PHARMACIST DISCHARGE MED REC CONSULT PRN (19:06)
[2019-10-25] MEDS ORDERED: ALUMINUM/MAGNESIUM SUSP 30 ML UDC PO PRN (19:06)
[2019-10-25] MEDS ORDERED: POLYETHYLENE (MIRALAX) 17 GM PACK PO PRN (19:06)
[2019-10-25] MEDS ORDERED: ONDANSETRON INJ 2 MG/ML 2 ML VIAL IV PRN (19:06)
[2019-10-25] MEDS ORDERED: ATORVASTATIN 40 MG TAB PO SCH (21:00)
[2019-10-25] MEDS ORDERED: ASPIRIN 81 MG ECTAB PO SCH (21:00)
--- NOTE | 2019-10-25 21:12 | Magnetic Resonance Report ---
MR brain wo con HISTORY: Mental status change TIA vs stroke TECHNIQUE: Multiplanar multisequence MRI of the brain was performed without the use of contrast. COMPARISON STUDY: None. FINDINGS: Diffusion images show a very small acute infarct medial aspect right cerebellum. No additio nal significant foci is appreciated. There are findings of age-related chronic small vessel change and atrophy. Ventricular system is midl ine. Postcontrast images are considered negative for significant postcontrast enhancement. IMPRESSION: 1. Small acute focal infarct medial right cerebellum 2. Age-related atrophy and considerable chronic small vessel change. 3. No abnormal postcontrast enhancement. ACT 112: Negative or not required by law. The above report was generated using voice recognition software. It may contain grammatical, syntax or spelling errors. Electronically signed by: Woody Pruett M.D. 10/25/2019 9:10 PM
[2019-10-25] MEDS ORDERED: CLOPIDOGREL BISULFATE 300 MG TAB PO STA (23:02)
[2019-10-26 05:23] LABS: Basophils # (auto) 0.02 K/uL (0-0.2); Basophils % (auto) 0.3 %; Eosinophils % (auto) 1.4 %; Hemoglobin 17.2 g/dL (14.0-18.0); Immature Granulocytes # (auto) 0.02 K/uL (0.00-0.02); Immature Granulocytes % (auto) 0.3 %; Lymphocytes # (auto) 2.47 K/uL (1.2-3.4); Lymphocytes % (auto) 35.7 %; Mean Corpuscular Hemoglobin 34.4 pg (25-34); Mean Corpuscular Hgb Conc 35.1 g/dL (32-36); Mean Platelet Volume 10.6 fL (7.4-10.4); Neutrophils % (auto) 49.3 %; Platelet Count 169 K/uL (130-400); RDW Coefficient of Variation 12.5 % (11.5-14.5); RDW Standard Deviation 44.9 fL (36.4-46.3); White Blood Count 6.91 K/uL (4.8-10.8)
[2019-10-26 05:49] LABS: Albumin Level 3.4 gm/dl (3.4-5.0); Calcium 8.8 mg/dl (8.5-10.1); Creatinine Clr Calc Pharmacy 72.9 ml/min; Est GFR (African American) 85.7; Potassium 3.8 mmol/L (3.5-5.1)
[2019-10-26 05:51] LABS: Bilirubin,Total 1.6 mg/dl (0.2-1); Globulin 3.4 gm/dl (2.5-4.0); Total Protein 6.8 gm/dl (6.4-8.2)
--- NOTE | 2019-10-26 06:01 | Electrocardiogram Report ---
Test Reason : Blood Pressure : / mmHG Vent. Rate : 062 BPM Atrial Rate : 062 BPM P-R Int : 172 ms QRS Dur : 118 ms QT Int : 426 ms P-R-T Axes : 006 -21 113 degrees QTc Int : 432 ms Poor data quality, interpretation may be adversely affected Sinus rhythm with Premature ventricular complexes Left ventricular hypertrophy with QRS widening and repolarization abnormality Possible Inferior infarct Abnormal ECG When compared with ECG of 21-SEP-2018 15:59, Premature ventricular complexes are now Present Questionable change in initial forces of Inferior leads Confirmed by Liborio Dacosta ([id number]) on 10/26/2019 6:00:58 AM Referred By: REFERRED SELF Confirmed By:Liborio Dacosta
[2019-10-26 06:21] LABS: Estimated Average Glucose 131 mg/dl; Hemoglobin A1C 6.2 % (4.5-5.6)
[2019-10-26 06:32] LABS: Estimated Average Glucose 131 mg/dl; Hemoglobin A1C 6.2 % (4.5-5.6)
[2019-10-26] MEDS ORDERED: CLOPIDOGREL BISULFATE 75 MG TAB PO SCH (09:00)
[2019-10-26] MEDS ORDERED: OMEGA-3 (PURIFIED FISH OIL) 1 GM CAP PO SCH (09:00)
[2019-10-26] MEDS ORDERED: lisinopriL 10 MG TAB PO SCH (09:00)
[2019-10-26] MEDS ORDERED: MULTIVITAMIN TAB PO SCH (09:00)
[2019-10-26] MEDS ORDERED: METOPROLOL SUCC 50MG EXT REL TAB PO SCH (09:00)
--- NOTE | 2019-10-26 10:13 | Neurology Consultation ---
Date of Consultation October 26, 2019 Assessment & Plan (1) Acute ischemic stroke: (2) Cerebellar ataxia: (3) Occlusion of left vertebral artery: (4) Hypertension: (5) Chronic cerebral ischemia: (6) Internal carotid artery stenosis: Patient had a right medial cerebellar acute stroke likely October 23. Currently on examination he has some mild right upper extremity ataxia and clumsiness without significant ataxia of the right lower extremity. His gait is slightly ataxic/slightly wide-based. The etiology of the stroke may be exclusively from hypertensive small vessel ischemic disease. His MRI shows significant old small vessel ischemic disease more advanced than his age should have which is likely secondary to hypertension and history of dyslipidemia. He has never been a cigarette smoker and does not have diabetes. Hemoglobin A1c was borderline at 6 0.2. Another likely etiology is, given the fact that he has a near occlusion of the left vertebral artery plus 60 due to 70) stenosis of the right internal carotid artery, when he extended his neck for several minutes to look at the tops of the trees he can't office right vertebral and therefore had decreased perfusion to the right cerebellum. The patient has no other neurologic deficits. Recommendations: 1. Consider discontinuing 81 milligram aspirin and keeping him on clopidogrel 75 milligrams daily. Clopidogrel should do a better job and aspirin alone a providing small vessel ischemia. Both together would give him bleeding risk. 2. Control blood pressure as you are doing a meeting for a mean arterial pressure of 95-100. 3. Continue atorvastatin at the current dose. 4. Increase activity as able. Consider physical and occupational therapy consults. He will probably need some outpatient physical therapy. 5. Echocardiogram is pending. 6. I can follow as an outpatient in 2-3 weeks. Overall, I spent a total of 105 minutes with this case including review of records, review of MRI and CT angiography films (with Dr. Capone in Radiology), direct evaluation patient at bedside, and discussing the case with the patient and his at bedside, his RN at bedside, Jazmin Sen PA-C and Dr. Hardy, including differential diagnosis and treatment options. History of Present Illness Reason for Consultation: Patient is a 74-year-old, who I was asked to see at the request of Dr. Giron, for neurologic consultation regarding stroke Requesting Physician: Dr. Giron Attending Physician: Ronnie Hardy, DO History of Present Illness Patient has a history of coronary artery disease post stent in 2017 and a single coronary artery bypass graft. He has a history of hypertension as well. In the fall of 2017 he was on both 81 milligram aspirin +70 5 milligram clopidogrel daily. In September of 2018 he was out in his property cutting down trees. A tree fell into his chest knocking him backwards 8 feet and the right side of his head struck a freshly cut stump. He had a severe contusion on the right and went to the emergency room. There was a subdural/epidural hematoma right parietal, with some intraventricular blood and some petechial hemorrhage seen on MRI. He was sent to [place] and watched but no surgery was ultimately done and the blood re sorbed. He was taken off Plavix and has remained on 81 milligram aspirin daily ever since. On October 23 in the morning he was outside serving trees and his property. He extended his neck to look at the top of the trees for up to several minutes. He then lowered his gaze and notice that his balance was off and he had some nonspecific dizziness. He managed to stumble back to the house (like he was drunk) and there was some nausea without vomiting. He denied vertigo. He felt that his right greater than left leg and arm were not working as well as if they could not find spatially where to be. He did not have any pain or greg weakness or lack of sensation. He rested that day and on October 24 felt a little improved had no further dizziness or nausea. His gait was starting to get a little bit better but he still had clumsiness in the right hand. He saw his primary care physician October 25 who sent him to the emergency room. He arrived to the emergency room October 25 at 1135 with a temperature of 36.9, pulse 64, respiratory 16, blood pressure 170/97, and O2 saturation 96 percent. He had some ataxia with [id number] testing on the right but no other focal neurologic findings. CBC and Chem profile were largely unremarkable. Triglycerides were 119 into a cholesterol 119. TSH was 3.1 CT scan of the head was unremarkable. CT angiography of the head and neck revealed a 60-70 percent stenosis at the origin of the right internal carotid artery. In addition there was severe stenosis with calcification at the origin of the left vertebral origin resulting in just a sliver of blood noted in the left vertebral throughout the mid course of the vessel. Up around C2/3 there seem to be some more calcification and possible occlusion. The right vertebral and left carotid were largely unremarkable. MRI of the brain revealed a relatively small right medial cerebellar stroke. There was additionally moderate atrophy and moderate small vessel ischemic changes diffusely. This looked greater than should be for his age of 74. This morning he is improving with his function and gait but he is still not back to normal. He has sinus Raciel in the 50-60 range with PVCs. Blood pressure is 114/73 this morning. Allergies Allergy/AdvReac Type Severity Reaction Status Date / Time Penicillins Allergy Severe ANAPHYLAXIS Verified 10/25/19 13:18 Home Medications Home Medications Medication Instructions Recorded Confirmed Type aspirin 81 mg PO HS 10/25/19 10/25/19 History atorvastatin 80 mg PO HS 10/25/19 10/25/19 History lisinopril 30 mg PO QAM 10/25/19 10/25/19 History metoprolol succinate 50 mg PO QAM 10/25/19 10/25/19 History multivitamin 1 tab PO QAM 10/25/19 10/25/19 History omega 7-sqn-yon-fish oil [[place]-3] 1 cap PO QAM 10/25/19 10/25/19 History Patient History Medical History (Updated 10/26/19 @ 10:26 by Beto Murphy III, MD) H/O multiple concussions Heart disease (Chronic) Heart murmur Hypertension (Chronic) Lyme disease ST elevation myocardial infarction (STEMI) of inferior wall (Inactive) Subdural hematoma (Inactive) Surgical History H/O shoulder surgery History of heart artery stent (Resolved) S/P CABG x 1 (Resolved) Family History Mother , age 91 with congestive heart failure Heart disease Father , age 72 of an [place] Myocardial infarction Social History Preferred Language: American Communication Ability: Effective Beliefs That Will Affect Care: None marital status: Current Living Situation: Spouse current occupational status: retired 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 [employer], Other Information That Helps Us Care for You: No 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 Feels Safe at Home: Yes Safety Concerns: Feels Safe At This Time Smoking Status: Never smoker Hx Alcohol Use: No Hx Substance Use: No Review of Systems Constitutional: no fever, no fatigue and no weakness Eyes: no diplopia, no eye pain and no worsening vision Ear, Nose, Mouth, Throat: no ear pain, no tinnitus, no hearing loss, no dizziness, no snoring, no hoarseness and no dysphagia Respiratory: no cough and no dyspnea Cardiovascular: no chest pain, no palpitations and no lightheadedness Gastrointestinal: no abdominal pain, no nausea and no vomiting Genitourinary: no dysuria and no urinary incontinence Musculoskeletal: no back pain, no neck pain, no radicular pain, no joint pain and no myalgia Integumentary: no rash and no lesions Neurologic: + gait abnormality and + lack of coordination (Right hand); no localized weakness, no generalized weakness, no tingling, no numbness, no tremor(s), no abnormal movements, no headache(s), no abnormal speech, no confusion and no memory loss Psychiatric: no depression, no irritability, no anxiety, no difficulty concentrating, no confusion and no hallucinations Endocrine: no fatigue and no flushing Hematologic / Lymphatic: no easy bleeding and no easy bruising Allergy / Immunological: no urticaria and no problem reported Physical Exam Physical Exam: The patient is right-handed. The patient is awake, alert, and attentive. Speech is normal without any aphasia or dysarthria. he can name objects, repeat phrases, and has normal spontaneous speech. Mentation and thought processes are intact, with orientation to person, place and time, and normal fund of knowledge. Attention and concentration are normal. Mood and affect are normal and appropriate. General appearance and grooming are normal. Short and long-term memory are intact. The discs are sharp with positive venous pulsations bilaterally. There are no exudates, hemorrhages, or blood vessel changes seen. Pupils are 4 mm bilaterally and reactive to light. Extraocular eye muscles are intact without nystagmus. Visual acuity and visual cota seem normal grossly to confrontation. There are no deficits to sensation in the face in all 3 distributions of the fifth cranial nerve bilaterally. Corneal reflexes are positive bilaterally. Facial strength and symmetry was normal bilaterally. Hearing seems normal to whisper and finger rub bilaterally. Palate moves well without asymmetry. There is normal sternocleidomastoid and trapezius (shoulder shrug) strength bilaterally. Tongue is midline with good strength bilaterally. Neck has a full range of motion without discomfort. There are no cervical bruits bilaterally. There are no cranial or ocular bruits. Heart has a systolic murmur. There is a regular rhythm and rate. Cervical, thoracic, and lumbar spine are nontender to palpation. Gait is slightly wide based, with good arm swing, turns, and stance. Balance is reasonable eyes open or closed. With outstretched arms there is no drift. There are no resting, postural, or action tremors. There is ataxia with finger to nose testing on the right but not the left. There is decreased facility in the right hand but not the left. No other abnormal involuntary movements are noted. Dylv-zp-ajzf testing seems star sonable bilaterally. Motor strength is 5/5 diffusely in the arms bilaterally including deltoids, biceps, triceps, brachioradialis, wrist flexors and extensors, frame stylist, and intrinsic hand muscles. Motor strength is 5/5 diffusely in the legs bilaterally including hip flexors, quadriceps, hamstrings, gastrocnemius, tibialis anterior, tibialis posterior, and Peroneii muscles. Toe extensors are normal and there is good bulk in the extensor digitorum brevis muscles bilaterally. The limbs have good tone without rigidity or spasticity. There is no atrophy noted in the muscles. Muscle bulk is normal, there is no tenderness to palpation, no myotonia to percussion, and no fasciculations seen. Sensory examination is intact to touch and pin throughout all 4 limbs diffusely. Reflexes are 2/4 in the biceps, triceps, brachioradialis, quadriceps, and Achilles tendons bilaterally. There is no clonus bilaterally. Toes are downgoing with plantar stimulation bilaterally. Peripheral pulses are present and of normal quality distally in all 4 limbs. There is no peripheral edema noted in the limbs. Results & Data Vital Signs (Past 12 Hours) Vital Signs Temp Pulse Pulse Resp BP Pulse Ox 10/26/19 07:50 68 10/26/19 07:13 36.7 C 57 L 16 114/73 96 10/26/19 02:55 36.4 C L 54 L 18 138/76 95 10/25/19 23:11 36.9 C 57 L 18 114/69 95 Diagnostic Findings MR brain wo con HISTORY: Mental status change TIA vs stroke TECHNIQUE: Multiplanar multisequence MRI of the brain was performed without the use of contrast. COMPARISON STUDY: None. FINDINGS: Diffusion images show a very small acute infarct medial aspect right cerebellum. No additional significant foci is appreciated. There are findings of age-related chronic small vessel change and atrophy. Ventricular system is midline. Postcontrast images are considered negative for significant postcontrast enhancement. IMPRESSION: 1. Small acute focal infarct medial right cerebellum 2. Age-related atrophy and considerable chronic small vessel change. 3. No abnormal postcontrast enhancement. ACT 112: Negative or not required by law. The above report was generated using voice recognition software. It may contain grammatical, syntax or spelling errors. Electronically signed by: Woody Pruett M.D. 10/25/2019 9:10 PM PG Care Time/CCT Total # of Minutes Spent Total Time Spent with Patient: Total time spent is greater than 50% in coordination of care (as documented) at patient's floor/unit and/or counseling patient: (1) Internal carotid artery stenosis Laterality: right Qualified Code(s): I65.21 - Occlusion and stenosis of right carotid artery
--- NOTE | 2019-10-26 10:20 | Consultation ---
Date of Consultation October 26, 2019 Assessment & Plan (1) Internal carotid artery stenosis: Pt with approx 60% stenosis of R ICA and occluded L vert art, admitted with ataxia and acute cerebellar infarct. Recommend antiplatelet therapy with ASA and plavix for secondary prevention, if no contraindications. No indications for vascular surgical intervention at this time. Will see in office in 6 months with carotid US for surveillance. Please call if needed. Laterality: right Qualified Code(s): I65.21 - Occlusion and stenosis of right carotid artery (2) Occlusion of left vertebral artery: Pt with likely chronically occluded L vertebral art. No indications for vascular surgical intervention at this time. See above History of Present Illness Reason for Consultation: vertebral art occlusion, ICA stenosis, cerebellar CVA Attending Physician: Ronnie Hardy, History of Present Illness 74 yo m with hx of CAD s/p CABG and coronary stenting in past, hyperlipidemia, HTN, admitted with ataxia d/t acute cerebellar infarct, seen in consultation today regarding L vertebral art occlusion and R ICA stenosis of 60% noted on CTA. Pt states he was at home looking upward at treetops a few days ago. When he looked down, he was unable to control his BLE and BUE. States he "looked like a drunken dining host," when attempting to ambulate back to his house. States he made it to his recliner and slept the rest of the day. Continued to have similar sx the following day, but feels they were slightly improved and has continued to improve since then. Denies HE, vertigo, amaurosis, unilateral weakness/numbness/tingling, speech changes, disorientation, palpitations, chest pain, SOB, fever, abd pain, N/V, other complaints. CTA neck demonstrates occluded L vertebral artery and 60% stenosis R ICA. Brain MRI demonstrates acute cerebellar infarct. Allergies Allergy/AdvReac Type Severity Reaction Status Date / Time Penicillins Allergy Severe ANAPHYLAXIS Verified 10/25/19 13:18 Home Medications Home Medications Medication Instructions Recorded Confirmed Type aspirin 81 mg PO HS 10/25/19 10/25/19 History atorvastatin 80 mg PO HS 10/25/19 10/25/19 History lisinopril 30 mg PO QAM 10/25/19 10/25/19 History metoprolol succinate 50 mg PO QAM 10/25/19 10/25/19 History multivitamin 1 tab PO QAM 10/25/19 10/25/19 History omega 6-ath-yti-fish oil [[place]-3] 1 cap PO QAM 10/25/19 10/25/19 History Patient History Medical History H/O multiple concussions Heart disease (Chronic) Heart murmur Hypertension (Chronic) Lyme disease ST elevation myocardial infarction (STEMI) of inferior wall (Inactive) Subdural hematoma (Inactive) Surgical History History of heart artery stent (Resolved) S/P CABG x 1 (Resolved) Social History Preferred Language: [place] Communication Ability: Effective Beliefs That Will Affect Care: None marital status: Current Living Situation: Spouse current occupational status: retired 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 [employer] Other Information That Helps Us Care for You: No Feels Safe at Home: Yes Safety Concerns: Feels Safe At This Time Smoking Status: Never smoker Hx Alcohol Use: No Hx Substance Use: No Review of Systems Review of Systems: All systems reviewed & are unremarkable except as noted in HPI & below Physical Exam Constitutional: WD/WN, vitals as above healthy appearing, cooperative and comfortable; not in distress Eyes: PERRL, conjunctivae normal, anicteric sclerae ENMT: external ear and nose normal, oropharynx normal Ears: no hearing impairment Neck: trachea midline, no thyromegaly Respiratory: normal respiratory effort; no respiratory distress Auscultation: lungs clear to auscultation bilaterally Cardiovascular: Rate/Rhythm: regular rate and regular rhythm Vessels: + carotid bruit, posterior tibial pulses present, dorsalis pedis pulses present, brachial pulses present and radial pulses present Extremities: normal capillary refill; no edema Gastrointestinal (Abdomen): normal bowel sounds, soft, nontender, no hepatosplenomegaly Musculoskeletal: no cyanosis or clubbing, extremities motor strength 5/5 Skin: no rashes, warm and dry Neurologic: moves all extremities; no focal motor deficits and not confused Speech / Cognition: normal speech Psychiatric: A+Ox3, euthymic affect Results & Data Vital Signs (Past 12 Hours) Vital Signs Temp Pulse Pulse Resp BP Pulse Ox 10/26/19 07:50 68 10/26/19 07:13 36.7 C 57 L 16 114/73 96 10/26/19 02:55 36.4 C L 54 L 18 138/76 95 10/25/19 23:11 36.9 C 57 L 18 114/69 95
[2019-10-26 11:32] VITALS: BP 116/67; TEMP 97.5
[2019-10-26] MEDS ORDERED: STROKE PATIENT DISCHARGE STA (13:08)
--- NOTE | 2019-10-26 13:09 | Discharge Summary ---
Date of Service October 26, 2019 Admission HPI Per Admitting Provider The patient is a 74 years old male with a history of hypertension, STEMI, subdural hematoma, multiple concussions, coronary artery disease, CABG in 2006 and cardiac stent placement in 2017, Lyme disease who presents to the emergency room with a complaint of ambulatory dysfunction for 2 days. Patient reports that he was walking outside 2 days ago and he looked up at the top of the tree for a few minutes , when he started to tilt his head down he could not seem to walk straight. Patient was also complaining of dizziness and weakness at that time. Patient said that condition improved in the past 24 hours. Patient reports that his gait is now improving. Patient reports that dizziness and weakness is somewhat still persistent. Patient denies fever, chills, vision problem, near syncope or syncope. Patient reports having an incident of injury resulting in subdural hematoma 13 months ago. Patient reports that he was on Plavix at that time and because of that injury he was taking off of it. Patient was first evaluated by Mariaa COFFMAN at [facility] at the [facility] office earlier today and subsequently referred to the emergency room. Patient reports that he forgot to take his daily dose of aspirin 81 and 80 mg of Lipitor for 2 consecutive nights. Patient regularly takes metoprolol and lisinopril. Patient reports that he does not have deficit in any of his extremities. His vision is normal. EKG shows normal sinus rhythm with a premature atrial complexes with aberrant conduction. Left ventricular hypertrophy with QRS widening and repolarization abnormalities. Possible inferior infarct. Labs WBC 6.93, hemoglobin 18.4, hematocrit 51.3, platelets 182. PT 11. INR 1.1. CT of the head: Chronic small vessel ischemic changes. No acute intracranial abnormality. Multifocal atherosclerotic plaque within a significant stenosis. No evidence of aneurysm focal vessel occlusion or intracranial arteries. Neck CTA shows approximately 60 to 70% stenosis within the origin of the right internal carotid artery. Dense calcified plaque with occlusion at the origin of the left vertebral artery. No contrast identified within the left cerebral artery at the C2-C3 level which could represent an additional side occlusion. Trace contrast identified within the residual portion of the mid to distal vertebral artery which could be due to collateral flow. Faint contrast within the distal left vertebral artery may be due to the retrograde flow from the basilar artery. No significant stenosis within the left carotid arteries. Brain MRI shows small acute focal infarct medial right cerebellum. Age-related atrophy and considerable chronic small vessel changes. No abnormal past contrast enhancement. Chest x-ray show cardiomegaly. No other convincing evidence of acute cardiopulmonary disease. Decision was made to admit patient to PCU on telemetry for evaluation of possible acute versus subacute stroke. Principal Diagnosis Acute ischemic stroke of right cerebellum Discharge Exam Constitutional WD/WN, vitals as above Eyes PERRL, conjunctivae normal, anicteric sclerae ENMT external ear and nose normal, oropharynx normal Neck trachea midline, no thyromegaly Respiratory normal respiratory effort, lungs clear to auscultation Cardiovascular RRR, no murmur, no edema Gastrointestinal (Abdomen) normal bowel sounds, soft, nontender, no hepatosplenomegaly Musculoskeletal no cyanosis or clubbing, extremities motor strength 5/5 Skin no rashes, warm and dry Neurologic patellar DTR's 2+ bilat, sensation intact and PERRL, EOMI, accommodation nl, no face palsy, no dysarthria Psychiatric A+Ox3, euthymic affect Lymphatic no cervical or axillary lymphadenopathy Discharge Data Allergies Allergy/AdvReac Type Severity Reaction Status Date / Time Penicillins Allergy Severe ANAPHYLAXIS Verified 10/25/19 13:18 Consultations 10/25/19 15:57 ED Decision to Admit Stat 10/25/19 19:06 Consult Case Management - Discharge Planning Routine Consult Neurology Routine Consult Vascular Surgery Routine Ordered Studies 10/25/19 12:28 CT angio head wo/w Stat CT angio neck with con Stat 10/25/19 16:44 MR brain wo con Stat Hospital Course (1) Acute ischemic stroke: presented with a day of dizziness and some ambulatory difficulties that are getting much better most symptoms are completely resolved at time of discharge MRI brain shows acute ischemic stroke in right cerebellum most likely etiology was prolonged extension of neck, hyperextension looking up at trees likely pinched off his right vertebral artery long enough to cause small stroke, left vertebral artery is completely occluded no afib on monitor echo with EF 45%, trivial PFO with bubble study but presentation does not fit with embolic stroke already on high intensity statin BP well controlled no h/o diabetes, non-smoker significant atherosclerosis on CTA neck, head total occlusion of left vertebral artery, chronic finding, no intervention 60% stenosis of right internal carotid Dr. 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 nightly. and fish oil Total Time Total Time Spent Total Time Spent (In Minutes): 35 minutes Total Time Includes: Examination of the Patient, Discharge Planning, Medication Reconciliation, Communication With Other Providers (Dr. Murphy) and Other (answered 's questions) Discharge Plan Discharge Items Patient Disposition: Home - Self-Care Reason For Visit: TIA Discharge Diagnosis: Right cerebellar ischemic stroke Condition on Discharge: Good Goals: continue medical management of vascular disease follow up with US of carotid in 6 months Activity: Resume your previous activity Driving/Machine Use: Resume 1 day after discharge Weightbearing: Full weightbearing Non-emergency contact: Primary Care Provider and Neurologist Call non-emergency contact if: you have any medication questions and your symptoms worsen Follow-up/Referrals: Beto Murphy III, MD [Physician] - (Please, follow up at [facility]. *A nurse from this office will call you with the appointment information. The office is located at [address] in [place]. If you have any questions, call the office [phone].) Ora Cabello MD [Primary Care Provider] - 11/03/19 1:10 pm (Please, follow up with Dr. Ora Cabello on FridayNovember 03 at 1:10 pm. *THIS APPOINTMENT WILL BE IN [address] [facility] TO THIS [facility]. Unfortunately, there were no openings in the [facility] office. If you need to change this appointment, call the office at [phone].) Diet: Heart Healthy Add Attending Provider Instructions: Medications: - PLAVIX: 75mg daily, this is for secondary stroke prevention Right cerebellar stroke, causing dizziness most likely etiology was extending your neck at an angle that pinched off blood supply to right vertebral artery imaging of your neck shows several areas of atherosclerosis you have complete occlusion of left vertebral artery, this is chronic, no intervention recommended you have a 60% stenosis in the right internal carotid artery, recommend ultrasound in 6 months no evidence of diabetes, blood pressure well controlled you were taking aspirin, Dr. Murphy now recommends you replace the aspirin with Plavix FOLLOW UP - Dr. Cabello in one week - Dr. Murphy, neurology clinic, 2-3 weeks Risk Factors for Stroke: You can reduce your chances of stroke by working with your medical provider to adopt a healthy lifestyle. Some specific ways to lower your chance of stroke are: * If you are a smoker, now is the time to stop smoking cigarettes * If you are diabetic, improve the control of your blood sugars * Avoid excessive amounts of alcohol * Control high blood pressure * Lose weight if you are overweight * Be sure to lead an active lifestyle * Eat a healthy diet low in salt, cholesterol and fat You should know about other risk factors for stroke that you are unable to control. These include: * Age 55 years or older * Male gender * Certain racial groups: , or / * Family History of Stroke, Mini stroke or Heart Attack * Sickle Cell Disease Follow Up: It is important for you to keep your follow up appointments with your medical provider. Who to Call and When: Medical Emergencies: Call 911 immediately if you experience any of the following warning signs and symptoms of Stroke: * Sudden numbness or weakness of the face, arm or leg, especially on one side of the body * Sudden confusion, trouble speaking or understanding * Sudden trouble seeing in one or both eyes * Sudden trouble walking, dizziness, loss of balance or coordination * Sudden severe headache with no cause Do not delay calling 911 if you experience any warning signs or symptoms of a stroke. Delay in seeking medical attention may affect what treatments can be given to you. . Pending Studies at Discharge: No Stand-Alone Forms: Medications to Prevent Stroke, [facility] Trigemina, Smoking Cessation Medications and DC Order Prescriptions: New clopidogrel 75 mg Tablet 75 mg PO QAM 30 Days Qty: 30 RF: 3 Continued multivitamin Tablet 1 tab PO QAM RF: 0 atorvastatin 80 mg tablet 80 mg PO HS RF: 0 metoprolol succinate 50 mg tablet extended release 24 hr 50 mg PO QAM RF: 0 lisinopril 30 mg tablet 30 mg PO QAM RF: 0 [place]-3 350 mg-235 mg- 90 mg-597 mg Capsule,Delayed Release(Dr/Ec) 1 cap PO QAM RF: 0 Discontinued aspirin 81 mg Tablet,Delayed Release (Dr/Ec) 81 mg PO HS RF: 0 Discharge Orders: Discharge Order (Routine); Ordered 10/26/19 Ordered By: Ronnie Martinez/Other Patient Handouts: Prediabetes, Stroke Hours Follow, Stroke Sx, Stroke Ischemic, Stroke After Moods Depression, CAD, A1C Admission Data Admit Date/Time: 10/25/19 16:51 Attending Provider: Ronnie Hardy Admit Provider: Agueda Giron Primary Care Provider: Ora Cabello Other Providers: Agueda Giron ; Beto Murphy III ; Heath Patel Other Interventions: Discharge Summary Assessment (RN) Last Done: 10/26/19 13:39 DC Date/Time DO NOT enter until pt leaves facility: 10/26/19 14:42
[2019-10-26 13:15] VITALS: O2SAT 93
[2019-10-26 13:43] VITALS: PULSE 57
--- NOTE | 2019-10-26 15:01 | Pharmacy Report ---
Pharmacist Stroke Counseling - Date of Service October 26, 2019 - Scope: Pharmacy has been consulted to provide medication discharge counseling for this patient admitted with ischemic stroke as per the Pharmacist Discharge Counseling for Stroke Patients Protocol. - Medications on Discharge: Home Medications Medication Instructions Recorded Confirmed [place]-3 1 cap PO QAM 10/25/19 10/25/19 atorvastatin 80 mg PO HS 10/25/19 10/25/19 lisinopril 30 mg PO QAM 10/25/19 10/25/19 metoprolol succinate 50 mg PO QAM 10/25/19 10/25/19 multivitamin 1 tab PO QAM 10/25/19 10/25/19 New Rx's Medication Instructions Recorded clopidogrel 75 mg PO QAM 30 Days #30 tab 10/26/19 - Action: The above medications, specifically ones for stroke treatment/prophylaxis, have been reviewed in detail with the patient and/or patient customer account representative(s) prior to discharge. This includes indication, common adverse reactions, drug interactions, and medication administration. Medication counseling has been employed using the teach-back method to ensure understanding. - Outcome: The patient and/or patient customer account representative(s) have demonstrated understanding of the medications. Please note, they are aware that the pharmacist will call them within 72 hours post-discharge to confirm that the appropriate medications are being taken and answer any further medication related questions the patient might have at that time. Contact information Individual to be contacted: Patient Relationship to patient (if applicable): self Phone number: [phone] Best time to call: [] Additional comments: Discussed medication change, discontinuing aspirin and starting plavix. Patient reports he has been on plavix before. Patient with no further questions. Thank you for allowing pharmacy to be involved in the care of this patient. Please call [phone] or [phone] with any additional questions
--- NOTE | 2019-10-28 13:56 | Pharmacy Report ---
Pharmacist Post D/C Phone Note - Phone Note: Date of phone call: October 28, 2019. Individual with whom pharmacist spoke to: RADHA COSTA The following questions were reviewed during the phone call with responses listed below each: Can you tell me the medications that you are currently taking as well as when and how you take each medication? -See Table Below When have you missed any doses of your medications? - No What side effects are you having from your medications, specifically, the new medications you were started on? - No side effects reported What questions do you have about your medications? - No questions What problems are you having obtaining your medications? - Able to obtain new prescription When is your next appointment with your primary care doctor? - 11/03 Additional comments: - Mr. Costa reports that he stopped taking his aspirin and is now taking his clopidogrel. He reports it was only for a thirty day supply so he will talk to his doctor about refills/90 day supply. He also asked about a prescription for a walker. I let him know that I would contact case management if this was something discussed with them but he should also follow-up with his primary care physician, which he could do via telephone prior to his visit on the . As per the Pharmacist Discharge Counseling for Stroke Patients Protocol, this phone call has been completed within 72 hours of discharge. Thank you for allowing us to be involved in the care of this patient. - Home Medications: Home Medications Medication Instructions Recorded Confirmed [place]-3 1 cap PO QAM 10/25/19 10/25/19 atorvastatin 80 mg PO HS 10/25/19 10/25/19 lisinopril 30 mg PO QAM 10/25/19 10/25/19 metoprolol succinate 50 mg PO QAM 10/25/19 10/25/19 multivitamin 1 tab PO QAM 10/25/19 10/25/19 New Rx's Medication Instructions Recorded clopidogrel 75 mg PO QAM 30 Days #30 tab 10/26/19
== END 2019-10-26 14:42 | disposition home or self-care (01) ==
LOC: 2S 11:25 → ED 11:25 → SUATTDRO 16:51 → 2S 18:57

== ENCOUNTER 2023-01-05 15:52 | Observation (INO) ==
[2023-01-05 16:44] LABS: Basophils # (auto) 0.02 K/uL (0-0.2); Basophils % (auto) 0.2 %; Hematocrit (blood only) 49.8 % (42.0-52.0); Hemoglobin 17.3 g/dl (14.0-18.0); Immature Granulocytes # (auto) 0.01 K/uL (0.01-0.20); Immature Granulocytes % (auto) 0.1 %; Lymphocytes # (auto) 0.68 K/uL (1.2-3.4); Lymphocytes % (auto) 8.3 %; Mean Corpuscular Hemoglobin 33.9 pg (25.0-34.0); Mean Corpuscular Hgb Conc 34.7 g/dL (32.0-36.0); Mean Corpuscular Volume 97.6 fL (80.0-100.0); Mean Platelet Volume 11.7 fL (9.4-12.4); Monocytes # (auto) 0.63 K/uL (0.11-0.59); Monocytes % (auto) 7.7 %; Neutrophils # (auto) 6.82 K/uL (1.40-6.50); Neutrophils % (auto) 83.7 %; Platelet Count 167 K/uL (130-400); RDW Coefficient of Variation 12.4 % (11.5-14.5); RDW Standard Deviation 45.1 fL (36.4-46.3); White Blood Count 8.16 K/ul (4.8-10.8)
[2023-01-05] MEDS ORDERED: SODIUM CHLORIDE 0.9% 1000ML 1,000 ML IV ONE ×2 (16:45→18:51)
[2023-01-05 17:00] LABS: Alanine Aminotransferase 25 U/L (7-52); Albumin Globulin Ratio 1.4 (0.9-2); Albumin Level 4.6 gm/dl (3.4-5.0); Alkaline Phosphatase 67 U/L (34-104); Anion Gap 9 (3-11); Aspartate Aminotransferase 23 U/L (13-39); Bilirubin,Total 2.4 mg/dl (0.2-1.0); Blood Urea Nitrogen 14 mg/dl (6-23); Calcium 9.6 mg/dl (8.6-10.3); Carbon Dioxide 25 mmol/L (21-32); Chloride 102 mmol/L (98-107); Est GFR (African American) 70.3 ml/min; Est GFR (Non-African American) 60.6 ml/min; Globulin 3.2 gm/dl (2.5-4.0); Glucose 176 mg/dl (70-99(Fasting)); Potassium 3.9 mmol/L (3.5-5.1); Sodium 136 mmol/L (136-145); Total Protein 7.8 gm/dl (6.0-8.3)
[2023-01-05] MEDS ORDERED: ACETAMINOPHEN 500 MG TAB PO STA (17:27)
[2023-01-05] MEDS ORDERED: cefTRIAXone SODIUM 2,000 MG/70 ML BAG IV STA (17:55)
--- NOTE | 2023-01-05 17:55 | Emergency Department Note ---
Impression & Plan Fever, unknown origin, Near syncope, History of CAD (coronary artery disease) ED Provider Note Provider: Tyson Rose MD DATE OF SERVICE: 01/04/2023 CHIEF COMPLAINT: Fever, near syncope HISTORY OF PRESENT ILLNESS: Patient is a 77-year-old gentleman history of CAD open heart surgery, stroke, and recent root canal on Friday presenting here today complaining of developing fevers this afternoon. reports the patient says he was not feeling well and went upstairs and was seated on the side of the bed and was having chills. states that he could not really get up or stand and was very pale in nature. Has had some bad "vagal "responses according to the son when he has had Lyme disease before was out planting onions before his root canal on . Did use some Tylenol this morning. Son assisted patient with and brought him here for evaluation. Has not had any bleeding or discharge in the mouth. Denies significant throat or neck pain. Denies significant pain around the tooth. Denies shortness of breath or cough. Denies GI symptoms. Denies rashes. PAST MEDICAL HISTORY: As noted above MEDICATIONS: Reviewed home medication list SOCIAL HISTORY: lives with PHYSICAL EXAM: GENERAL: alert and oriented in no acute distress on stretcher Head: normocephalic and atraumatic EYES: No injection, discharge or icterus. PERRL NECK: Trachea midline. Supple. ENT: Mucous membranes pink and moist. Pharynx without erythema or exudate. LUNGS: Airway patent. No retractions. Breath sounds clear with good air entry bilaterally. HEART: Regular rate and rhythm. No chest wall tenderness ABDOMEN: Soft and non-tender, without guarding or rebound. SKIN: Acyanotic, warm, dry, without rashes EXTREMITIES: Without swelling, tenderness or deformity NEUROLOGICAL: No focal deficits. No aphasia. No facial droop or slurred speech. Ambulatory. EK bpm sinus rhythm with PVCs. No acute ST segment elevation with some lateral T wave flattening. QTc 438. CONTINUOUS CARDIAC MONITORING: was ordered and showed a heart rate of 60s-70s bpm in normal sinus rhythm with occasional PVCs Patient's laboratory studies and imaging reviewed. Differential includes Viral syndrome, dental infection, otitis, pharyngitis, pneumonia, influenza, meningitis, urinary tract infection, sepsis, bacteremia, cardiac disease, as well as other pathologies. IMPRESSION/MEDICAL DECISION MAKIN-year-old weak and seemingly near syncopal episode at home today and febrile there as well. Fever here. Given some Tylenol. Given some IV fluid. Lactate slightly elevated but no white count. Procalcitonin not significantly elevated. No rashes reported. No anemia. Troponin mildly elevated. Not having active chest pain. Question if this may be his cardiac baseline. Reviewed [facility] cardiology notes from Dr. Crowell who the patient follows with. Given a dose of ceftriaxone as in 2017 he tolerated this without issue for broad-spectrum and I biotic coverage. Question if he may have some component of a possible oral infection. Family is concerned for possible underlying Lyme disease but he has been treated for this before. Cultures are pending at this point. Given the near syncope episode and significant concern for patient's family discussed with him staying for observation. Does take Plavix regularly. Given ibuprofen his fever persist. Discussed with the hospitalist team findings and further observation. Lyme IgA positive but in light of prior positive is unclear if this represents an acute infection. Anaplasmosis smear negative. DIAGNOSIS: Near syncope, fever, history of CAD DISPOSITION: Hospitalist will evaluate Patient was agreeable with this plan. Past Med/Surg History Medical History H/O multiple concussions Heart disease Heart murmur Hypertension Lyme disease ST elevation myocardial infarction (STEMI) of inferior wall Subdural hematoma Surgical History H/O shoulder surgery History of heart artery stent S/P CABG x 1 Family History Mother , age 91 with congestive heart failure Heart disease Father , age 72 of an [place] Myocardial infarction Social History Smoking Status: Never smoker Hx Alcohol Use: No Hx Substance Use: No Preferred Language: Egyptian Communication Ability: Effective Motor Driver Required: No Beliefs That Will Affect Care: None marital status: Current Living Situation: Spouse current occupational status: retired 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[employer], Other Information That Helps Us Care for You: No other: Retired 2011 after 34 years Feels Safe at Home: Yes Safety Concerns: Feels Safe At This Time Assistive Devices: Glasses Allergies Allergies Allergy/AdvReac Type Severity Reaction Status Date / Time Penicillins Allergy Severe ANAPHYLAXIS Verified 01/05/23 17:52 Home Meds Home Medications Medication Instructions Recorded Confirmed atorvastatin 80 mg tablet 80 mg PO HS 10/25/19 01/05/23 lisinopril 30 mg tablet 30 mg PO QAM 10/25/19 01/05/23 metoprolol succinate 50 mg 50 mg PO QAM 10/25/19 01/05/23 tablet,extended release 24 hr multivitamin 1 tab PO QAM 10/25/19 01/05/23 omega 3 350 mg-dha 235 mg-epa 90 1 cap PO QAM 10/25/19 01/05/23 mg-fish oil 597 mg capsule,delay rel ([place]-3) Previous Rx's Medication Instructions Recorded clopidogrel 75 mg tablet 75 mg PO QAM 30 days #30 tabs 10/26/19 Results & Data (ED) Vital Signs Vital Signs - 24 hr 01/05/23 15:56 01/05/23 17:21 01/05/23 17:31 Temperature 38.5 C H 38.2 C H Temperature Source Oral Oral Pulse Rate 70 75 Pulse Rate [Right Brachial] 76 Pulse Rhythm [Right Brachial] Regular Pulse Strength [Right Brachial] Normal Respiratory Rate 16 19 Respiratory Effort / Characteristics Non-Labored Spontaneous Non-Labored Spontaneous Respiratory Depth Normal Normal Respiratory Pattern Regular Blood Pressure 130/71 Blood Pressure [Right Arm] 141/74 H Blood Pressure Mean 90 Blood Pressure Mean [Right Arm] 96 Pulse Oximetry 94 96 Oxygen Delivery Method Room Air Room Air Sepsis Recent Fever Within 48 Hours Yes Sepsis New/Unexplained Change in Mental Status No Sepsis Action Taken by Nursing No Action Required 01/05/23 18:47 01/05/23 17:29 01/05/23 17:30 Temperature 38.4 C H Temperature Source Oral Pulse Rate 74 77 Pulse Rate [Right Brachial] 70 Pulse Rhythm [Right Brachial] Regular Pulse Strength [Right Brachial] Normal Respiratory Rate 19 15 20 Respiratory Effort / Characteristics Non-Labored Spontaneous Respiratory Depth Normal Respiratory Pattern Blood Pressure Blood Pressure [Right Arm] 96/61 L Blood Pressure Mean Blood Pressure Mean [Right Arm] 72 Pulse Oximetry 94 98 96 Oxygen Delivery Method Room Air Room Air Room Air Sepsis Recent Fever Within 48 Hours Sepsis New/Unexplained Change in Mental Status Sepsis Action Taken by Nursing 01/05/23 18:00 01/05/23 18:35 Temperature Temperature Source Pulse Rate 75 83 Pulse Rate [Right Brachial] Pulse Rhythm [Right Brachial] Pulse Strength [Right Brachial] Respiratory Rate 21 Respiratory Effort / Characteristics Respiratory Depth Respiratory Pattern Blood Pressure Blood Pressure [Right Arm] Blood Pressure Mean Blood Pressure Mean [Right Arm] Pulse Oximetry 96 Oxygen Delivery Method Room Air Sepsis Recent Fever Within 48 Hours Sepsis New/Unexplained Change in Mental Status Sepsis Action Taken by Nursing Laboratory Data 01/05/23 16:12 01/05/23 16:12 Lab Results 01/05/23 01/05/23 01/05/23 Range/Units 16:12 16:12 16:12 WBC 8.16 (4.8-10.8) K/ul RBC 5.10 (4.70-6.10) M/uL Hgb 17.3 (14.0-18.0) g/dl Hct 49.8 (42.0-52.0) % MCV 97.6 (80.0-100.0) fL MCH 33.9 (25.0-34.0) pg MCHC 34.7 (32.0-36.0) g/dL RDW Std Deviation 45.1 (36.4-46.3) fL RDW Coeff of Jose Manuel 12.4 (11.5-14.5) % Plt Count 167 (130-400) K/uL MPV 11.7 (9.4-12.4) fL Immature Gran % (Auto) 0.1 % Neut % (Auto) 83.7 % Lymph % (Auto) 8.3 % Peach % (Auto) 7.7 % Eos % (Auto) 0.0 % Baso % (Auto) 0.2 % Neut # (Auto) 6.82 H (1.40-6.50) K/uL Lymph # (Auto) 0.68 L (1.2-3.4) K/uL Peach # (Auto) 0.63 H (0.11-0.59) K/uL Eos # (Auto) 0.00 (0-0.50) K/uL Baso # (Auto) 0.02 (0-0.2) K/uL Immature Gran # (Auto) 0.01 (0.01-0.20) K/uL Sodium 136 (136-145) mmol/L Potassium 3.9 (3.5-5.1) mmol/L Chloride 102 (98-107) mmol/L Carbon Dioxide 25 (21-32) mmol/L Anion Gap 9 (3-11) BUN 14 (6-23) mg/dl Creatinine 1.17 (0.6-1.4) mg/dl Est Cr Clr Drug Dosing Not Reportable Est GFR ( Amer) 70.3 ml/min Est GFR (Non-Af Amer) 60.6 ml/min BUN/Creatinine Ratio 12.0 (10-20) Glucose 176 H (70-99(Fasting)) mg/dl Lactate 2.3 H* (0.4-2.0) mmol/L Calcium 9.6 (8.6-10.3) mg/dl Total Bilirubin 2.4 H (0.2-1.0) mg/dl AST 23 (13-39) U/L ALT 25 (7-52) U/L Alkaline Phosphatase 67 (34-104) U/L Troponin I High Sens 33.0 H (0-20) pg/ml Total Protein 7.8 (6.0-8.3) gm/dl Albumin 4.6 (3.4-5.0) gm/dl Globulin 3.2 (2.5-4.0) gm/dl Albumin/Globulin Ratio 1.4 (0.9-2) Procalcitonin (0-0.5) ng/ml Anaplasma Smear See Comment Lyme Disease IgG Ab (Negative) Lyme Disease IgM Ab (Negative) SARS-CoV-2 (PCR) (Negative) Influenza Type A (PCR) (Neg) Influenza Type B (PCR) (Neg) RSV (RT-PCR) (Neg) 01/05/23 01/05/23 01/05/23 Range/Units 16:12 16:12 16:14 WBC (4.8-10.8) K/ul RBC (4.70-6.10) M/uL Hgb (14.0-18.0) g/dl Hct (42.0-52.0) % MCV (80.0-100.0) fL MCH (25.0-34.0) pg MCHC (32.0-36.0) g/dL RDW Std Deviation (36.4-46.3) fL RDW Coeff of Jose Manuel (11.5-14.5) % Plt Count (130-400) K/uL MPV (9.4-12.4) fL Immature Gran % (Auto) % Neut % (Auto) % Lymph % (Auto) % Peach % (Auto) % Eos % (Auto) % Baso % (Auto) % Neut # (Auto) (1.40-6.50) K/uL Lymph # (Auto) (1.2-3.4) K/uL Peach # (Auto) (0.11-0.59) K/uL Eos # (Auto) (0-0.50) K/uL Baso # (Auto) (0-0.2) K/uL Immature Gran # (Auto) (0.01-0.20) K/uL Sodium (136-145) mmol/L Potassium (3.5-5.1) mmol/L Chloride (98-107) mmol/L Carbon Dioxide (21-32) mmol/L Anion Gap (3-11) BUN (6-23) mg/dl Creatinine (0.6-1.4) mg/dl Est Cr Clr Drug Dosing Est GFR ( Amer) ml/min Est GFR (Non-Af Amer) ml/min BUN/Creatinine Ratio (10-20) Glucose (70-99(Fasting)) mg/dl Lactate (0.4-2.0) mmol/L Calcium (8.6-10.3) mg/dl Total Bilirubin (0.2-1.0) mg/dl AST (13-39) U/L ALT (7-52) U/L Alkaline Phosphatase (34-104) U/L Troponin I High Sens (0-20) pg/ml Total Protein (6.0-8.3) gm/dl Albumin (3.4-5.0) gm/dl Globulin (2.5-4.0) gm/dl Albumin/Globulin Ratio (0.9-2) Procalcitonin 0.12 (0-0.5) ng/ml Anaplasma Smear Lyme Disease IgG Ab Negative (Negative) Lyme Disease IgM Ab Positive A (Negative) SARS-CoV-2 (PCR) NEGATIVE (Negative) Influenza Type A (PCR) Negative (Neg) Influenza Type B (PCR) Negative (Neg) RSV (RT-PCR) Negative (Neg) 01/05/23 Range/Units 17:56 WBC (4.8-10.8) K/ul RBC (4.70-6.10) M/uL Hgb (14.0-18.0) g/dl Hct (42.0-52.0) % MCV (80.0-100.0) fL MCH (25.0-34.0) pg MCHC (32.0-36.0) g/dL RDW Std Deviation (36.4-46.3) fL RDW Coeff of Jose Manuel (11.5-14.5) % Plt Count (130-400) K/uL MPV (9.4-12.4) fL Immature Gran % (Auto) % Neut % (Auto) % Lymph % (Auto) % Peach % (Auto) % Eos % (Auto) % Baso % (Auto) % Neut # (Auto) (1.40-6.50) K/uL Lymph # (Auto) (1.2-3.4) K/uL Peach # (Auto) (0.11-0.59) K/uL Eos # (Auto) (0-0.50) K/uL Baso # (Auto) (0-0.2) K/uL Immature Gran # (Auto) (0.01-0.20) K/uL Sodium (136-145) mmol/L Potassium (3.5-5.1) mmol/L Chloride (98-107) mmol/L Carbon Dioxide (21-32) mmol/L Anion Gap (3-11) BUN (6-23) mg/dl Creatinine (0.6-1.4) mg/dl Est Cr Clr Drug Dosing Est GFR ( Amer) ml/min Est GFR (Non-Af Amer) ml/min BUN/Creatinine Ratio (10-20) Glucose (70-99(Fasting)) mg/dl Lactate 1.0 (0.4-2.0) mmol/L Calcium (8.6-10.3) mg/dl Total Bilirubin (0.2-1.0) mg/dl AST (13-39) U/L ALT (7-52) U/L Alkaline Phosphatase (34-104) U/L Troponin I High Sens (0-20) pg/ml Total Protein (6.0-8.3) gm/dl Albumin (3.4-5.0) gm/dl Globulin (2.5-4.0) gm/dl Albumin/Globulin Ratio (0.9-2) Procalcitonin (0-0.5) ng/ml Anaplasma Smear Lyme Disease IgG Ab (Negative) Lyme Disease IgM Ab (Negative) SARS-CoV-2 (PCR) (Negative) Influenza Type A (PCR) (Neg) Influenza Type B (PCR) (Neg) RSV (RT-PCR) (Neg) Administered Medications Atorvastatin Calcium (Atorvastatin 40 Mg Tab) 80 mg PO HS RAFI Stop: 02/04/23 20:59 Last Admin: 01/05/23 21:56 Dose: 80 mg Documented By: Azithromycin 500 mg/ Dextrose 255 mls @ 127.5 mls/hr IV Q24H RAFI Stop: 01/12/23 21:59 Last Admin: 01/05/23 21:53 Dose: 127.5 mls/hr Documented By: Discontinued Medications Acetaminophen (Acetaminophen 500 Mg Tab) 1,000 mg PO NOW STA Stop: 01/05/23 17:28 Last Admin: 01/05/23 17:46 Dose: 1,000 mg Documented By: ESTEFANY Sodium Chloride (Nss 1000ml) 1,000 mls @ 999 mls/hr IV .Q1H1M ONE Stop: 01/05/23 17:45 Last Infusion: 01/05/23 18:41 Dose: 0 mls/hr Documented By: Admin: 01/05/23 17:31 Dose: 999 mls/hr Documented By: ESTEFANY Ceftriaxone Sodium (Rocephin) 2,000 mg in 70 mls @ 140 mls/hr IV NOW STA Stop: 01/05/23 18:24 Last Infusion: 01/05/23 18:41 Dose: 0 mls/hr Documented By: Admin: 01/05/23 18:08 Dose: 140 mls/hr Documented By: ESTEFANY Sodium Chloride (Nss 1000ml) 250 mls @ 999 mls/hr IV .Q16M ONE Stop: 01/05/23 19:06 Last Infusion: 01/05/23 20:23 Dose: 0 mls/hr Documented By: Admin: 01/05/23 20:02 Dose: 999 mls/hr Documented By: QUENTIN Sodium Chloride (Nss 1000ml) 1,000 mls @ 999 mls/hr IV .Q1H1M ONE Stop: 01/05/23 19:51 Last Infusion: 01/05/23 19:52 Dose: 0 mls/hr Documented By: Admin: 01/05/23 18:58 Dose: 999 mls/hr Documented By: ESTEFANY Ibuprofen (Ibuprofen 600 Mg Tab) 600 mg PO NOW STA Stop: 01/05/23 18:52 Last Admin: 01/05/23 18:57 Dose: 600 mg Documented By: ESTEFANY Discharge Plan Visit Data Chief Complaint: Fever Stated Complaint: FEVER, WEAKNESS ED Provider: Tyson Rose Discharge Problem: Fever, unknown origin, Near syncope, History of CAD (coronary artery disease) Patient Disposition: Admitted As Inpatient Discharge Instructions Interventions: ED Discharge Assessment Last Done: 01/05/23 20:48
[2023-01-05 18:27] LABS: Influenza A virus by PCR Negative (Neg); Influenza B virus by PCR Negative (Neg); RSV by PCR Negative (Neg); SARS CoV2 RNA(COVID-19) Ceph NEGATIVE (Negative)
--- NOTE | 2023-01-05 18:40 | History & Physical Report ---
Date of Service January 05, 2023 Assessment & Plan (1) Fever, unknown origin: Plan: - CXR - BIOFIRE - U/A - Blood cultures - Ceftriaxone and azithromycin until further testing (2) Hyperlipidemia: Plan: chronic stable continue statin (3) Lyme disease: Plan: - await repeat testing and anaplasmosis (4) Hypertension: Plan: stable and chronic continue home meds History of Present Illness Chief Complaint: fever Primary Care Provider: Ora Cabello MD Oscar Costa is a 77 year old male with a past medical history of CAD open heart surgery, CVA, HLD, and recent root canal on Friday who presented to the ER complaining of developing fevers this afternoon. He states he was feeling lowsy and tired and decided to take a nap. His went to check on him and he was seated on the side of the bed and was having shking rigors. states that he could not really get up or stand and was very pale in nature. Per and sone he has had some bad "vagal "responses in the past and also when he had Lyme disease. Patient was out planting 700 onions before his root canal on . Did use some Tylenol this morning.He denies any throat, neck pain orany bleeding or discharge in the mouth. Denies significant pain around the tooth. Denies shortness of breath, chest pain or dyspnea. Denies GI symptoms. Denies rashes.Denies any urine sxs. He does admit to congestion and cough that just started since he has been in the ER. Allergies Allergy/AdvReac Type Severity Reaction Status Date / Time Penicillins Allergy Severe ANAPHYLAXIS Verified 01/05/23 17:52 Home Medications Medication Instructions Recorded Confirmed Type atorvastatin 80 mg tablet 80 mg PO HS 10/25/19 01/05/23 History lisinopril 30 mg tablet 30 mg PO QAM 10/25/19 01/05/23 History metoprolol succinate 50 mg 50 mg PO QAM 10/25/19 01/05/23 History tablet,extended release 24 hr multivitamin 1 tab PO QAM 10/25/19 01/05/23 History omega 3 350 mg-dha 235 mg-epa 90 1 cap PO QAM 10/25/19 01/05/23 History mg-fish oil 597 mg capsule,delay rel ([place]-3) clopidogrel 75 mg tablet 75 mg PO QAM 30 days #30 tabs 10/26/19 01/05/23 Rx Past Med/Surg History Medical History H/O multiple concussions Heart disease Heart murmur Hypertension Lyme disease ST elevation myocardial infarction (STEMI) of inferior wall Subdural hematoma Surgical History H/O shoulder surgery History of heart artery stent S/P CABG x 1 Family History Mother , age 91 with congestive heart failure Heart disease Father , age 72 of an [place] Myocardial infarction Social History Smoking Status: Never smoker Hx Alcohol Use: No Hx Substance Use: No Preferred Language: [place] Islander Communication Ability: Effective Beliefs That Will Affect Care: None marital status: Current Living Situation: Spouse current occupational status: retired 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[employer], 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 Feels Safe at Home: Yes Assistive Devices: Glasses Review of Systems Review of Systems: Denies any chest pain, SOB, Dyspnea All other ROS negative unless stated above in HPI Physical Exam Constitutional: + febrile, 96% on RA ENMT: root canal done left lower jaw, no erythema, swelling or discharge Neck: trachea midline, no thyromegaly Respiratory: normal respiratory effort, lungs clear to auscultation Cardiovascular: Rate/Rhythm: regular rate and regular rhythm Heart Sounds: + murmur Extremities: normal capillary refill; no calf tenderness and no edema Gastrointestinal (Abdomen): normal bowel sounds, soft, nontender, no hepatosplenomegaly Skin: no rashes, warm and dry Neurologic: PERRL, EOMI, accommodation nl, no face palsy, no dysarthria Psychiatric: A+Ox3, euthymic affect Results & Data Results & Data Vital Signs (Past 12 Hours) Vital Signs Temp Pulse Pulse Resp BP BP Pulse Ox 01/05/23 17:31 75 01/05/23 17:21 38.2 C H 76 19 141/74 H 96 01/05/23 15:56 38.5 C H 70 16 130/71 94 O2 Del Method 01/05/23 17:31 01/05/23 17:21 Room Air 01/05/23 15:56 Room Air Laboratory Results Abnormal lab results 01/05/23 01/05/23 01/05/23 Range/Units 16:12 16:12 16:12 Neut # (Auto) 6.82 H (1.40-6.50) K/uL Lymph # (Auto) 0.68 L (1.2-3.4) K/uL [place] # (Auto) 0.63 H (0.11-0.59) K/uL Glucose 176 H (70-99(Fasting)) mg/dl Lactate 2.3 H* (0.4-2.0) mmol/L Total Bilirubin 2.4 H (0.2-1.0) mg/dl Troponin I High Sens 33.0 H (0-20) pg/ml Supervising Physician Co-Signing Physician Notes Patient seen and examined, chart reviewed, case discussed with Deana Marte PA-C and I agree with the assessment and plan as above except as otherwise noted Labs and images reviewed Oscar is a 77-year-old male with a past medical history of Lyme disease, hypertension, orthostatic hypotension, hyperlipidemia who presents after gardening this week with shaking chills and rigors. He also has had chest congestion, sinus congestion and as of arrival in the ER some cough. He was found to have a fever of 38.4 but no leukocytosis. No imaging is initially available on assessment. Troponin is mildly elevated at 33. No clinical chest pain. Based on sinus congestion and cough chest x-ray and bio fire ordered. LYme IgM subsequently positive. Continue Rocephin/Azithromycin for lyme/PNA coverage, adjust pending final results. NOndistressed, symmetrical chest rise, HR regular at [facility]. Agree with above. PG Care Time/CCT Total # of Minutes Spent Total Time Spent with Patient: Total time spent is greater than 50% in coordination of care (as documented) at patient's floor/unit and/or counseling patient: Coding Level of Care Code 08966 INT INP/OBS CARE 2/55MIN Diagnoses Fever, unknown origin R50.9 Hyperlipidemia E78.5 Lyme disease A69.20 Hypertension I10
[2023-01-05 18:50] LABS: Lyme Ab IgG w/WB Rflx Negative (Negative)
[2023-01-05] MEDS ORDERED: IBUPROFEN 600 MG TAB PO STA (18:51)
[2023-01-05] MEDS ORDERED: SODIUM CHLORIDE 0.9% 1000ML 250 ML IV ONE (18:51)
[2023-01-05 19:10] LABS: Lyme Ab IgM w/WB Rflx Positive (Negative)
--- NOTE | 2023-01-05 20:12 | XRay Report ---
XR chest 2V PA/lateral CLINICAL HISTORY: cough and fever TECHNIQUE: 2 views of the chest were obtained. Comparison: Comparison is made to chest radiograph 10/25/2019 FINDINGS: Median sternotomy wires are unchanged. Calcified aortic knob is seen. Faint bibasilar airspace opacit ies are seen. No evidence of pleural effusion or pneumothorax. Degenerative changes of the thoracic s pine. IMPRESSION: Faint bibasilar airspace opacities which may represent atelectasis, pneumonia, and/or aspiration. Sta ble cardiomegaly. ACT 112: Negative or not required by law. Electronically signed by: Ronnie Eastman M.D. 01/05/2023 8:10 PM
[2023-01-05] MEDS: ATORVASTATIN 40 MG TAB PO SCH (21:56)
[2023-01-05] MEDS ORDERED: AZITHROMYCIN 500 MG in DEXTROSE 5% 250 ML IV SCH (22:00)
[2023-01-06 00:32] LABS: Appearance Urine Clear (Clear); Bilirubin Urine Negative (Negative); Blood Urine Negative (Negative); Color Urine Yellow; Glucose Urine UA Negative (Negative); Ketones Urine Negative (Negative); Leukocyte Esterase Urine Negative (Negative); Nitrite Urine Negative (Negative); Protein Urine Negative (Negative); Specific Gravity Urine 1.011 (1.000-1.030); Urobilinogen Urine Negative (Negative)
[2023-01-06 00:57] LABS: Adenovirus PCR Not Detected (NotDetected); Bordetella parapertussis PCR Not Detected (NotDetected); Bordetella pertussis PCR Not Detected (NotDetected); Chlamydia pneumoniae PCR Not Detected (NotDetected); Coronavirus 229E PCR Not Detected (NotDetected); Coronavirus CoV-2 (COVID19)PCR Not Detected (NotDetected); Coronavirus HKU1 PCR Not Detected (NotDetected); Coronavirus NL63 PCR Not Detected (NotDetected); Coronavirus OC43PCR Not Detected (NotDetected); Human Metapneumovirus PCR Not Detected (NotDetected); Influenza A PCR Not Detected (NotDetected); Influenza B PCR Not Detected (NotDetected); Mycoplasma pneumoniae PCR Not Detected (NotDetected); Parainfluenza Virus 1 PCR Not Detected (NotDetected); Parainfluenza Virus 2 PCR Not Detected (NotDetected); Parainfluenza Virus 3 PCR Not Detected (NotDetected); Parainfluenza Virus 4 PCR Not Detected (NotDetected); Respiratory Syncytial VirusPCR Not Detected (NotDetected); Rhinovirus/Enterovirus PCR Not Detected (NotDetected)
[2023-01-06 03:05] LABS: Hematocrit (blood only) 42.4 % (42.0-52.0); Hemoglobin 14.8 g/dl (14.0-18.0); Mean Corpuscular Hemoglobin 34.6 pg (25.0-34.0); Mean Corpuscular Hgb Conc 34.9 g/dL (32.0-36.0); Mean Corpuscular Volume 99.1 fL (80.0-100.0); Mean Platelet Volume 11.4 fL (9.4-12.4); Platelet Count 123 K/uL (130-400); RDW Coefficient of Variation 12.8 % (11.5-14.5); RDW Standard Deviation 46.2 fL (36.4-46.3); Red Blood Count 4.28 M/uL (4.70-6.10); White Blood Count 7.18 K/ul (4.8-10.8)
[2023-01-06 03:21] LABS: Albumin Level 3.5 gm/dl (3.4-5.0); BUN Creatinine Ratio 15.9 (10-20); Bilirubin Direct 0.4 mg/dl (0-0.2); Bilirubin,Total 1.7 mg/dl (0.2-1.0); Calcium 8.1 mg/dl (8.6-10.3); Creatinine Clr Calc Pharmacy 61.9 ml/min; Est GFR (African American) 73.3 ml/min; Est GFR (Non-African American) 63.2 ml/min; Potassium 4.4 mmol/L (3.5-5.1)
[2023-01-06] MEDS: ACETAMINOPHEN 325 MG TAB PO PRN ×3 (04:04→19:36)
--- NOTE | 2023-01-06 08:21 | Electrocardiogram Report ---
Test Reason : Blood Pressure : / mmHG Vent. Rate : 076 BPM Atrial Rate : 076 BPM P-R Int : 166 ms QRS Dur : 122 ms QT Int : 390 ms P-R-T Axes : -04 -28 108 degrees QTc Int : 438 ms Sinus rhythm with frequent Premature ventricular complexes Left ventricular hypertrophy with QRS widening and repolarization abnormality Abnormal ECG When compared with ECG of 25-OCT-2019 13:16, ST no longer elevated in Anterior leads Confirmed by Yovanny Hernandez ([id number]) on 01/06/2023 8:21:13 AM Referred By: REFERRED SELF Confirmed By:Yovanny Hernandez
[2023-01-06] MEDS: lisinopril 10 MG TAB PO SCH (08:29)
[2023-01-06] MEDS: METOPROLOL SUCC 50MG EXT REL TAB PO SCH (08:29)
[2023-01-06] MEDS ORDERED: CLOPIDOGREL BISULFATE 75 MG TAB PO SCH ×2 (09:00→21:00)
[2023-01-06] MEDS: DOXYCYCLINE HYCLATE 100 MG CAP PO SCH ×2 (10:59→19:37)
--- NOTE | 2023-01-06 12:26 | Hospitalist Progress Note ---
Date of Service January 06, 2023 Assessment & Plan (1) Fever, unknown origin: Plan: Suspected recurrent Lyme disease. IgM positive. All other test negative. Blood culture final report is pending. Oral doxycycline has been started. Continue intravenous Rocephin until blood cultures prove negative. Azithromycin discontinued. (2) Hyperlipidemia: Plan: stable . Continue statin (3) Lyme disease: Plan: IgM positive. Oral doxycycline ordered. Anaplasmosis testing negative (4) Hypertension: Plan: stable. Continue usual medications Plan Hopefully home tomorrowJanuary 07, on oral doxycycline Admission and Anticipated Discharge Date Admission Date: January 05, 2023 Subjective Alert and oriented. No acute distress. Lyme IgM is positive. He states he had Lyme disease approximately 7 years ago. He has continued tick exposure. Blood cultures remain pending. Oral doxycycline has been started. Continue intravenous Rocephin. Discontinue azithromycin. Hopefully home tomorrow, January 07, on oral doxycycline Review of Systems Review of Systems: Constitutional-no fever or chills ENT-no blurred vision, no double vision, no epistaxis, no sore throat Respiratory-no cough, no wheezing, no shortness of breath Cardiac-no palpitations, no chest pain, no syncope GI-no nausea, vomiting, diarrhea, melena, hematochezia -no urinary retention, no urinary incontinence, no dysuria, no hematuria Musculoskeletal-no joint pain, no muscle tenderness Skin-no bruising, no rashes, no pruritus Neuro-no isolated weakness, no paresthesia, no weakness Psych-no depression, no anxiety Physical Exam Physical Exam: General-alert and oriented x3, no fevers, no chills HEENT-head atraumatic and normocephalic, pupils equal and reactive to light, extraocular muscles intact Neck-no lymphadenopathy or thyromegaly, trachea midline Chest-clear to auscultation percussion. No rales wheezing or rhonchi Cardiac-regular rate and rhythm, normal S1 and S2 Abdomen-normal bowel sounds, nontender, no hepatosplenomegaly Extremities-no cyanosis, clubbing, or edema Neuro-cranial nerves II through XII intact, motor and sensory function within normal limits, strength symmetrical , no focal deficits Psych-normal affect, normal mood Results & Data Results & Data Vital Signs (Past 12 Hours) Vital Signs Temp Pulse Pulse Pulse Resp BP BP 01/06/23 11:09 38.2 C H 77 18 126/65 01/06/23 07:48 72 01/06/23 07:38 37.2 C 58 L 18 119/64 01/06/23 05:45 37.2 C 01/06/23 03:58 38.3 C H 69 18 111/52 L Pulse Ox O2 Del Method 01/06/23 11:09 95 Room Air 01/06/23 07:48 01/06/23 07:38 95 Room Air 01/06/23 05:45 01/06/23 03:58 97 Room Air Laboratory Results 01/06/23 02:47 01/06/23 02:47 PG Care Time/CCT Total # of Minutes Spent Total Time Spent with Patient: Total time spent is greater than 50% in coordination of care (as documented) at patient's floor/unit and/or counseling patient: Coding Level of Care Code 01330 SUB INP/OBS CARE 3/50MIN Diagnoses Fever, unknown origin R50.9 Hyperlipidemia E78.5 Lyme disease A69.20 Hypertension I10
[2023-01-06] MEDS ORDERED: Nursing to Pharmacy Communication SCH (12:45)
[2023-01-06] MEDS ORDERED: cefTRIAXone SODIUM 2,000 MG in DEXTROSE 5% 50 ML IV SCH (18:00)
[2023-01-06] MEDS: ATORVASTATIN 40 MG TAB PO SCH (19:36)
[2023-01-07] MEDS: DOXYCYCLINE HYCLATE 100 MG CAP PO SCH (08:36)
[2023-01-07] MEDS: METOPROLOL SUCC 50MG EXT REL TAB PO SCH (08:36)
[2023-01-07] MEDS: lisinopril 10 MG TAB PO SCH (08:37)
--- NOTE | 2023-01-07 12:00 | Discharge Summary ---
Date of Service January 07, 2023 Admission HPI Per Admitting Provider Oscar Costa is a 77 year old male with a past medical history of CAD open heart surgery, CVA, HLD, and recent root canal on Friday who presented to the ER complaining of developing fevers this afternoon. He states he was feeling lowsy and tired and decided to take a nap. His went to check on him and he was seated on the side of the bed and was having shking rigors. states that he could not really get up or stand and was very pale in nature. Per and sone he has had some bad "vagal "responses in the past and also when he had Lyme disease. Patient was out planting 700 onions before his root canal on . Did use some Tylenol this morning.He denies any throat, neck pain orany bleeding or discharge in the mouth. Denies significant pain around the tooth. Denies shortness of breath, chest pain or dyspnea. Denies GI symptoms. Denies rashes.Denies any urine sxs. He does admit to congestion and cough that just started since he has been in the ER. Principal Diagnosis Suspected recurrent Lyme disease with fever Discharge Exam General-alert and oriented x3, no fevers, no chills HEENT-head atraumatic and normocephalic, pupils equal and reactive to light, extraocular muscles intact Neck-no lymphadenopathy or thyromegaly, trachea midline Chest-clear to auscultation percussion. No rales wheezing or rhonchi Cardiac-regular rate and rhythm, normal S1 and S2 Abdomen-normal bowel sounds, nontender, no hepatosplenomegaly Extremities-no cyanosis, clubbing, or edema Neuro-cranial nerves II through XII intact, motor and sensory function within normal limits, strength symmetrical , no focal deficits Psych-normal affect, normal mood Discharge Data Allergies Allergy/AdvReac Type Severity Reaction Status Date / Time Penicillins Allergy Severe ANAPHYLAXIS Verified 01/05/23 17:52 Consultations 01/05/23 18:17 ED Decision to Admit Stat Hospital Course (1) Fever, unknown origin: Suspected recurrent Lyme disease. IgM positive. All other test negative. Blood culture final report is negative . Oral doxycycline has been started. Rocephin has been discontinued. Azithromycin discontinued. (2) Hyperlipidemia: stable . Continue statin (3) Lyme disease: IgM positive. Oral doxycycline ordered. Anaplasmosis testing negative (4) Hypertension: stable. Continue usual medications Plan Home today, January 07, on oral doxycycline Total Time Total Time Spent Total Time Spent (In Minutes): 40 minutes Discharge Plan Discharge Items Patient Disposition: Home - Self-Care Reason For Visit: FEVER OF UNKNOWN ORIGIN Discharge Diagnosis: Suspected recurrent Lyme disease Activity: Resume your previous activity Non-emergency contact: Primary Care Provider Call non-emergency contact if: you have any medication questions Follow-up/Referrals: Ora Cabello MD [Primary Care Provider] - Diet: Regular and Heart Healthy Addtl Attending Provider Instructions: Take doxycycline for 4 weeks Pending Studies at Discharge: No Stand-Alone Forms: My [employer], Smoking Cessation Medications and DC Order Prescriptions: New doxycycline hyclate 100 mg Capsule 100 mg PO BID Qty: 56 0RF Continued multivitamin Tablet 1 tab PO QAM atorvastatin 80 mg tablet 80 mg PO HS metoprolol succinate 50 mg tablet extended release 24 hr 50 mg PO QAM lisinopril 30 mg tablet 30 mg PO QAM [place]-3 350 mg-235 mg- 90 mg-597 mg Capsule,Delayed Release(Dr/Ec) 1 cap PO QAM clopidogrel 75 mg Tablet 75 mg PO QAM 30 Days Qty: 30 3RF Discharge Orders: Discharge Order (Routine); Ordered 01/07/23 Ordered By: Fabien Isaac Admission Data Admit Date/Time: 01/05/23 18:54 Attending Provider: Fabien Isaac Admit Provider: Hammad Ace Primary Care Provider: Ora Cabello Other Providers: Hammad Ace Coding Level of Care Code 83952 INP/OBS DISCH >30 MIN Diagnoses Fever, unknown origin R50.9 Hyperlipidemia E78.5 Lyme disease A69.20 Hypertension I10
[2023-01-09 03:27] LABS: 18KDIGG Band REACTIVE; 23KDIGG Band NON-REACTIVE; 23KDIGM Band NON-REACTIVE; 28KDIGG Band NON-REACTIVE; 30KDIGG Band NON-REACTIVE; 39KDIGG Band REACTIVE; 39KDIGM Band NON-REACTIVE; 41KDIGG Band REACTIVE; 41KDIGM Band NON-REACTIVE; 45KDIGG Band NON-REACTIVE; 58KDIGG Band NON-REACTIVE; 66KDIGG Band NON-REACTIVE; 93KDIGG Band NON-REACTIVE; Lyme Antibodies, WB IgG NEGATIVE (NEGATIVE); Lyme Antibodies, WB IgM NEGATIVE (NEGATIVE)
== END 2023-01-07 14:45 | disposition home or self-care (01) ==
LOC: ED 15:52 → 2N 15:52 → SUATTDRO 18:54 → 2N 20:48